=== PATIENT | female | born 1975 | race Two or more races ===

== ENCOUNTER 2021-07-03 11:54 | Inpatient (IN) ==
[2021-07-03] MEDS ORDERED: KETOROLAC TROMETHAMINE 15 MG/ML VIAL IV ONE ×2 (14:47→21:44)
[2021-07-03] MEDS ORDERED: SODIUM CHLORIDE 0.9% 1000ML 2,000 ML IV ONE (14:47)
--- NOTE | 2021-07-03 14:52 | Emergency Department Note ---
Impression & Plan Sepsis, TOA (tubo-ovarian abscess), Positive test ED Provider Note NAME: ILENE RODRIGUEZ AGE: 46 SEX: F : 1975 ARRIVES VIA: Walk-In INFORMANT: Patient ED PROVIDER(S): Shant Dillon DO CHIEF COMPLAINT: abdominal pain HPI: Patient is a 46-year-old female who presents ER for right lower quadrant abdominal pain which started 10 days ago. Pain has been present for the past 10 days and is worse with twisting, turning, and bending. It is dull and achy. She denies any nausea or vomiting. No dysuria, urgency, or frequency. Last menstrual period was over a year ago. Denies any vaginal bleeding or vaginal discharge. Fever started this past Friday. No other exacerbating or remitting factors. ROS: See above HPI for pertinent positives & negatives. A total of 10 systems reviewed and were otherwise negative. PAST MEDICAL HISTORY:See Below PAST SURGICAL HISTORY:See Below FAMILY HISTORY:See Below SOCIAL HISTORY:See Below HOME MEDICATIONS:See Below ALLERGIES:See Below VITALS:See Below PHYSICAL EXAMINATION: GENERAL: Sitting up in bed, alert, well appearing, well nourished, no distress, non-toxic EYE EXAM: normal conjunctiva. OROPHARYNX: no exudate, no erythema, lips, buccal mucosa, and tongue normal and mucous membranes are moist NECK: supple, no nuchal rigidity, no adenopathy, non-tender LUNGS: Clear to auscultation. Normal chest wall mechanics HEART: no murmurs, S1 normal and S2 normal ABDOMEN: abdomen soft, tender palpation right lower quadrant, normo-active bowel sounds, no masses, no rebound or guarding. UPPER EXTREMITIES: upper extremities are grossly normal. LOWER EXTREMITIES: No pitting edema. NEURO EXAM: Normal sensorium, cranial nerves II-XII grossly intact, normal speech, no gross weakness of arms, no gross weakness of legs. MEDICAL DECISION MAKING: Patient is a 46-year-old female who presents ER for abdominal pain which has been present for the past 10 days. IV was established blood work was obtained. She is found to be febrile and tachycardic. Labs show leukocytosis of 14.8 thousand. No significant anemia. BMP with mild hyponatremia. LFTs bilirubin and troponin was negative. Lipase was unremarkable. hCG was positive which is extremely abnormal as this patient has not had a menstrual period in over a year. UA does show nitrates leuks whites as well as bacteria and greater than [address] abdomen pelvis shows a likely tubo-ovarian abscess. Patient was updated bedside. Patient was given IV antibiotics. Patient was discussed with dottie from DATA PROCESSING CONSULTANT who evaluated the patient and recommended admission. Patient was given IV fluids Toradol Rocephin and doxycycline while in the ER uncertain of the true cause of the positive beta hCG with this related to her versus possible cancerous mass versus false positive. Triage Nursing notes reviewed. Limited review of prior medical records performed Vital Signs: reviewed and remarkable for HTN and febrile Differential diagnosis: Differential diagnoses includes but is not limited to gastritis, peptic ulcer disease, GERD, gallbladder disease, pancreatitis, small bowel obstruction, acute coronary syndrome, pericarditis, ischemic bowel, irritable bowel disease, irritable bowel syndrome, appendicitis, diverticulitis, malignancy, hernia, urinary tract infection, torsion, /ectopic (if female), perforation, trauma, infectious. ER treatment provided: See below Diagnostics interpreted by me: ECG: none Cardiac Monitoring: An order was placed for continuous cardiac monitoring. The monitor shows a rate of 80 with sinus rhythm. Laboratory studies: As stated above and show below. Imaging studies: See below Consultation(s): Discussed with Dr. Hartley who will evaluate the patient at bedside and will admit the patient Procedures: none Critical Care: None Past Med/Surg History Social History Smoking Status: Never smoker Feels Safe at Home: Yes Allergies Allergies Allergy/AdvReac Type Severity Reaction Status Date / Time No Known Allergies Allergy Unverified 07/03/21 15:30 Home Meds Home Medications Medication Instructions Recorded Confirmed omeprazole 20 mg capsule,delayed 20 mg PO DAILY 07/03/21 07/03/21 release Results & Data (ED) Vital Signs Vital Signs - 24 hr 07/03/21 12:09 07/03/21 15:17 07/03/21 15:45 Temperature 38.3 C H 38.5 C H 38.5 C H Temperature Source Oral Oral Oral Pulse Rate 94 H 93 H Pulse Rate [Radial] 93 H 86 Pulse Rhythm Regular Regular Pulse Rhythm [Radial] Regular Regular Pulse Strength Normal Pulse Strength [Radial] Normal Normal Respiratory Rate 20 16 17 Respiratory Effort / Characteristics Non-Labored Spontaneous Non-Labored Non-Labored Respiratory Depth Normal Normal Normal Respiratory Pattern Regular Regular Regular Blood Pressure 141/89 H Blood Pressure [Right Arm] 147/82 H Blood Pressure Mean 106 Blood Pressure Mean [Right Arm] 103 Blood Pressure Position [Right Arm] Pulse Oximetry 96 99 97 Oxygen Delivery Method Room Air Room Air Room Air Sepsis Recent Fever Within 48 Hours No Sepsis New/Unexplained Change in Mental Status N/A Sepsis Action Taken by Nursing No Action Required 07/03/21 16:26 07/03/21 17:10 Temperature 37.8 C H 37.2 C Temperature Source Oral Oral Pulse Rate Pulse Rate [Radial] 80 82 Pulse Rhythm Pulse Rhythm [Radial] Regular Pulse Strength Pulse Strength [Radial] Normal Respiratory Rate 16 16 Respiratory Effort / Characteristics Non-Labored Respiratory Depth Normal Normal Respiratory Pattern Regular Blood Pressure Blood Pressure [Right Arm] 160/83 H 162/93 H Blood Pressure Mean Blood Pressure Mean [Right Arm] 108 116 Blood Pressure Position [Right Arm] Lying Pulse Oximetry 98 99 Oxygen Delivery Method Room Air Room Air Sepsis Recent Fever Within 48 Hours Sepsis New/Unexplained Change in Mental Status Sepsis Action Taken by Nursing Laboratory Data Result diagrams: 07/03/21 Unknown 07/03/21 Unknown Lab Results 07/03/21 07/03/21 07/03/21 Range/Units 15:04 Unknown Unknown WBC (4.8-10.8) K/uL RBC (4.2-5.4) M/uL Hgb (12.0-16.0) g/dL POC Hgb 15.0 (12.0-16.0) g/dl Hct (37-47) % POC Hct 44 (37-47) % MCV (80-100) fL MCH (25-34) pg MCHC (32-36) g/dL RDW Std Deviation (36.4-46.3) fL RDW Coeff of Baljeet (11.5-14.5) % Plt Count (130-400) K/uL MPV (7.4-10.4) fL Immature Gran % (Auto) % Neut % (Auto) % Lymph % (Auto) % [place] % (Auto) % Eos % (Auto) % Baso % (Auto) % Neut # (Auto) (1.4-6.5) K/uL Lymph # (Auto) (1.2-3.4) K/uL [place] # (Auto) (0.11-0.59) K/uL Eos # (Auto) (0-0.5) K/uL Baso # (Auto) (0-0.2) K/uL Immature Gran # (Auto) (0.00-0.02) K/uL Polychromasia POC Sodium 137 (135-144) mmol/L Sodium 134 L (136-145) mmol/L POC Potassium 3.7 (3.3-5.0) mmol/L Potassium 3.6 (3.5-5.1) mmol/L POC Chloride 98 L (101-112) mmol/L Chloride 101 (98-107) mmol/L Carbon Dioxide 28 (21-32) mmol/L POC Total CO2 28 (24-31) mmol/L Anion Gap 5.0 (3-11) POC Anion Gap 16.0 (16-25) mmol/L POC BUN 12 (7-18) mg/dl BUN 11 (7-18) mg/dl Creatinine 0.95 (0.6-1.2) mg/dl POC Creatinine 0.8 (0.6-1.3) mg/dl Est Cr Clr Drug Dosing 72.7 ml/min Est GFR ( Amer) 83.8 ml/min Est GFR (Non-Af Amer) 72.3 ml/min BUN/Creatinine Ratio 11.1 (10-20) Glucose 97 (70-99) mg/dl POC Glucose (other) 108 H (70-99) mg/dl Calcium 9.2 (8.5-10.1) mg/dl POC Ioniz Calcium Anuel 1.17 (1.12-1.32) mmol/l Total Bilirubin 0.5 (0.2-1) mg/dl AST 15 (15-37) U/L ALT 23 (12-78) U/L Alkaline Phosphatase 105 (45-117) U/L Troponin I < 0.015 (0-0.045) ng/ml Total Protein 8.8 H (6.4-8.2) gm/dl Albumin 3.4 (3.4-5.0) gm/dl Globulin 5.4 H (2.5-4.0) gm/dl Albumin/Globulin Ratio 0.6 L (0.9-2) Lipase 126 (73-393) U/L HCG, Qual Positive (Negative) Urine Color Urine Appearance (Clear) Urine pH (4.5-7.5) Ur Specific [place] (1.000-1.030) Urine Protein (Negative) Urine Glucose (UA) (Negative) Urine Ketones (Negative) Urine Blood (Negative) Urine Nitrite (Negative) Urine Bilirubin (Negative) Urine Urobilinogen (Negative) Ur Leukocyte Esterase (Negative) Urine WBC (Auto) (0-5) /hpf Urine RBC (Auto) (0-4) /hpf U Hyaline Cast (Auto) (0-5) /lpf U Epithel Cells (Auto) (0-5) /lpf Urine Bacteria (Auto) (Negative) Granular Casts (0) /lpf 07/03/21 07/03/21 Range/Units Unknown Unknown WBC 14.84 H (4.8-10.8) K/uL RBC 4.43 (4.2-5.4) M/uL Hgb 14.3 (12.0-16.0) g/dL POC Hgb (12.0-16.0) g/dl Hct 42.9 (37-47) % POC Hct (37-47) % MCV 96.8 (80-100) fL MCH 32.3 (25-34) pg MCHC 33.3 (32-36) g/dL RDW Std Deviation 48.7 H (36.4-46.3) fL RDW Coeff of Baljeet 13.7 (11.5-14.5) % Plt Count 357 (130-400) K/uL MPV 10.2 (7.4-10.4) fL Immature Gran % (Auto) 0.7 % Neut % (Auto) 84.1 % Lymph % (Auto) 8.1 % [place] % (Auto) 6.9 % Eos % (Auto) 0.1 % Baso % (Auto) 0.1 % Neut # (Auto) 12.49 H (1.4-6.5) K/uL Lymph # (Auto) 1.20 (1.2-3.4) K/uL [place] # (Auto) 1.03 H (0.11-0.59) K/uL Eos # (Auto) 0.01 (0-0.5) K/uL Baso # (Auto) 0.01 (0-0.2) K/uL Immature Gran # (Auto) 0.10 H (0.00-0.02) K/uL Polychromasia 1+ POC Sodium (135-144) mmol/L Sodium (136-145) mmol/L POC Potassium (3.3-5.0) mmol/L Potassium (3.5-5.1) mmol/L POC Chloride (101-112) mmol/L Chloride (98-107) mmol/L Carbon Dioxide (21-32) mmol/L POC Total CO2 (24-31) mmol/L Anion Gap (3-11) POC Anion Gap (16-25) mmol/L POC BUN (7-18) mg/dl BUN (7-18) mg/dl Creatinine (0.6-1.2) mg/dl POC Creatinine (0.6-1.3) mg/dl Est Cr Clr Drug Dosing ml/min Est GFR ( Amer) ml/min Est GFR (Non-Af Amer) ml/min BUN/Creatinine Ratio (10-20) Glucose (70-99) mg/dl POC Glucose (other) (70-99) mg/dl Calcium (8.5-10.1) mg/dl POC Ioniz Calcium Anuel (1.12-1.32) mmol/l Total Bilirubin (0.2-1) mg/dl AST (15-37) U/L ALT (12-78) U/L Alkaline Phosphatase (45-117) U/L Troponin I (0-0.045) ng/ml Total Protein (6.4-8.2) gm/dl Albumin (3.4-5.0) gm/dl Globulin (2.5-4.0) gm/dl Albumin/Globulin Ratio (0.9-2) Lipase (73-393) U/L HCG, Qual (Negative) Urine Color Dark Yellow Urine Appearance Cloudy A (Clear) Urine pH 5.5 (4.5-7.5) Ur Specific [place] 1.031 H (1.000-1.030) Urine Protein 3+ H (Negative) Urine Glucose (UA) Negative (Negative) Urine Ketones Trace H (Negative) Urine Blood 1+ H (Negative) Urine Nitrite Positive A (Negative) Urine Bilirubin 1+ H (Negative) Urine Urobilinogen Negative (Negative) Ur Leukocyte Esterase Trace H (Negative) Urine WBC (Auto) 10-30 H (0-5) /hpf Urine RBC (Auto) 0-4 (0-4) /hpf U Hyaline Cast (Auto) 10-30 H (0-5) /lpf U Epithel Cells (Auto) >30 H (0-5) /lpf Urine Bacteria (Auto) 4+ H (Negative) Granular Casts 1-5 H (0) /lpf Administered Medications Doxycycline Hyclate 100 mg/ (Dextrose) 110 mls @ 50 mls/hr IV NOW STA Stop: 07/03/21 18:43 Last Admin: 07/03/21 17:52 Dose: 50 mls/hr Documented by: [id number] Discontinued Medications Sodium Chloride (Nss 1000ml) 2,000 mls @ 999 mls/hr IV .Q2H1M ONE Stop: 07/03/21 16:38 Last Admin: 07/03/21 16:28 Dose: 999 mls/hr Documented by: [id number] Infusion: 07/03/21 16:28 Dose: 999 mls/hr Documented by: [id number] Admin: 07/03/21 15:06 Dose: 999 mls/hr Documented by: [id number] Sodium Chloride (Nss 1000ml) 2,000 mls @ 999 mls/hr IV .Q2H1M ONE Stop: 07/03/21 16:47 Last Admin: 07/03/21 17:16 Dose: 999 mls/hr Documented by: [id number] Ceftriaxone Sodium (Rocephin) 1,000 mg in 50 mls @ 100 mls/hr IV NOW STA Stop: 07/03/21 17:01 Last Infusion: 07/03/21 17:53 Dose: 0 mls/hr Documented by: [id number] Admin: 07/03/21 17:07 Dose: 100 mls/hr Documented by: [id number] Ioversol (Optiray 320 100ml) 94 ml IV ONCE ONE Stop: 07/03/21 15:22 Last Admin: 07/03/21 15:21 Dose: 94 ml Documented by: [id number] Ketorolac Tromethamine (Ketorolac Tromethamine 15 Mg/Ml Vial) 15 mg IV NOW ONE Stop: 07/03/21 14:48 Last Admin: 07/03/21 15:11 Dose: 15 mg Documented by: [id number] Imaging Data Radiologist's Impression: Abdomen/Pelvis CT 07/03/21 14:38 CT abd pelvis IV con only CLINICAL HISTORY: fever abd pain COMPARISON STUDY: None. TECHNIQUE: A dose lowering technique was utilized adhering to the principles of ALARA. CT DOSE: 584.97 mGycm FINDINGS: Lower chest: Limited evaluation of lung bases shows no evidence of acute abnormalities.. Liver: The contrast-enhanced liver is normal in size, contour, and attenuation. There is no intrahepatic biliary ductal dilatation. The hepatic veins and portal veins are patent. Focal calcification is seen within right lobe of the liver. Gallbladder: Unremarkable. Spleen: Normal in size and attenuation. Pancreas: Unremarkable. Adrenal glands: Unremarkable. Kidneys: There is symmetric renal cortical enhancement. The kidneys are normal in size without hydronephrosis. Pelvic viscera: Urinary bladder is partially decompressed which limits evaluation. Uterine cavity is mildly enlarged. Tubular hypoattenuating lesions with mucosal thickening, septation, enhancement and surrounding edema is seen. Small amount of free fluid is seen within cul-de-sac. Bowel: Bowel loops are nondilated. Appendix is not well seen. Loops of large bowel are fluid-filled which could be seen in diarrheal state. Mild diverticulosis of sigmoid colon is seen which is associated with mild surround ing fat stranding which might represent developing diverticulitis or reactive changes due to adjacent inflammatory pelvic process. Peritoneum: There is no intraperitoneal free air or abdominal ascites. Vasculature: The abdominal aorta is normal in course and caliber. Adenopathy: None. Skeletal structures: Minimal degenerative changes of the spine. IMPRESSION: 1. Tubular hypoattenuating lesions with septation, mucosal enhancement and thickening as well as surrounding edema could represent pyosalpinx/tubo-ovarian abscess. Further DATA PROCESSING CONSULTANT evaluation and possible pelvic ultrasound might be considered . 2. Diverticulosis of sigmoid colon colon is seen with mild surrounding fat stranding which might represent reactive changes due to close proximity a dose of pelvic inflammatory process versus developing diverticulitis which is less likely. 3. The rest of findings as above. ACT 112: Negative or not required by law. The above report was generated using voice recognition software. It may contain grammatical, syntax or spelling errors. Electronically signed by: Neela Barrera DO 07/03/2021 4:07 PM Discharge Plan Visit Data Chief Complaint: Abdominal Pain Stated Complaint: ABDOMINAL PAIN ED Provider: Shant Dillon Discharge Problem: Sepsis, TOA (tubo-ovarian abscess), Positive test Forms Stand Alone Forms: [facility] Prescriptions Prescriptions: No Action omeprazole 20 mg capsule,delayed release(DR/EC) 20 mg PO DAILY RF: 0 Referrals Referrals: Vicky Hernandez [Nurse Heel Lining Paster] - Discharge Problem: Sepsis Qualifiers: Sepsis type: sepsis due to unspecified organism Sepsis acute organ dysfunction status: unspecified Qualified Code(s): A41.9 - Sepsis, unspecified organism
[2021-07-03] MEDS: SODIUM CHLORIDE 0.9% 1000ML 2,000 ML IV ONE ×2 (15:06→16:28)
[2021-07-03 15:17] LABS: iSTAT Creatinine 0.8 mg/dl (0.6-1.3); iSTAT Ionized Calcium 1.17 mmol/l (1.12-1.32); iSTAT Potassium 3.7 mmol/L (3.3-5.0)
[2021-07-03 15:17] LABS: Appearance Urine Cloudy (Clear); Bacteria Urine Automated 4+ (Negative); Blood Urine 1+ (Negative); Color Urine Dark Yellow; Epithelial Cell Urine Auto >30 /lpf (0-5); Glucose Urine UA Negative (Negative); Ketones Urine Trace (Negative); Leukocyte Esterase Urine Trace (Negative); Nitrite Urine Positive (Negative); Protein Urine 3+ (Negative); RBC Urine Automated 0-4 /hpf (0-4); Specific Gravity Urine 1.031 (1.000-1.030); Urobilinogen Urine Negative (Negative); pH Urine 5.5 (4.5-7.5)
[2021-07-03] MEDS ORDERED: OPTIRAY 320 100ml IV ONE (15:21)
[2021-07-03 15:22] LABS: Bilirubin Urine 1+ (Negative)
[2021-07-03 15:33] LABS: Alanine Aminotransferase 23 U/L (12-78); Albumin Level 3.4 gm/dl (3.4-5.0); Aspartate Aminotransferase 15 U/L (15-37); BUN Creatinine Ratio 11.1 (10-20); Blood Urea Nitrogen 11 mg/dl (7-18); Calcium 9.2 mg/dl (8.5-10.1); Carbon Dioxide 28 mmol/L (21-32); Chloride 101 mmol/L (98-107); Creatinine Clr Calc Pharmacy 72.7 ml/min; Est GFR (African American) 83.8 ml/min; Est GFR (Non-African American) 72.3 ml/min; Glucose 97 mg/dl (70-99); Lipase 126 U/L (73-393); Potassium 3.6 mmol/L (3.5-5.1); Sodium 134 mmol/L (136-145)
[2021-07-03 15:34] LABS: Basophils # (auto) 0.01 K/uL (0-0.2); Basophils % (auto) 0.1 %; Eosinophils # (auto) 0.01 K/uL (0-0.5); Eosinophils % (auto) 0.1 %; Hematocrit (blood only) 42.9 % (37-47); Hemoglobin 14.3 g/dL (12.0-16.0); Immature Granulocytes % (auto) 0.7 %; Lymphocytes % (auto) 8.1 %; Mean Corpuscular Hemoglobin 32.3 pg (25-34); Mean Corpuscular Hgb Conc 33.3 g/dL (32-36); Mean Corpuscular Volume 96.8 fL (80-100); Mean Platelet Volume 10.2 fL (7.4-10.4); Monocytes # (auto) 1.03 K/uL (0.11-0.59); Monocytes % (auto) 6.9 %; Neutrophils # (auto) 12.49 K/uL (1.4-6.5); Neutrophils % (auto) 84.1 %; Platelet Count 357 K/uL (130-400); Polychromasia 1+; RDW Coefficient of Variation 13.7 % (11.5-14.5); RDW Standard Deviation 48.7 fL (36.4-46.3); Red Blood Count 4.43 M/uL (4.2-5.4); White Blood Count 14.84 K/uL (4.8-10.8)
[2021-07-03 15:38] LABS: Albumin Globulin Ratio 0.6 (0.9-2); Alkaline Phosphatase 105 U/L (45-117); Bilirubin,Total 0.5 mg/dl (0.2-1); Globulin 5.4 gm/dl (2.5-4.0); Total Protein 8.8 gm/dl (6.4-8.2); Troponin I < 0.015 ng/ml (0-0.045)
[2021-07-03 16:03] LABS: Pregnancy Test, Serum Positive (Negative)
--- NOTE | 2021-07-03 16:08 | CT Scan Report ---
CT abd pelvis IV con only CLINICAL HISTORY: fever abd pain COMPARISON STUDY: None. TECHNIQUE: A dose lowering technique was utilized adhering to the principles of ALARA. CT DOSE: 584.97 mGycm FINDINGS: Lower chest: Limited evaluation of lung bases shows no evidence of acute abnormalities.. Liver: The contrast-enhanced liver is normal in size, contour, and attenuation. There is no intrahepa tic biliary ductal dilatation. The hepatic veins and portal veins are patent. Focal calcification is seen within right lobe of the liver. Gallbladder: Unremarkable. Spleen: Normal in size and attenuation. Pancreas: Unremarkable. Adrenal glands: Unremarkable. Kidneys: There is symmetric renal cortical enhancement. The kidneys are normal in size without hydron ephrosis. Pelvic viscera: Urinary bladder is partially decompressed which limits evaluation. Uterine cavity is mildly enlarged. Tubular hypoattenuating lesions with mucosal thickening, septation, enhancement and surrounding edema is seen. Small amount of free fluid is seen within cul-de-sac. Bowel: Bowel loops are nondilated. Appendix is not well seen. Loops of large bowel are fluid-filled w hich could be seen in diarrheal state. Mild diverticulosis of sigmoid colon is seen which is associat ed with mild surrounding fat stranding which might represent developing diverticulitis or reactive ch anges due to adjacent inflammatory pelvic process. Peritoneum: There is no intraperitoneal free air or abdominal ascites. Vasculature: The abdominal aorta is normal in course and caliber. Adenopathy: None. Skeletal structures: Minimal degenerative changes of the spine. IMPRESSION: 1. Tubular hypoattenuating lesions with septation, mucosal enhancement and thickening as well as sera rounding edema could represent pyosalpinx/tubo-ovarian abscess. Further POLYMER TESTER evaluation and possible p elvic ultrasound might be considered . 2. Diverticulosis of sigmoid colon colon is seen with mild surrounding fat stranding which might rep resent reactive changes due to close proximity a dose of pelvic inflammatory process versus developin g diverticulitis which is less likely. 3. The rest of findings as above. ACT 112: Negative or not required by law. The above report was generated using voice recognition software. It may contain grammatical, syntax o r spelling errors. Electronically signed by: Neela Barrera DO 07/03/2021 4:07 PM
[2021-07-03] MEDS ORDERED: DOXYCYCLINE HYCLATE 100 MG in DEXTROSE 5% 100 ML IV STA (16:32)
[2021-07-03] MEDS ORDERED: cefTRIAXone SODIUM 1,000 MG/50 ML BAG IV STA (16:32)
[2021-07-03] MEDS ORDERED: ALUMINUM/MAGNESIUM/SIMETH (MAALOX MAX) 30 ML UDC PO PRN (18:00)
[2021-07-03] MEDS ORDERED: ZOLPIDEM TARTRATE 5 MG TAB PO PRN (18:00)
[2021-07-03] MEDS ORDERED: MAGNESIUM HYDROXIDE SUSP 30 ML UDC PO PRN (18:00)
--- NOTE | 2021-07-03 19:50 | Ultrasound Report ---
PELVIC ULTRASOUND CLINICAL HISTORY: suspected TOA with +ve test COMPARISON STUDY: CT of the abdomen and pelvis performed earlier today. TECHNIQUE: Transabdominal and transvaginal sonography of the pelvis was performed. FINDINGS: Uterus measures 9.7 x 4.3 x 5.2 cm. Endometrium measures 4 mm in thickness. No intrauterine gestational sac is identified. There is a small amount of fluid within the pelvis. Left ovary is son ographically normal on transabdominal exam, measuring 2.3 x 1.7 x 2.5 cm. The right ovary is partiall y obscured, measuring approximately 2.9 x 2.1 x 2.3 cm. Color flow is identified within each ovary. N ote is made of a complex superior right adnexal fluid collection, adjacent to the ovary and superior aspect of the uterus. This extends to the midline. This corresponds to the fluid collection shown on CT performed earlier today. Measurements are difficult to obtain by sonography however this measures approximately 6 x 4 cm. This contains hypoechoic material. IMPRESSION: 1. Complex multiloculated collection within the superior right adnexa, adjacent to the right ovary an d superior aspect of the uterus extending to the midline. This corresponds to the collection shown on CT. Measurements difficult to obtain by sonography however the largest component measures approximat tomás 6 x 4 cm. This is suggestive of a tubo-ovarian abscess. 2. No intrauterine gestational sac identified. This could be correlated with beta hCG levels. 3. Small amount of fluid within the pelvis. ACT 112: Negative or not required by law. Electronically signed by: Dayron Garcia M.D. 07/03/2021 7:48 PM
[2021-07-03] MEDS ORDERED: Nursing to Pharmacy Communication SCH (21:15)
[2021-07-03] MEDS ORDERED: oxyCODONE/ACETAMINOPHEN 5mg/325mg TAB PO PRN (21:41)
[2021-07-03] MEDS: LACTATED RINGER'S 1,000 ML IV SCH (21:46)
[2021-07-03] MEDS ORDERED: KETOROLAC TROMETHAMINE 15 MG/ML VIAL ONE (22:09)
[2021-07-03] MEDS: cefOXitin 2,000 MG/60 ML BAG IV SCH (22:15)
--- NOTE | 2021-07-04 01:01 | History and Physical Report ---
HISTORY OF PRESENT ILLNESS: The patient is a 46-year-old who presented to the Emergency Room with co mplaints of right abdominal pain x10 days. CT scan done showed possible tubo-ovarian abscess. The p marilu reports the pain has been dull and achy over the last 10 days and was getting worse. She denie s any shortness of breath, chills, fever, nausea or vomiting. The pain however, was worse with twist ing, turning or bending. PAST MEDICAL HISTORY: No diabetes, hypertension or asthma. PAST SURGICAL HISTORY: The patient had tubal ligation for over 10 years. Last menses was over a yea r ago. FAMILY HISTORY: Noncontributory. SOCIAL HISTORY: The patient denies tobacco, drug or alcohol use. PHYSICAL EXAMINATION: GENERAL: Well-developed, well-nourished white female in moderate discomfort, but in no acute distres s. VITAL SIGNS: Blood pressure 156/75, pulse of 94, respirations 18, temperature 97.9. HEART: S1 and S2, regular rhythm and rate. LUNGS: Clear to auscultation bilaterally. ABDOMEN: Slightly tender, nondistended, no guarding, no rebound. EXTREMITIES: No cyanosis, clubbing or edema. ASSESSMENT: Right abdominal and pelvic pain x10 days. CT scan suspicious for tubo-ovarian abscess. Of interest is a positive test that was done via urine. The patient has fever in the ER, temperature 37.9. The patient has been given Rocephin and doxycycline in the ER. PLAN: Admit. Start IV antibiotics and treat the patient for tubo-ovarian abscess. Quantitative hCG is ordered with ultrasound. Blood cultures ordered as well. Pelvic sonogram is ordered as well. DIAGNOSIS: For now is, tubo-ovarian abscess, possible ectopic . Job ID: [id number]
[2021-07-04] MEDS: ACETAMINOPHEN 325 MG TAB PO PRN ×4 (03:25→23:25)
[2021-07-04] MEDS: cefOXitin 2,000 MG/60 ML BAG IV SCH ×4 (03:25→21:27)
[2021-07-04] MEDS: LACTATED RINGER'S 1,000 ML IV SCH ×2 (05:19→16:27)
[2021-07-04 06:25] LABS: Basophils # (auto) 0.01 K/uL (0-0.2); Basophils % (auto) 0.1 %; Eosinophils # (auto) 0.06 K/uL (0-0.5); Eosinophils % (auto) 0.5 %; Hemoglobin 11.3 g/dL (12.0-16.0); Immature Granulocytes # (auto) 0.04 K/uL (0.00-0.02); Immature Granulocytes % (auto) 0.3 %; Lymphocytes # (auto) 1.24 K/uL (1.2-3.4); Lymphocytes % (auto) 9.7 %; Mean Corpuscular Hemoglobin 31.7 pg (25-34); Mean Corpuscular Hgb Conc 32.3 g/dL (32-36); Mean Platelet Volume 9.7 fL (7.4-10.4); Monocytes % (auto) 10.2 %; Neutrophils # (auto) 10.12 K/uL (1.4-6.5); Neutrophils % (auto) 79.2 %; Platelet Count 267 K/uL (130-400); RDW Coefficient of Variation 13.5 % (11.5-14.5); RDW Standard Deviation 48.6 fL (36.4-46.3); Red Blood Count 3.57 M/uL (4.2-5.4); White Blood Count 12.77 K/uL (4.8-10.8)
[2021-07-04 06:57] LABS: Albumin Globulin Ratio 0.6 (0.9-2); Albumin Level 2.2 gm/dl (3.4-5.0); BUN Creatinine Ratio 10.5 (10-20); Bilirubin,Total 0.4 mg/dl (0.2-1); Calcium 8.1 mg/dl (8.5-10.1); Creatinine Clr Calc Pharmacy 92.1 ml/min; Est GFR (African American) 111.6 ml/min; Est GFR (Non-African American) 96.3 ml/min; Globulin 3.7 gm/dl (2.5-4.0); Potassium 3.4 mmol/L (3.5-5.1); Total Protein 5.9 gm/dl (6.4-8.2)
[2021-07-04] MEDS ORDERED: LABETALOL HCL IV 5 MG/ML 20ML IV PRN (08:15)
[2021-07-04] MEDS ORDERED: POTASSIUM CHLORIDE CRTAB 20 MEQ TABCR PO ONE (08:17)
--- NOTE | 2021-07-04 08:40 | Hospitalist Consultation ---
Date of Consultation July 04, 2021 Assessment & Plan (1) TOA (tubo-ovarian abscess): - CT of the abdomen completed showed a possible tubo-ovarian abscess - hCG is positive - on pelvic ultrasound there is no intrauterine gestational sac, it does show a complex multiloculated collection within the superior right adnexa, with the largest component measuring 6 x 4 cm, suggestive of tubo-ovarian abscess. - CT is also showing possible early stage diverticulitis versus inflammation from surrounding area--however she does not endorse abdominal pain other than around the RLQ, bowels are moving, loose, no melana - Urinarlysis is positive, and cultures thus far are growing gram negative ba cilli. Denies urinary symptoms. - Blood cultures pending - Continue IV cefoxitin, adjust based off of cultures from urine, blood in response (2) Positive test: - concern for ectopic ? Hcg level is 4. - Pt reports having tubal ligation ~20 years ago, her youngest son is about to turn 22 years old. (3) Hypertension: - BP elevated at its highest, 173/86, reduced to 150s/85 currently - Start nifedipine 30 mg QAM and monitor, give first dose now - able to adjust medication as she is not truly - Hydralazine PO prn for htn (4) Hypomagnesemia: Checking mag, 1.6, replace with 1 g IV - likely to improve BP as well (5) Hypokalemia: - K 3.4, will replace and follow daily BMP for electrolytes (6) Asymptomatic bacteriuria: - Follow urine culture, no urinary symptoms, continue IV abx as above DVT PPx: - simone, scds CODE: Full code Dispo: From home, likely to remain in the hospital x 1-2 days Thank you for involving us in the care of Mrs. Meeks. Please do not hesitate to call with questions or concerns. At this time medicine service will follow along. Supervising Physician Co-Signing Physician Notes Patient is a 46-year-old female with history of GERD and in no other significant past medical history was consulted for hypertension management. Patient is c urrently admitted with right lower quadrant abdominal pain since 10 days duration associated with fever, poor appetite and was diagnosed to have possible tubo-ovarian abscess. Blood pressure was elevated in the 160s while hospitalized but patient denies any headache, dizziness, change in vision, chest pain, dyspnea. Patient had no known history of hypertension and currently not on any antihypertensives at home. On exam patient is moderately built and nourished, no apparent distress, normocephalic atraumatic, normal breath sounds, clear to auscultation, S1-S2, no murmur, no pedal edema, abdomen soft, right lower quadrant tenderness, no guarding or rigidity, normal bowel sounds, alert, awake, oriented, grossly nonfocal deficits. Tubo-ovarian abscess management as per primary team. Hypertension--started on nifedipine. Will adjust medications as needed. Agree with replacing magnesium for hypoglycemia. Suspected urinary tract infection. Urine culture pending. Continue antibiotics as above and adjust as needed. Also noted findings suggestive of suspected early diverticulitis on CT. Consider repeat CT in 1 to 2 weeks if no resolution of symptoms with IV antibiotics. I personally reviewed the record. Patient is interviewed and examined at bedside. Patient's care is coordinated with Pratibha Shipman PA-C. Please refer to the documentation above for details of patient's presentation and for discussion of other issues. History of Present Illness Reason for Consultation: Hypertension Requesting Physician: Dr. 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 She presented to the ER with complaints of lower right-sided abdominal pain x10 days. Reports having a fever for about 3 days with the highest being 100.9 when she came to the ER yesterday. She had a minimal appetite, and did not moving her bowels much in the past week. Today her bowels are moving and they are loose, no blood, no pain with moving them. She tolerated breakfast without difficulty. Patient also is urinating well, no burning, increased frequency, retention or hematuria. In the past, she has never been told about having high blood pressure, and has never been on medication for that. Her only medications include omeprazole and ibuprofen. CT of the abdomen completed showed a possible tubo-ovarian abscess. Her hCG is positive, however on pelvic ultrasound there is no intrauterine gestational sac, it does show a complex multiloculated collection within the superior right adnexa, with the largest component measuring 6 x 4 cm, suggestive of tubo- ovarian abscess. Urinarlysis is positive, and cultures thus far are growing gram negative bacilli. Blood cultures pending. 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 Beliefs That Will Affect Care: None Current Living Situation: Family Feels Safe at Home: Yes Safety Concerns: Feels Safe At This Time Assistive Devices: None Review of Systems Review of Systems: Constitutional: No fever, sweats or chills Eyes: No diplopia, no worsening or blurred vision ENT: normal hearing, no trouble swallowing Respiratory: No cough, sputum, dyspnea at rest or on exertion Cardiovascular: No chest pain, tightness or palpitations Abdomen: + low abdominal pain, no nausea, vomiting, diarrhea or constipation Musculoskeletal: No joint pain, calf pain, swelling Neurologic: No weakness, numbness/tingling, or balance problems Psychiatric: No anxiety or depression Skin: No rash or itch Physical Exam Physical Exam: General: awake, alert, no apparent distress Head: Normocephalic, atraumatic ENT: PERRL, EOMI, no pharyngeal exudate, mucous membranes moist Chest: Clear to auscultation, on room air, no adventitious breath sounds Cardiac: Regular rate and rhythm, no murmur, no JVD, normal peripheral pulses, good capillary refill Abdominal: NABS x 4 quadrants, soft, nondistended, + tender to palpation in suprapubic region and RLQ, otherwise nontender, no tympany, no rebound or guarding Extremities: Normal inspection, no peripheral edema or erythema, calfs nontender to palpation Psych: Normal mood and affect Neuro: AAO x 3, strength intact bilaterally and rated 5/5, no motor deficits, speech is clear, no peripheral sensory deficits Results & Data Results & Data ([facility]) Vital Signs (Past 12 Hours) Vital Signs Temp Pulse Pulse Pulse Resp BP BP 07/04/21 08:00 37.2 C 79 18 151/85 H 07/04/21 03:25 37.0 C 93 H 18 150/81 H 07/03/21 23:30 37.3 C 92 H 18 157/78 H 07/03/21 21:30 37.9 C H 94 H 18 156/75 H 173/86 H 07/03/21 21:29 18 07/03/21 20:59 95 H 17 172/92 H Pulse Ox 07/04/21 08:00 99 07/04/21 03:25 96 07/03/21 23:30 98 07/03/21 21:30 98 07/03/21 21:29 07/03/21 20:59 97 Laboratory Results Short CBC 07/04/21 Range/Units 05:57 WBC 12.77 H (4.8-10.8) K/uL Hgb 11.3 L D (12.0-16.0) g/dL Hct 35.0 L (37-47) % Plt Count 267 (130-400) K/uL BMP 07/04/21 05:57 Sodium 141 D Potassium 3.4 L Chloride 108 H Carbon Dioxide 25 BUN 8 Creatinine 0.75 Glucose 98 Calcium 8.1 L Liver Function 07/04/21 Range/Units 05:57 Total Bilirubin 0.4 (0.2-1) mg/dl AST 10 L (15-37) U/L ALT 15 (12-78) U/L Alkaline Phosphatase 73 (45-117) U/L Albumin 2.2 L (3.4-5.0) gm/dl Diagnostic Findings CT ABD:Tubular hypoattenuating lesions with septation, mucosal enhancement and thickening as well as surrounding edema could represent pyosalpinx/tubo-ovarian abscess. Further [employer] OPERATOR evaluation and possible pelvic ultrasound might be considered . Diverticulosis of sigmoid colon colon is seen with mild surrounding fat stranding which might represent reactive changes due to close proximity a dose of pelvic inflammatory process versus developing diverticulitis which is less likely. The rest of findings as above.
[2021-07-04] MEDS ORDERED: NON-FORMULARY MEDICATION (Omeprazole 20 mg capsule,delayed release(DR/EC)) PO SCH (09:00)
[2021-07-04] MEDS: NIFEdipine EXTENDED REL 30 MG TABCR PO SCH (09:07)
[2021-07-04] MEDS ORDERED: hydrALAZINE 10 MG TAB PO PRN (09:21)
[2021-07-04] MEDS ORDERED: MAGNESIUM SULFATE / D5W 1 GM/100 ML BAG IV ONE (09:45)
[2021-07-04] MEDS: PANTOprazole 40 MG TAB PO SCH (09:51)
--- NOTE | 2021-07-04 10:26 | Obstetrical Progress Note ---
Date of Service July 04, 2021 Assessment & Plan Admission and Anticipated Discharge Date Admission Date: July 03, 2021 Subjective Patient is reevaluated. She feels much better, pain is down to 1 out of 10. She denies fever, chills, problems with urination nor with bowels. She has a good appetite and tolerating regular diet. Discussed about the findings and treatment plan. Her blood pressures have been elevated and I called medicine for consultation. They started Procardia XL and IV magnesium. Cultures are pending, white blood cell count came down. Vital Signs Temp Pulse Pulse Resp BP Pulse Ox 07/04/21 08:00 37.2 C 79 18 151/85 H 99 07/04/21 03:25 37.0 C 93 H 18 150/81 H 96 07/03/21 23:30 37.3 C 92 H 18 157/78 H 98 Vital Signs Temp Pulse Pulse Pulse Pulse Resp BP 07/04/21 08:00 37.2 C 79 18 07/04/21 03:25 37.0 C 93 H 18 07/03/21 23:30 37.3 C 92 H 18 07/03/21 21:30 37.9 C H 94 H 18 07/03/21 21:29 18 07/03/21 20:59 95 H 17 07/03/21 17:10 37.2 C 82 16 07/03/21 17:00 162/93 H 07/03/21 16:30 85 15 157/86 H 07/03/21 16:26 37.8 C H 80 16 07/03/21 16:00 80 15 160/83 H 07/03/21 15:48 85 15 147/82 H 07/03/21 15:45 38.5 C H 86 17 07/03/21 15:17 38.5 C H 93 H 93 H 16 07/03/21 12:09 38.3 C H 94 H 20 141/89 H BP BP Pulse Ox 07/04/21 08:00 151/85 H 99 07/04/21 03:25 150/81 H 96 07/03/21 23:30 157/78 H 98 07/03/21 21:30 156/75 H 173/86 H 98 07/03/21 21:29 07/03/21 20:59 172/92 H 97 07/03/21 17:10 162/93 H 99 07/03/21 17:00 07/03/21 16:30 98 07/03/21 16:26 160/83 H 98 07/03/21 16:00 98 07/03/21 15:48 98 07/03/21 15:45 147/82 H 97 07/03/21 15:17 99 07/03/21 12:09 96 Intake and Output 07/03/21 07/04/21 07/04/21 22:59 06:59 14:59 Intake Total 5585.3 / 6589.05 1003.75 / 6589.05 676.667 / 676.667 Output Total 452 / 452 Balance 5585.3 / 6137.05 551.75 / 6137.05 676.667 / 676.667 Intake: IV 5585.3 / 6589.05 1003.75 / 6589.05 676.667 / 676.667 Doxycycline Hyclate 100 mg In 110 / 110 Dextrose 5% 100 ml @ 50 mls/hr IV NOW STA Rx#:[id number] Lactated Ringer's 1,000 ml @ 943.75 / 943.75 616.667 / 616.667 125 mls/hr IV .Q8H BROOKE Rx#: [id number] Sodium Chloride 0.9% 1000ML 2, 5365.3 / 5365.3 000 ml @ 999 mls/hr IV .Q2H1M ONE Rx#:[id number] cefOXitin 2,000 mg In 60 ml @ 60 / 120 60 / 120 60 / 60 100 mls/hr IV Q6H BROOKE Rx#: [id number] cefTRIAXone SODIUM 1,000 mg In 50 / 50 50 ml @ 100 mls/hr IV NOW STA Rx#:[id number] Output: Urine 450 / 450 # Bowel Movements 2 / 2 Other: Weight 71.214 kg Weight Measurement Method Standing Scale Lab Results 07/03/21 07/03/21 07/03/21 Range/Units 15:04 18:30 18:30 WBC (4.8-10.8) K/uL RBC (4.2-5.4) M/uL Hgb (12.0-16.0) g/dL POC Hgb 15.0 (12.0-16.0) g/dl Hct (37-47) % POC Hct 44 (37-47) % MCV (80-100) fL MCH (25-34) pg MCHC (32-36) g/dL RDW Std Deviation (36.4-46.3) fL RDW Coeff of Baljeet (11.5-14.5) % Plt Count (130-400) K/uL MPV (7.4-10.4) fL Immature Gran % (Auto) % Neut % (Auto) % Lymph % (Auto) % Hays % (Auto) % Eos % (Auto) % Baso % (Auto) % Neut # (Auto) (1.4-6.5) K/uL Lymph # (Auto) (1.2-3.4) K/uL Hays # (Auto) (0.11-0.59) K/uL Eos # (Auto) (0-0.5) K/uL Baso # (Auto) (0-0.2) K/uL Immature Gran # (Auto) (0.00-0.02) K/uL Polychromasia POC Sodium 137 (135-144) mmol/L Sodium (136-145) mmol/L POC Potassium 3.7 (3.3-5.0) mmol/L Potassium (3.5-5.1) mmol/L POC Chloride 98 L (101-112) mmol/L Chloride (98-107) mmol/L Carbon Dioxide (21-32) mmol/L POC Total CO2 28 (24-31) mmol/L Anion Gap (3-11) POC Anion Gap 16.0 (16-25) mmol/L POC BUN 12 (7-18) mg/dl BUN (7-18) mg/dl Creatinine (0.6-1.2) mg/dl POC Creatinine 0.8 (0.6-1.3) mg/dl Est Cr Clr Drug Dosing ml/min Est GFR ( Amer) ml/min Est GFR (Non-Af Amer) ml/min BUN/Creatinine Ratio (10-20) Glucose (70-99) mg/dl POC Glucose (other) 108 H (70-99) mg/dl Calcium (8.5-10.1) mg/dl POC Ioniz Calcium Anuel 1.17 (1.12-1.32) mmol/l Magnesium (1.8-2.4) mg/dl Total Bilirubin (0.2-1) mg/dl AST (15-37) U/L ALT (12-78) U/L Alkaline Phosphatase (45-117) U/L Troponin I (0-0.045) ng/ml Total Protein (6.4-8.2) gm/dl Albumin (3.4-5.0) gm/dl Globulin (2.5-4.0) gm/dl Albumin/Globulin Ratio (0.9-2) Lipase (73-393) U/L HCG, Qual (Negative) HCG, Quant mIU/ml Urine Color Urine Appearance (Clear) Urine pH (4.5-7.5) Ur Specific Hyde (1.000-1.030) Urine Protein (Negative) Urine Glucose (UA) (Negative) Urine Ketones (Negative) Urine Blood (Negative) Urine Nitrite (Negative) Urine Bilirubin (Negative) Urine Urobilinogen (Negative) Ur Leukocyte Esterase (Negative) Urine WBC (Auto) (0-5) /hpf Urine RBC (Auto) (0-4) /hpf U Hyaline Cast (Auto) (0-5) /lpf U Epithel Cells (Auto) (0-5) /lpf Urine Bacteria (Auto) (Negative) Granular Casts (0) /lpf COVID-19 Eval Order Covid19 at [facility] SARS-CoV-2 (PCR) NEGATIVE (Negative) 07/03/21 07/03/21 07/03/21 Range/Units Unknown Unknown Unknown WBC 14.84 H (4.8-10.8) K/uL RBC 4.43 (4.2-5.4) M/uL Hgb 14.3 (12.0-16.0) g/dL POC Hgb (12.0-16.0) g/dl Hct 42.9 (37-47) % POC Hct (37-47) % MCV 96.8 (80-100) fL MCH 32.3 (25-34) pg MCHC 33.3 (32-36) g/dL RDW Std Deviation 48.7 H (36.4-46.3) fL RDW Coeff of Baljeet 13.7 (11.5-14.5) % Plt Count 357 (130-400) K/uL MPV 10.2 (7.4-10.4) fL Immature Gran % (Auto) 0.7 % Neut % (Auto) 84.1 % Lymph % (Auto) 8.1 % Hays % (Auto) 6.9 % Eos % (Auto) 0.1 % Baso % (Auto) 0.1 % Neut # (Auto) 12.49 H (1.4-6.5) K/uL Lymph # (Auto) 1.20 (1.2-3.4) K/uL Hays # (Auto) 1.03 H (0.11-0.59) K/uL Eos # (Auto) 0.01 (0-0.5) K/uL Baso # (Auto) 0.01 (0-0.2) K/uL Immature Gran # (Auto) 0.10 H (0.00-0.02) K/uL Polychromasia 1+ POC Sodium (135-144) mmol/L Sodium 134 L (136-145) mmol/L POC Potassium (3.3-5.0) mmol/L Potassium 3.6 (3.5-5.1) mmol/L POC Chloride (101-112) mmol/L Chloride 101 (98-107) mmol/L Carbon Dioxide 28 (21-32) mmol/L POC Total CO2 (24-31) mmol/L Anion Gap 5.0 (3-11) POC Anion Gap (16-25) mmol/L POC BUN (7-18) mg/dl BUN 11 (7-18) mg/dl Creatinine 0.95 (0.6-1.2) mg/dl POC Creatinine (0.6-1.3) mg/dl Est Cr Clr Drug Dosing 72.7 ml/min Est GFR ( Amer) 83.8 ml/min Est GFR (Non-Af Amer) 72.3 ml/min BUN/Creatinine Ratio 11.1 (10-20) Glucose 97 (70-99) mg/dl POC Glucose (other) (70-99) mg/dl Calcium 9.2 (8.5-10.1) mg/dl POC Ioniz Calcium Anuel (1.12-1.32) mmol/l Magnesium (1.8-2.4) mg/dl Total Bilirubin 0.5 (0.2-1) mg/dl AST 15 (15-37) U/L ALT 23 (12-78) U/L Alkaline Phosphatase 105 (45-117) U/L Troponin I < 0.015 (0-0.045) ng/ml Total Protein 8.8 H (6.4-8.2) gm/dl Albumin 3.4 (3.4-5.0) gm/dl Globulin 5.4 H (2.5-4.0) gm/dl Albumin/Globulin Ratio 0.6 L (0.9-2) Lipase 126 (73-393) U/L HCG, Qual Positive (Negative) HCG, Quant mIU/ml Urine Color Urine Appearance (Clear) Urine pH (4.5-7.5) Ur Specific Hyde (1.000-1.030) Urine Protein (Negative) Urine Glucose (UA) (Negative) Urine Ketones (Negative) Urine Blood (Negative) Urine Nitrite (Negative) Urine Bilirubin (Negative) Urine Urobilinogen (Negative) Ur Leukocyte Esterase (Negative) Urine WBC (Auto) (0-5) /hpf Urine RBC (Auto) (0-4) /hpf U Hyaline Cast (Auto) (0-5) /lpf U Epithel Cells (Auto) (0-5) /lpf Urine Bacteria (Auto) (Negative) Granular Casts (0) /lpf COVID-19 Eval Order SARS-CoV-2 (PCR) (Negative) 07/03/21 07/03/21 07/04/21 Range/Units Unknown Unknown 05:57 WBC 12.77 H (4.8-10.8) K/uL RBC 3.57 L (4.2-5.4) M/uL Hgb 11.3 L D (12.0-16.0) g/dL POC Hgb (12.0-16.0) g/dl Hct 35.0 L (37-47) % POC Hct (37-47) % MCV 98.0 (80-100) fL MCH 31.7 (25-34) pg MCHC 32.3 (32-36) g/dL RDW Std Deviation 48.6 H (36.4-46.3) fL RDW Coeff of Baljeet 13.5 (11.5-14.5) % Plt Count 267 (130-400) K/uL MPV 9.7 (7.4-10.4) fL Immature Gran % (Auto) 0.3 % Neut % (Auto) 79.2 % Lymph % (Auto) 9.7 % Hays % (Auto) 10.2 % Eos % (Auto) 0.5 % Baso % (Auto) 0.1 % Neut # (Auto) 10.12 H (1.4-6.5) K/uL Lymph # (Auto) 1.24 (1.2-3.4) K/uL Hays # (Auto) 1.30 H (0.11-0.59) K/uL Eos # (Auto) 0.06 (0-0.5) K/uL Baso # (Auto) 0.01 (0-0.2) K/uL Immature Gran # (Auto) 0.04 H (0.00-0.02) K/uL Polychromasia POC Sodium (135-144) mmol/L Sodium (136-145) mmol/L POC Potassium (3.3-5.0) mmol/L Potassium (3.5-5.1) mmol/L POC Chloride (101-112) mmol/L Chloride (98-107) mmol/L Carbon Dioxide (21-32) mmol/L POC Total CO2 (24-31) mmol/L Anion Gap (3-11) POC Anion Gap (16-25) mmol/L POC BUN (7-18) mg/dl BUN (7-18) mg/dl Creatinine (0.6-1.2) mg/dl POC Creatinine (0.6-1.3) mg/dl Est Cr Clr Drug Dosing ml/min Est GFR ( Amer) ml/min Est GFR (Non-Af Amer) ml/min BUN/Creatinine Ratio (10-20) Glucose (70-99) mg/dl POC Glucose (other) (70-99) mg/dl Calcium (8.5-10.1) mg/dl POC Ioniz Calcium Anuel (1.12-1.32) mmol/l Magnesium (1.8-2.4) mg/dl Total Bilirubin (0.2-1) mg/dl AST (15-37) U/L ALT (12-78) U/L Alkaline Phosphatase (45-117) U/L Troponin I (0-0.045) ng/ml Total Protein (6.4-8.2) gm/dl Albumin (3.4-5.0) gm/dl Globulin (2.5-4.0) gm/dl Albumin/Globulin Ratio (0.9-2) Lipase (73-393) U/L HCG, Qual (Negative) HCG, Quant 4 mIU/ml Urine Color Dark Yellow Urine Appearance Cloudy A (Clear) Urine pH 5.5 (4.5-7.5) Ur Specific Hyde 1.031 H (1.000-1.030) Urine Protein 3+ H (Negative) Urine Glucose (UA) Negative (Negative) Urine Ketones Trace H (Negative) Urine Blood 1+ H (Negative) Urine Nitrite Positive A (Negative) Urine Bilirubin 1+ H (Negative) Urine Urobilinogen Negative (Negative) Ur Leukocyte Esterase Trace H (Negative) Urine WBC (Auto) 10-30 H (0-5) /hpf Urine RBC (Auto) 0-4 (0-4) /hpf U Hyaline Cast (Auto) 10-30 H (0-5) /lpf U Epithel Cells (Auto) >30 H (0-5) /lpf Urine Bacteria (Auto) 4+ H (Negative) Granular Casts 1-5 H (0) /lpf COVID-19 Eval Order SARS-CoV-2 (PCR) (Negative) 07/04/21 07/04/21 Range/Units 05:57 05:57 WBC (4.8-10.8) K/uL RBC (4.2-5.4) M/uL Hgb (12.0-16.0) g/dL POC Hgb (12.0-16.0) g/dl Hct (37-47) % POC Hct (37-47) % MCV (80-100) fL MCH (25-34) pg MCHC (32-36) g/dL RDW Std Deviation (36.4-46.3) fL RDW Coeff of Baljeet (11.5-14.5) % Plt Count (130-400) K/uL MPV (7.4-10.4) fL Immature Gran % (Auto) % Neut % (Auto) % Lymph % (Auto) % Hays % (Auto) % Eos % (Auto) % Baso % (Auto) % Neut # (Auto) (1.4-6.5) K/uL Lymph # (Auto) (1.2-3.4) K/uL Hays # (Auto) (0.11-0.59) K/uL Eos # (Auto) (0-0.5) K/uL Baso # (Auto) (0-0.2) K/uL Immature Gran # (Auto) (0.00-0.02) K/uL Polychromasia POC Sodium (135-144) mmol/L Sodium 141 D (136-145) mmol/L POC Potassium (3.3-5.0) mmol/L Potassium 3.4 L (3.5-5.1) mmol/L POC Chloride (101-112) mmol/L Chloride 108 H (98-107) mmol/L Carbon Dioxide 25 (21-32) mmol/L POC Total CO2 (24-31) mmol/L Anion Gap 7.0 (3-11) POC Anion Gap (16-25) mmol/L POC BUN (7-18) mg/dl BUN 8 (7-18) mg/dl Creatinine 0.75 (0.6-1.2) mg/dl POC Creatinine (0.6-1.3) mg/dl Est Cr Clr Drug Dosing 92.1 ml/min Est GFR ( Amer) 111.6 ml/min Est GFR (Non-Af Amer) 96.3 ml/min BUN/Creatinine Ratio 10.5 (10-20) Glucose 98 (70-99) mg/dl POC Glucose (other) (70-99) mg/dl Calcium 8.1 L (8.5-10.1) mg/dl POC Ioniz Calcium Anuel (1.12-1.32) mmol/l Magnesium 1.6 L (1.8-2.4) mg/dl Total Bilirubin 0.4 (0.2-1) mg/dl AST 10 L (15-37) U/L ALT 15 (12-78) U/L Alkaline Phosphatase 73 (45-117) U/L Troponin I (0-0.045) ng/ml Total Protein 5.9 L D (6.4-8.2) gm/dl Albumin 2.2 L (3.4-5.0) gm/dl Globulin 3.7 (2.5-4.0) gm/dl Albumin/Globulin Ratio 0.6 L (0.9-2) Lipase (73-393) U/L HCG, Qual (Negative) HCG, Quant mIU/ml Urine Color Urine Appearance (Clear) Urine pH (4.5-7.5) Ur Specific Hyde (1.000-1.030) Urine Protein (Negative) Urine Glucose (UA) (Negative) Urine Ketones (Negative) Urine Blood (Negative) Urine Nitrite (Negative) Urine Bilirubin (Negative) Urine Urobilinogen (Negative) Ur Leukocyte Esterase (Negative) Urine WBC (Auto) (0-5) /hpf Urine RBC (Auto) (0-4) /hpf U Hyaline Cast (Auto) (0-5) /lpf U Epithel Cells (Auto) (0-5) /lpf Urine Bacteria (Auto) (Negative) Granular Casts (0) /lpf COVID-19 Eval Order SARS-CoV-2 (PCR) (Negative) Plan for IV antibiotics for 48 hours and DC home with oral antibiotics and follow-up ultrasound in the office. All Questions were answered Results & Data ([facility]) Vital Signs (Past 12 Hours) Vital Signs Temp Pulse Pulse Resp BP Pulse Ox 07/04/21 08:00 37.2 C 79 18 151/85 H 99 07/04/21 03:25 37.0 C 93 H 18 150/81 H 96 07/03/21 23:30 37.3 C 92 H 18 157/78 H 98
[2021-07-04] MEDS: CLINDAMYCIN 900 MG in DEXTROSE 5% 50 ML IV SCH ×2 (13:05→20:14)
[2021-07-04] MEDS ORDERED: GENTAMICIN CONSULT ACTIVE PRN (13:07)
[2021-07-04] MEDS ORDERED: GENTAMICIN SULFATE 500 MG in DEXTROSE 5% 100 ML IV SCH (14:00)
[2021-07-04] MEDS ORDERED: GENTAMICIN SULFATE 120 MG in DEXTROSE 5% 100 ML IV SCH (14:00)
--- NOTE | 2021-07-04 14:15 | Pharmacy Report ---
Pharmacy Abx Dose Short Note - Date of Service July 04, 2021 - Assessment & Plan Assessment 46 year old F receiving empiric cefoxitin, clindamycin, and gentamicin for tuboovarian abscess, UTI and possible diverticulitis * preliminary urine culture growing gram negative bacilli - will re-evaluate antibiotic regimen once pathogen has been ID'ed Plan Gentamicin * Patient meets criteria for the Ozzie extended interval dosing nomogram * Start gentamicin 500 mg (7 mg/kg) IV every 24 hours * Random level ordered for 07/04 @ 2100 Clindamycin 900 mg IV q8h- not pharm consult Cefoxitin 2000 mg IV q6h - not pharm consult Pharmacy will continue to follow and will adjust dose/frequency as necessary. Thank you.
[2021-07-04] MEDS: IBUPROFEN 600 MG TAB PO PRN (20:13)
[2021-07-05] MEDS: cefOXitin 2,000 MG/60 ML BAG IV SCH ×2 (03:05→08:42)
[2021-07-05] MEDS: IBUPROFEN 600 MG TAB PO PRN ×2 (05:10→11:23)
[2021-07-05] MEDS: CLINDAMYCIN 900 MG in DEXTROSE 5% 50 ML IV SCH (05:11)
[2021-07-05 06:19] LABS: Basophils # (auto) 0.02 K/uL (0-0.2); Basophils % (auto) 0.2 %; Eosinophils # (auto) 0.11 K/uL (0-0.5); Eosinophils % (auto) 0.9 %; Hematocrit (blood only) 36.4 % (37-47); Hemoglobin 11.8 g/dL (12.0-16.0); Immature Granulocytes # (auto) 0.12 K/uL (0.00-0.02); Immature Granulocytes % (auto) 0.9 %; Lymphocytes # (auto) 1.41 K/uL (1.2-3.4); Lymphocytes % (auto) 11.1 %; Mean Corpuscular Hgb Conc 32.4 g/dL (32-36); Mean Corpuscular Volume 95.5 fL (80-100); Mean Platelet Volume 9.8 fL (7.4-10.4); Monocytes # (auto) 1.37 K/uL (0.11-0.59); Monocytes % (auto) 10.7 %; Neutrophils # (auto) 9.73 K/uL (1.4-6.5); Neutrophils % (auto) 76.2 %; Platelet Count 310 K/uL (130-400); RDW Coefficient of Variation 13.8 % (11.5-14.5); RDW Standard Deviation 48.6 fL (36.4-46.3); Red Blood Count 3.81 M/uL (4.2-5.4); White Blood Count 12.76 K/uL (4.8-10.8)
[2021-07-05 07:01] LABS: BUN Creatinine Ratio 9.3 (10-20); Calcium 8.4 mg/dl (8.5-10.1); Est GFR (African American) 117.2 ml/min; Est GFR (Non-African American) 101.1 ml/min; Magnesium 2.1 mg/dl (1.8-2.4)
--- NOTE | 2021-07-05 07:27 | Pharmacy Report ---
Pharmacy Abx Dose Short Note - Date of Service July 05, 2021 - Assessment & Plan Assessment 46 year old F receiving Gentamicin for treatment of Tubo-ovarian abscess, UTI, and possible diverticulitis Day # 2 of antimicrobial therapy. Urine culture grew pansensitive e. coli. Plan Gentamicin * Random level drawn 7 hrs after infusion at 2100 07/04/21 was 2.8. Per Deputy Nomogram, this indicates 24 hr dosing is appropriate * Continue dose of 500 mg IV every 24 hours * Repeat level will be obtained with extended duration of treatment or change in clinical status Clindamycin 900mg IV q8h - not a pharmacy consult Cefoxitin 2g IV q6h - not a pharmacy consult Pharmacy will continue to follow and will adjust dose/frequency as necessary. Thank you.
[2021-07-05] MEDS: ACETAMINOPHEN 325 MG TAB PO PRN ×2 (07:48→15:04)
[2021-07-05] MEDS: LACTATED RINGER'S 1,000 ML IV SCH (07:49)
[2021-07-05] MEDS: NIFEdipine EXTENDED REL 30 MG TABCR PO SCH (08:57)
[2021-07-05] MEDS: PANTOprazole 40 MG TAB PO SCH (08:57)
--- NOTE | 2021-07-05 09:32 | Hospitalist Progress Note ---
Date of Service July 05, 2021 Assessment & Plan (1) TOA (tubo-ovarian abscess): Plan: CT of the abdomen completed showed a possible tubo-ovarian abscess Pelvic ultrasound without intrauterine gestational sac. It does show a complex multiloculated collection within the superior right adnexa, with the largest component measuring 6 x 4 cm, suggestive of tubo-ovarian abscess CT abd also with diverticulosis of sigmoid colon colon is seen with mild surrounding fat stranding which might represent reactive changes due to close proximity a dose of pelvic inflammatory process versus developing diverticulitis which is less likely Afebrile, WBC steady at 12.7, preliminary blood cultures without growth Currently on IV clindamycin and gentamicin, working with pharmacy to transition to PO regimen - planning for Levaquin and Flagyl upon discharge OB follow up for TOA, instructed to follow up with PCP for diverticulosis for repeat CT scan if symptoms persists (2) Positive test: Plan: Initial hcg is positive, hcg quant of 3 Pelvic ultrasound without intrauterine gestational sac. It does show a complex multiloculated collection within the superior right adnexa, with the largest c omponent measuring 6 x 4 cm, suggestive of tubo-ovarian abscess Per primary service (3) Hypertension: Plan: BP initially elevated yesterday, now normotensive Nifedipine 30 mg QAM was started yesterday, plan to continue (4) Hypomagnesemia: Plan: Initial mag, 1.6, replaced and now within normal range at 2.1 (5) Hypokalemia: Plan: K 3.4 replaced, now within normal range at 4.1 Follow daily BMP for electrolytes (6) UTI (urinary tract infection): Plan: Growing smith sensitive E coli on urine culture, asymptomatic Currently on IV cefoxitin, will transition to PO abx upon discharge DVT PPx: teds, scds Dispo: Per primary service Patient seen in collaboration with Dr. Bonilla. Please see addendum. Thank you for this consultation. We will follow the patient with you during their hospital stay. You can reach a [facility]05 via pager @ [place] Text role. Admission and Anticipated Discharge Date Admission Date: July 03, 2021 Supervising Physician Co-Signing Physician Notes Patient is seen and examined at bedside. States feeling much better today. Abdominal pain much improved. Denies nausea, vomiting, chest pain, dyspnea. Loose bowel movement today. Tolerating diet. On exam patient is moderately built and nourished, no apparent distress, normocephalic atraumatic, normal breath sounds, clear to auscultation, S1-S2, no murmur, no pedal edema, abdomen soft, non tender, no guarding or rigidity, normal bowel sounds, alert, awake, oriented, grossly nonfocal deficits. Tubo-ovarian abscess management as per primary team. UTI: Urine culture growing pansensitive E. coli. IV cefoxitin transition to Levaquin. Hypokalemia, hypomagnesemia--resolved. Replace electrolytes as needed. Hypertension--continue nifedipine. BP better today. Suspected diverticulitis on CT: Continue Levaquin, Flagyl. Advised to get a repeat CT abdomen in 1 to 2 weeks if no resolution of symptoms. Patient's care is coordinated with Sherri Torres PA-C. Please refer to the documentation above for details of patient's presentation and for discussion of other issues. Subjective Patient seen and examined in 479-2. Feeling well today. Lower abdominal pain/suprapubic tenderness has decreased but is still there at a 2/10. No fever chills, lightheadedness, headache, CP, SOB, nausea, vomiting, dysuria or constipation. Stool is looser than normal but no blood. Tolerating diet without issue. Review of Systems Review of Systems: At least ten systems reviewed and negative except as noted in the HPI. Physical Exam Physical Exam: General Appearance: WD/WN, vitals as above, NAD, sitting up in bed, pleasant, conversing easily Head: normocephalic, atraumatic Eyes: normal inspection, PERRL, conjunctivae normal, anicteric sclerae ENT: external ear and nose normal, oropharynx normal Neck: normal visual inspection, trachea midline, no thyromegaly Respiratory: normal respiratory effort, lungs clear to auscultation, no wheeze, rales, rhonchi. No accessory muscle use Cardiovascular: regular rate, rhythm, no murmur, normal peripheral pulses, no BLE edema. Vessels: no JVD Chest: normal inspection of chest Abdomen/GI: normal bowel sounds, soft, mild bilateral suprapubic TTP, no hepatosplenomegaly Extremities/Musculoskeletal: no cyanosis or clubbing, extremities motor strength 5/5 Neurologic: PERRL, CN's II-XI intact bilaterally and moves all extremities Psychiatric: A+Ox3, euthymic affect Skin: no rashes, normal color, warm/dry Results & Data Results & Data ([facility]) Vital Signs (Past 12 Hours) Vital Signs Temp Pulse Resp BP Pulse Ox 07/05/21 07:50 37 C 83 18 131/76 96 07/04/21 23:30 36.8 C 76 16 119/72 95 Laboratory Results Short CBC 07/05/21 Range/Units 05:37 WBC 12.76 H (4.8-10.8) K/uL Hgb 11.8 L (12.0-16.0) g/dL Hct 36.4 L (37-47) % Plt Count 310 (130-400) K/uL BMP 07/05/21 05:37 Sodium 137 Potassium 4.0 D Chloride 107 Carbon Dioxide 25 BUN 7 Creatinine 0.72 Glucose 122 H Calcium 8.4 L Diagnostic Findings Abdomen/Pelvis CT 07/03/21 14:38 CT abd pelvis IV con only CLINICAL HISTORY: fever abd pain COMPARISON STUDY: None. TECHNIQUE: A dose lowering technique was utilized adhering to the principles of ALARA. CT DOSE: 584.97 mGycm FINDINGS: Lower chest: Limited evaluation of lung bases shows no evidence of acute abnormalities.. Liver: The contrast-enhanced liver is normal in size, contour, and attenuation. There is no intrahepatic biliary ductal dilatation. The hepatic veins and portal veins are patent. Focal calcification is seen within right lobe of the liver. Gallbladder: Unremarkable. Spleen: Normal in size and attenuation. Pancreas: Unremarkable. Adrenal glands: Unremarkable. Kidneys: There is symmetric renal cortical enhancement. The kidneys are normal in size without hydronephrosis. Pelvic viscera: Urinary bladder is partially decompressed which limits evaluation. Uterine cavity is mildly enlarged. Tubular hypoattenuating lesions with mucosal thickening, septation, enhancement and surrounding edema is seen. Small amount of free fluid is seen within cul-de-sac. Bowel: Bowel loops are nondilated. Appendix is not well seen. Loops of large bowel are fluid-filled which could be seen in diarrheal state. Mild dive rticulosis of sigmoid colon is seen which is associated with mild surrounding fat stranding which might represent developing diverticulitis or reactive changes due to adjacent inflammatory pelvic process. Peritoneum: There is no intraperitoneal free air or abdominal ascites. Vasculature: The abdominal aorta is normal in course and caliber. Adenopathy: None. Skeletal structures: Minimal degenerative changes of the spine. IMPRESSION: 1. Tubular hypoattenuating lesions with septation, mucosal enhancement and thickening as well as surrounding edema could represent pyosalpinx/tubo-ovarian abscess. Further [employer] evaluation and possible pelvic ultrasound might be considered . 2. Diverticulosis of sigmoid colon colon is seen with mild surrounding fat stranding which might represent reactive changes due to close proximity a dose of pelvic inflammatory process versus developing diverticulitis which is less likely. 3. The rest of findings as above. ACT 112: Negative or not required by law. The above report was generated using voice recognition software. It may contain grammatical, syntax or spelling errors. Electronically signed by: Neela Barrera DO 07/03/2021 4:07 PM Transvaginal US 07/03/21 18:15 PELVIC ULTRASOUND CLINICAL HISTORY: suspected TOA with +ve test COMPARISON STUDY: CT of the abdomen and pelvis performed earlier today. TECHNIQUE: Transabdominal and transvaginal sonography of the pelvis was performed. FINDINGS: Uterus measures 9.7 x 4.3 x 5.2 cm. Endometrium measures 4 mm in thickness. No intrauterine gestational sac is identified. There is a small amount of fluid within the pelvis. Left ovary is sonographically normal on transabdominal exam, measuring 2.3 x 1.7 x 2.5 cm. The right ovary is partially obscured, measuring approximately 2.9 x 2.1 x 2.3 cm. Color flow is identified within each ovary. Note is made of a complex superior right adnexal fluid collection, adjacent to the ovary and superior aspect of the uterus. This extends to the midline. This corresponds to the fluid collection shown on CT performed earlier today. Measurements are difficult to obtain by sonography perrin isabell this measures approximately 6 x 4 cm. This contains hypoechoic material. IMPRESSION: 1. Complex multiloculated collection within the superior right adnexa, adjacent to the right ovary and superior aspect of the uterus extending to the midline. This corresponds to the collection shown on CT. Measurements difficult to obtain by sonography however the largest component measures approximately 6 x 4 cm. This is suggestive of a tubo-ovarian abscess. 2. No intrauterine gestational sac identified. This could be correlated with beta hCG levels. 3. Small amount of fluid within the pelvis. ACT 112: Negative or not required by law. Electronically signed by: Dayron Garcia M.D. 07/03/2021 7:48 PM Pelvis Ultrasound 07/03/21 18:16 PELVIC ULTRASOUND CLINICAL HISTORY: suspected TOA with +ve test COMPARISON STUDY: CT of the abdomen and pelvis performed earlier today. TECHNIQUE: Transabdominal and transvaginal sonography of the pelvis was performed. FINDINGS: Uterus measures 9.7 x 4.3 x 5.2 cm. Endometrium measures 4 mm in thickness. No intrauterine gestational sac is identified. There is a small amount of fluid within the pelvis. Left ovary is sonographically normal on transabdominal exam, measuring 2.3 x 1.7 x 2.5 cm. The right ovary is partially obscured, measuring approximately 2.9 x 2.1 x 2.3 cm. Color flow is identified within each ovary. Note is made of a complex superior right adnexal fluid collection, adjacent to the ovary and superior aspect of the uterus. This extends to the midline. This corresponds to the fluid collection shown on CT performed earlier today. Measurements are difficult to obtain by sonography however this measures approximately 6 x 4 cm. This contains hypoechoic material.
--- NOTE | 2021-07-05 11:13 | Gynecologic Progress Note ---
Date of Service July 05, 2021 Assessment & Plan (1) TOA (tubo-ovarian abscess): Plan: antibiotics switched to Levaquin and Flagyl for better coverage will check CBC in AM and tent d/c in AM if remains afebrile Admission and Anticipated Discharge Date Admission Date: July 03, 2021 Subjective Hospital Day number 2 doing well pain decreased this AM tolerating diet out of bed passing gas Physical Exam Constitutional: WD/WN, vitals as above comfortable Gastrointestinal (Abdomen): normal bowel sounds, soft, nontender, no hepatosplenomegaly Musculoskeletal: Extremities: extremities normal to inspection no edema neg Mega's Skin: no rashes, warm and dry Neurologic: patellar DTR's 2+ bilat, sensation intact Results & Data ([facility]) Vital Signs (Past 12 Hours) Vital Signs Temp Pulse Resp BP Pulse Ox 07/05/21 07:50 37 C 83 18 131/76 96 07/04/21 23:30 36.8 C 76 16 119/72 95 Laboratory Results 07/03/21 07/03/21 07/03/21 15:04 18:30 18:30 WBC RBC Hgb POC Hgb 15.0 Hct POC Hct 44 MCV MCH MCHC RDW Std Deviation RDW Coeff of Baljeet Plt Count MPV Immature Gran % (Auto) Neut % (Auto) Lymph % (Auto) [place] % (Auto) Eos % (Auto) Baso % (Auto) Neut # (Auto) Lymph # (Auto) [place] # (Auto) Eos # (Auto) Baso # (Auto) Immature Gran # (Auto) Polychromasia POC Sodium 137 Sodium POC Potassium 3.7 Potassium POC Chloride 98 L Chloride Carbon Dioxide POC Total CO2 28 Anion Gap POC Anion Gap 16.0 POC BUN 12 BUN Creatinine POC Creatinine 0.8 Est Cr Clr Drug Dosing Est GFR ( Amer) Est GFR (Non-Af Amer) BUN/Creatinine Ratio Glucose POC Glucose (other) 108 H Calcium POC Ioniz Calcium Anuel 1.17 Magnesium Total Bilirubin AST ALT Alkaline Phosphatase Troponin I Total Protein Albumin Globulin Albumin/Globulin Ratio Lipase HCG, Qual HCG, Quant Specimen Hemolysis Urine Color Urine Appearance Urine pH Ur Specific [place] Urine Protein Urine Glucose (UA) Urine Ketones Urine Blood Urine Nitrite Urine Bilirubin Urine Urobilinogen Ur Leukocyte Esterase Urine WBC (Auto) Urine RBC (Auto) U Hyaline Cast (Auto) U Epithel Cells (Auto) Urine Bacteria (Auto) Granular Casts Random Gentamicin COVID-19 Eval Order Covid19 at [facility] SARS-CoV-2 (PCR) NEGATIVE 07/03/21 07/03/21 07/03/21 Unknown Unknown Unknown WBC 14.84 H RBC 4.43 Hgb 14.3 POC Hgb Hct 42.9 POC Hct MCV 96.8 MCH 32.3 MCHC 33.3 RDW Std Deviation 48.7 H RDW Coeff of Baljeet 13.7 Plt Count 357 MPV 10.2 Immature Gran % (Auto) 0.7 Neut % (Auto) 84.1 Lymph % (Auto) 8.1 [place] % (Auto) 6.9 Eos % (Auto) 0.1 Baso % (Auto) 0.1 Neut # (Auto) 12.49 H Lymph # (Auto) 1.20 [place] # (Auto) 1.03 H Eos # (Auto) 0.01 Baso # (Auto) 0.01 Immature Gran # (Auto) 0.10 H Polychromasia 1+ POC Sodium Sodium 134 L POC Potassium Potassium 3.6 POC Chloride Chloride 101 Carbon Dioxide 28 POC Total CO2 Anion Gap 5.0 POC Anion Gap POC BUN BUN 11 Creatinine 0.95 POC Creatinine Est Cr Clr Drug Dosing 72.7 Est GFR ( Amer) 83.8 Est GFR (Non-Af Amer) 72.3 BUN/Creatinine Ratio 11.1 Glucose 97 POC Glucose (other) Calcium 9.2 POC Ioniz Calcium Anuel Magnesium Total Bilirubin 0.5 AST 15 ALT 23 Alkaline Phosphatase 105 Troponin I < 0.015 Total Protein 8.8 H Albumin 3.4 Globulin 5.4 H Albumin/Globulin Ratio 0.6 L Lipase 126 HCG, Qual Positive HCG, Quant Specimen Hemolysis Urine Color Urine Appearance Urine pH Ur Specific [place] Urine Protein Urine Glucose (UA) Urine Ketones Urine Blood Urine Nitrite Urine Bilirubin Urine Urobilinogen Ur Leukocyte Esterase Urine WBC (Auto) Urine RBC (Auto) U Hyaline Cast (Auto) U Epithel Cells (Auto) Urine Bacteria (Auto) Granular Casts Random Gentamicin COVID-19 Eval Order SARS-CoV-2 (PCR) 07/03/21 07/03/21 07/04/21 Unknown Unknown 05:57 WBC 12.77 H RBC 3.57 L Hgb 11.3 L D POC Hgb Hct 35.0 L POC Hct MCV 98.0 MCH 31.7 MCHC 32.3 RDW Std Deviation 48.6 H RDW Coeff of Baljeet 13.5 Plt Count 267 MPV 9.7 Immature Gran % (Auto) 0.3 Neut % (Auto) 79.2 Lymph % (Auto) 9.7 [place] % (Auto) 10.2 Eos % (Auto) 0.5 Baso % (Auto) 0.1 Neut # (Auto) 10.12 H Lymph # (Auto) 1.24 [place] # (Auto) 1.30 H Eos # (Auto) 0.06 Baso # (Auto) 0.01 Immature Gran # (Auto) 0.04 H Polychromasia POC Sodium Sodium POC Potassium Potassium POC Chloride Chloride Carbon Dioxide POC Total CO2 Anion Gap POC Anion Gap POC BUN BUN Creatinine POC Creatinine Est Cr Clr Drug Dosing Est GFR ( Amer) Est GFR (Non-Af Amer) BUN/Creatinine Ratio Glucose POC Glucose (other) Calcium POC Ioniz Calcium Anuel Magnesium Total Bilirubin AST ALT Alkaline Phosphatase Troponin I Total Protein Albumin Globulin Albumin/Globulin Ratio Lipase HCG, Qual HCG, Quant 4 Specimen Hemolysis Urine Color Dark Yellow Urine Appearance Cloudy A Urine pH 5.5 Ur Specific [place] 1.031 H Urine Protein 3+ H Urine Glucose (UA) Negative Urine Ketones Trace H Urine Blood 1+ H Urine Nitrite Positive A Urine Bilirubin 1+ H Urine Urobilinogen Negative Ur Leukocyte Esterase Trace H Urine WBC (Auto) 10-30 H Urine RBC (Auto) 0-4 U Hyaline Cast (Auto) 10-30 H U Epithel Cells (Auto) >30 H Urine Bacteria (Auto) 4+ H Granular Casts 1-5 H Random Gentamicin COVID-19 Eval Order SARS-CoV-2 (PCR) 07/04/21 07/04/21 07/04/21 05:57 05:57 13:10 WBC RBC Hgb POC Hgb Hct POC Hct MCV MCH MCHC RDW Std Deviation RDW Coeff of Baljeet Plt Count MPV Immature Gran % (Auto) Neut % (Auto) Lymph % (Auto) [place] % (Auto) Eos % (Auto) Baso % (Auto) Neut # (Auto) Lymph # (Auto) [place] # (Auto) Eos # (Auto) Baso # (Auto) Immature Gran # (Auto) Polychromasia POC Sodium Sodium 141 D POC Potassium Potassium 3.4 L POC Chloride Chloride 108 H Carbon Dioxide 25 POC Total CO2 Anion Gap 7.0 POC Anion Gap POC BUN BUN 8 Creatinine 0.75 POC Creatinine Est Cr Clr Drug Dosing 92.1 Est GFR ( Amer) 111.6 Est GFR (Non-Af Amer) 96.3 BUN/Creatinine Ratio 10.5 Glucose 98 POC Glucose (other) Calcium 8.1 L POC Ioniz Calcium Anuel Magnesium 1.6 L Total Bilirubin 0.4 AST 10 L ALT 15 Alkaline Phosphatase 73 Troponin I Total Protein 5.9 L D Albumin 2.2 L Globulin 3.7 Albumin/Globulin Ratio 0.6 L Lipase HCG, Qual HCG, Quant 3 Specimen Hemolysis Urine Color Urine Appearance Urine pH Ur Specific [place] Urine Protein Urine Glucose (UA) Urine Ketones Urine Blood Urine Nitrite Urine Bilirubin Urine Urobilinogen Ur Leukocyte Esterase Urine WBC (Auto) Urine RBC (Auto) U Hyaline Cast (Auto) U Epithel Cells (Auto) Urine Bacteria (Auto) Granular Casts Random Gentamicin COVID-19 Eval Order SARS-CoV-2 (PCR) 07/04/21 07/05/21 07/05/21 20:46 05:37 05:37 WBC 12.76 H RBC 3.81 L Hgb 11.8 L POC Hgb Hct 36.4 L POC Hct MCV 95.5 MCH 31.0 MCHC 32.4 RDW Std Deviation 48.6 H RDW Coeff of Baljeet 13.8 Plt Count 310 MPV 9.8 Immature Gran % (Auto) 0.9 Neut % (Auto) 76.2 Lymph % (Auto) 11.1 [place] % (Auto) 10.7 Eos % (Auto) 0.9 Baso % (Auto) 0.2 Neut # (Auto) 9.73 H Lymph # (Auto) 1.41 [place] # (Auto) 1.37 H Eos # (Auto) 0.11 Baso # (Auto) 0.02 Immature Gran # (Auto) 0.12 H Polychromasia POC Sodium Sodium 137 POC Potassium Potassium 4.0 D POC Chloride Chloride 107 Carbon Dioxide 25 POC Total CO2 Anion Gap 5.0 POC Anion Gap POC BUN BUN 7 Creatinine 0.72 POC Creatinine Est Cr Clr Drug Dosing 96.0 Est GFR ( Amer) 117.2 Est GFR (Non-Af Amer) 101.1 BUN/Creatinine Ratio 9.3 L Glucose 122 H POC Glucose (other) Calcium 8.4 L POC Ioniz Calcium Anuel Magnesium 2.1 Total Bilirubin AST ALT Alkaline Phosphatase Troponin I Total Protein Albumin Globulin Albumin/Globulin Ratio Lipase HCG, Qual HCG, Quant Specimen Hemolysis Urine Color Urine Appearance Urine pH Ur Specific [place] Urine Protein Urine Glucose (UA) Urine Ketones Urine Blood Urine Nitrite Urine Bilirubin Urine Urobilinogen Ur Leukocyte Esterase Urine WBC (Auto) Urine RBC (Auto) U Hyaline Cast (Auto) U Epithel Cells (Auto) Urine Bacteria (Auto) Granular Casts Random Gentamicin 2.80 COVID-19 Eval Order SARS-CoV-2 (PCR) Diagnostic Findings blood cultures negative at 24 hours
[2021-07-05] MEDS: metroNIDAZOLE 500 MG/100 ML BAG IV SCH ×2 (11:17→19:36)
[2021-07-05] MEDS: levoFLOXacin/D5W 500 MG/100 ML BAG IV SCH (13:10)
[2021-07-05 16:21] LABS: Chlamydia Trach RNA NOT DETECTED (NOT DETECTED); GC (Neis gonorrhoeae) RNA NOT DETECTED (NOT DETECTED)
[2021-07-05] MEDS: ONDANSETRON INJ 2 MG/ML 2 ML VIAL IV PRN (18:06)
[2021-07-06] MEDS: LACTATED RINGER'S 1,000 ML IV SCH ×2 (00:50→16:50)
[2021-07-06] MEDS: IBUPROFEN 600 MG TAB PO PRN ×2 (01:32→12:07)
[2021-07-06] MEDS: metroNIDAZOLE 500 MG/100 ML BAG IV SCH ×3 (03:33→19:40)
[2021-07-06 06:24] LABS: Basophils # (auto) 0.01 K/uL (0-0.2); Basophils % (auto) 0.1 %; Eosinophils % (auto) 0.8 %; Hematocrit (blood only) 36.9 % (37-47); Hemoglobin 11.8 g/dL (12.0-16.0); Immature Granulocytes # (auto) 0.22 K/uL (0.00-0.02); Immature Granulocytes % (auto) 1.7 %; Lymphocytes % (auto) 10.7 %; Mean Corpuscular Hemoglobin 31.1 pg (25-34); Mean Corpuscular Volume 97.1 fL (80-100); Mean Platelet Volume 9.8 fL (7.4-10.4); Monocytes # (auto) 1.22 K/uL (0.11-0.59); Monocytes % (auto) 9.3 %; Neutrophils # (auto) 10.12 K/uL (1.4-6.5); Neutrophils % (auto) 77.4 %; Platelet Count 408 K/uL (130-400); RDW Coefficient of Variation 13.9 % (11.5-14.5); RDW Standard Deviation 48.8 fL (36.4-46.3); White Blood Count 13.07 K/uL (4.8-10.8)
[2021-07-06 06:51] LABS: Creatinine Clr Calc Pharmacy 101.6 ml/min; Est GFR (African American) 122.4 ml/min; Est GFR (Non-African American) 105.6 ml/min; Magnesium 1.8 mg/dl (1.8-2.4); Potassium 3.8 mmol/L (3.5-5.1)
[2021-07-06] MEDS: PANTOprazole 40 MG TAB PO SCH (09:00)
[2021-07-06] MEDS: NIFEdipine EXTENDED REL 30 MG TABCR PO SCH (09:00)
--- NOTE | 2021-07-06 11:55 | Gynecologic Progress Note ---
Date of Service July 06, 2021 Assessment & Plan Admission and Anticipated Discharge Date Admission Date: July 03, 2021 Subjective Late entry from 9:30 AM, Patient is seen and examined, Patient feels well, gets pain on the right lower quadrant off and on and takes Motrin and Tylenol for it. She started to have nausea, abdominal distention and diarrhea yesterday. She was constipated about 10 days when she presented to ER on July 03. Diarrhea has been new. She was switched to clear diet yesterday and antibiotics were changed to Levaquin and Flagyl by medicine. She denies vomiting and has been tolerating clear diet. She denies fever, chills, problem with urination. I contacted medical team and they are doing stool culture for C. difficile. Vital Signs Temp Pulse Resp BP Pulse Ox 07/06/21 07:50 36.8 C 71 18 127/83 99 07/06/21 03:40 36.8 C 76 18 118/72 98 07/05/21 23:45 37.6 C H 96 H 20 122/76 97 07/05/21 20:30 37.3 C 85 20 130/85 97 Intake and Output 07/05/21 07/06/21 07/06/21 22:59 06:59 14:59 Intake Total 100 / 1900.00 1150.00 / 1900.00 Balance 100 / 1175.00 1150.00 / 1175.00 Intake: IV 100 / 1900.00 1150.00 / 1900.00 Lactated Ringer's 1,000 ml @ 75 1150.00 / 1540.00 mls/hr IV .[id number] [facility] Rx#: [id number] metroNIDAZOLE 500 mg In 100 ml 100 / 200 @ 100 mls/hr IV Q8H [facility] Rx#: [id number] Lab Results 07/03/21 07/03/21 07/03/21 Range/Units 15:04 18:30 18:30 WBC (4.8-10.8) K/uL RBC (4.2-5.4) M/uL Hgb (12.0-16.0) g/dL POC Hgb 15.0 (12.0-16.0) g/dl Hct (37-47) % POC Hct 44 (37-47) % MCV (80-100) fL MCH (25-34) pg MCHC (32-36) g/dL RDW Std Deviation (36.4-46.3) fL RDW Coeff of Baljeet (11.5-14.5) % Plt Count (130-400) K/uL MPV (7.4-10.4) fL Immature Gran % (Auto) % Neut % (Auto) % Lymph % (Auto) % [place] % (Auto) % Eos % (Auto) % Baso % (Auto) % Neut # (Auto) (1.4-6.5) K/uL Lymph # (Auto) (1.2-3.4) K/uL [place] # (Auto) (0.11-0.59) K/uL Eos # (Auto) (0-0.5) K/uL Baso # (Auto) (0-0.2) K/uL Immature Gran # (Auto) (0.00-0.02) K/uL Polychromasia POC Sodium 137 (135-144) mmol/L Sodium (136-145) mmol/L POC Potassium 3.7 (3.3-5.0) mmol/L Potassium (3.5-5.1) mmol/L POC Chloride 98 L (101-112) mmol/L Chloride (98-107) mmol/L Carbon Dioxide (21-32) mmol/L POC Total CO2 28 (24-31) mmol/L Anion Gap (3-11) POC Anion Gap 16.0 (16-25) mmol/L POC BUN 12 (7-18) mg/dl BUN (7-18) mg/dl Creatinine (0.6-1.2) mg/dl POC Creatinine 0.8 (0.6-1.3) mg/dl Est Cr Clr Drug Dosing ml/min Est GFR ( Amer) ml/min Est GFR (Non-Af Amer) ml/min BUN/Creatinine Ratio (10-20) Glucose (70-99) mg/dl POC Glucose (other) 108 H (70-99) mg/dl Calcium (8.5-10.1) mg/dl POC Ioniz Calcium Anuel 1.17 (1.12-1.32) mmol/l Magnesium (1.8-2.4) mg/dl Total Bilirubin (0.2-1) mg/dl AST (15-37) U/L ALT (12-78) U/L Alkaline Phosphatase (45-117) U/L Troponin I (0-0.045) ng/ml Total Protein (6.4-8.2) gm/dl Albumin (3.4-5.0) gm/dl Globulin (2.5-4.0) gm/dl Albumin/Globulin Ratio (0.9-2) Lipase (73-393) U/L HCG, Qual (Negative) HCG, Quant mIU/ml Specimen Hemolysis Urine Color Urine Appearance (Clear) Urine pH (4.5-7.5) Ur Specific Nelson (1.000-1.030) Urine Protein (Negative) Urine Glucose (UA) (Negative) Urine Ketones (Negative) Urine Blood (Negative) Urine Nitrite (Negative) Urine Bilirubin (Negative) Urine Urobilinogen (Negative) Ur Leukocyte Esterase (Negative) Urine WBC (Auto) (0-5) /hpf Urine RBC (Auto) (0-4) /hpf U Hyaline Cast (Auto) (0-5) /lpf U Epithel Cells (Auto) (0-5) /lpf Urine Bacteria (Auto) (Negative) Granular Casts (0) /lpf Random Gentamicin mcg/ml C.trachomatis RNA (NOT DETECTED) COVID-19 Eval Order Covid19 at [facility] SARS-CoV-2 (PCR) NEGATIVE (Negative) N.gonorrhoeae RNA (NOT DETECTED) Reference Lab Comment 07/03/21 07/03/21 07/03/21 Range/Units Unknown Unknown Unknown WBC 14.84 H (4.8-10.8) K/uL RBC 4.43 (4.2-5.4) M/uL Hgb 14.3 (12.0-16.0) g/dL POC Hgb (12.0-16.0) g/dl Hct 42.9 (37-47) % POC Hct (37-47) % MCV 96.8 (80-100) fL MCH 32.3 (25-34) pg MCHC 33.3 (32-36) g/dL RDW Std Deviation 48.7 H (36.4-46.3) fL RDW Coeff of Baljeet 13.7 (11.5-14.5) % Plt Count 357 (130-400) K/uL MPV 10.2 (7.4-10.4) fL Immature Gran % (Auto) 0.7 % Neut % (Auto) 84.1 % Lymph % (Auto) 8.1 % [place] % (Auto) 6.9 % Eos % (Auto) 0.1 % Baso % (Auto) 0.1 % Neut # (Auto) 12.49 H (1.4-6.5) K/uL Lymph # (Auto) 1.20 (1.2-3.4) K/uL [place] # (Auto) 1.03 H (0.11-0.59) K/uL Eos # (Auto) 0.01 (0-0.5) K/uL Baso # (Auto) 0.01 (0-0.2) K/uL Immature Gran # (Auto) 0.10 H (0.00-0.02) K/uL Polychromasia 1+ POC Sodium (135-144) mmol/L Sodium 134 L (136-145) mmol/L POC Potassium (3.3-5.0) mmol/L Potassium 3.6 (3.5-5.1) mmol/L POC Chloride (101-112) mmol/L Chloride 101 (98-107) mmol/L Carbon Dioxide 28 (21-32) mmol/L POC Total CO2 (24-31) mmol/L Anion Gap 5.0 (3-11) POC Anion Gap (16-25) mmol/L POC BUN (7-18) mg/dl BUN 11 (7-18) mg/dl Creatinine 0.95 (0.6-1.2) mg/dl POC Creatinine (0.6-1.3) mg/dl Est Cr Clr Drug Dosing 72.7 ml/min Est GFR ( Amer) 83.8 ml/min Est GFR (Non-Af Amer) 72.3 ml/min BUN/Creatinine Ratio 11.1 (10-20) Glucose 97 (70-99) mg/dl POC Glucose (other) (70-99) mg/dl Calcium 9.2 (8.5-10.1) mg/dl POC Ioniz Calcium Anuel (1.12-1.32) mmol/l Magnesium (1.8-2.4) mg/dl Total Bilirubin 0.5 (0.2-1) mg/dl AST 15 (15-37) U/L ALT 23 (12-78) U/L Alkaline Phosphatase 105 (45-117) U/L Troponin I < 0.015 (0-0.045) ng/ml Total Protein 8.8 H (6.4-8.2) gm/dl Albumin 3.4 (3.4-5.0) gm/dl Globulin 5.4 H (2.5-4.0) gm/dl Albumin/Globulin Ratio 0.6 L (0.9-2) Lipase 126 (73-393) U/L HCG, Qual Positive (Negative) HCG, Quant mIU/ml Specimen Hemolysis Urine Color Urine Appearance (Clear) Urine pH (4.5-7.5) Ur Specific Nelson (1.000-1.030) Urine Protein (Negative) Urine Glucose (UA) (Negative) Urine Ketones (Negative) Urine Blood (Negative) Urine Nitrite (Negative) Urine Bilirubin (Negative) Urine Urobilinogen (Negative) Ur Leukocyte Esterase (Negative) Urine WBC (Auto) (0-5) /hpf Urine RBC (Auto) (0-4) /hpf U Hyaline Cast (Auto) (0-5) /lpf U Epithel Cells (Auto) (0-5) /lpf Urine Bacteria (Auto) (Negative) Granular Casts (0) /lpf Random Gentamicin mcg/ml C.trachomatis RNA (NOT DETECTED) COVID-19 Eval Order SARS-CoV-2 (PCR) (Negative) N.gonorrhoeae RNA (NOT DETECTED) Reference Lab Comment 07/03/21 07/03/21 07/03/21 Range/Units Unknown Unknown Unknown WBC (4.8-10.8) K/uL RBC (4.2-5.4) M/uL Hgb (12.0-16.0) g/dL POC Hgb (12.0-16.0) g/dl Hct (37-47) % POC Hct (37-47) % MCV (80-100) fL MCH (25-34) pg MCHC (32-36) g/dL RDW Std Deviation (36.4-46.3) fL RDW Coeff of Baljeet (11.5-14.5) % Plt Count (130-400) K/uL MPV (7.4-10.4) fL Immature Gran % (Auto) % Neut % (Auto) % Lymph % (Auto) % [place] % (Auto) % Eos % (Auto) % Baso % (Auto) % Neut # (Auto) (1.4-6.5) K/uL Lymph # (Auto) (1.2-3.4) K/uL [place] # (Auto) (0.11-0.59) K/uL Eos # (Auto) (0-0.5) K/uL Baso # (Auto) (0-0.2) K/uL Immature Gran # (Auto) (0.00-0.02) K/uL Polychromasia POC Sodium (135-144) mmol/L Sodium (136-145) mmol/L POC Potassium (3.3-5.0) mmol/L Potassium (3.5-5.1) mmol/L POC Chloride (101-112) mmol/L Chloride (98-107) mmol/L Carbon Dioxide (21-32) mmol/L POC Total CO2 (24-31) mmol/L Anion Gap (3-11) POC Anion Gap (16-25) mmol/L POC BUN (7-18) mg/dl BUN (7-18) mg/dl Creatinine (0.6-1.2) mg/dl POC Creatinine (0.6-1.3) mg/dl Est Cr Clr Drug Dosing ml/min Est GFR ( Amer) ml/min Est GFR (Non-Af Amer) ml/min BUN/Creatinine Ratio (10-20) Glucose (70-99) mg/dl POC Glucose (other) (70-99) mg/dl Calcium (8.5-10.1) mg/dl POC Ioniz Calcium [place]uel (1.12-1.32) mmol/l Magnesium (1.8-2.4) mg/dl Total Bilirubin (0.2-1) mg/dl AST (15-37) U/L ALT (12-78) U/L Alkaline Phosphatase (45-117) U/L Troponin I (0-0.045) ng/ml Total Protein (6.4-8.2) gm/dl Albumin (3.4-5.0) gm/dl Globulin (2.5-4.0) gm/dl Albumin/Globulin Ratio (0.9-2) Lipase (73-393) U/L HCG, Qual (Negative) HCG, Quant 4 mIU/ml Specimen Hemolysis Urine Color Dark Yellow Urine Appearance Cloudy A (Clear) Urine pH 5.5 (4.5-7.5) Ur Specific Nelson 1.031 H (1.000-1.030) Urine Protein 3+ H (Negative) Urine Glucose (UA) Negative (Negative) Urine Ketones Trace H (Negative) Urine Blood 1+ H (Negative) Urine Nitrite Positive A (Negative) Urine Bilirubin 1+ H (Negative) Urine Urobilinogen Negative (Negative) Ur Leukocyte Esterase Trace H (Negative) Urine WBC (Auto) 10-30 H (0-5) /hpf Urine RBC (Auto) 0-4 (0-4) /hpf U Hyaline Cast (Auto) 10-30 H (0-5) /lpf U Epithel Cells (Auto) >30 H (0-5) /lpf Urine Bacteria (Auto) 4+ H (Negative) Granular Casts 1-5 H (0) /lpf Random Gentamicin mcg/ml C.trachomatis RNA NOT DETECTED (NOT DETECTED) COVID-19 Eval Order SARS-CoV-2 (PCR) (Negative) N.gonorrhoeae RNA NOT DETECTED (NOT DETECTED) Reference Lab Comment SEE NOTE 07/04/21 07/04/21 07/04/21 Range/Units 05:57 05:57 05:57 WBC 12.77 H (4.8-10.8) K/uL RBC 3.57 L (4.2-5.4) M/uL Hgb 11.3 L D (12.0-16.0) g/dL POC Hgb (12.0-16.0) g/dl Hct 35.0 L (37-47) % POC Hct (37-47) % MCV 98.0 (80-100) fL MCH 31.7 (25-34) pg MCHC 32.3 (32-36) g/dL RDW Std Deviation 48.6 H (36.4-46.3) fL RDW Coeff of Baljeet 13.5 (11.5-14.5) % Plt Count 267 (130-400) K/uL MPV 9.7 (7.4-10.4) fL Immature Gran % (Auto) 0.3 % Neut % (Auto) 79.2 % Lymph % (Auto) 9.7 % [place] % (Auto) 10.2 % Eos % (Auto) 0.5 % Baso % (Auto) 0.1 % Neut # (Auto) 10.12 H (1.4-6.5) K/uL Lymph # (Auto) 1.24 (1.2-3.4) K/uL [place] # (Auto) 1.30 H (0.11-0.59) K/uL Eos # (Auto) 0.06 (0-0.5) K/uL Baso # (Auto) 0.01 (0-0.2) K/uL Immature Gran # (Auto) 0.04 H (0.00-0.02) K/uL Polychromasia POC Sodium (135-144) mmol/L Sodium 141 D (136-145) mmol/L POC Potassium (3.3-5.0) mmol/L Potassium 3.4 L (3.5-5.1) mmol/L POC Chloride (101-112) mmol/L Chloride 108 H (98-107) mmol/L Carbon Dioxide 25 (21-32) mmol/L POC Total CO2 (24-31) mmol/L Anion Gap 7.0 (3-11) POC Anion Gap (16-25) mmol/L POC BUN (7-18) mg/dl BUN 8 (7-18) mg/dl Creatinine 0.75 (0.6-1.2) mg/dl POC Creatinine (0.6-1.3) mg/dl Est Cr Clr Drug Dosing 92.1 ml/min Est GFR ( Amer) 111.6 ml/min Est GFR (Non-Af Amer) 96.3 ml/min BUN/Creatinine Ratio 10.5 (10-20) Glucose 98 (70-99) mg/dl POC Glucose (other) (70-99) mg/dl Calcium 8.1 L (8.5-10.1) mg/dl POC Ioniz Calcium Anuel (1.12-1.32) mmol/l Magnesium 1.6 L (1.8-2.4) mg/dl Total Bilirubin 0.4 (0.2-1) mg/dl AST 10 L (15-37) U/L ALT 15 (12-78) U/L Alkaline Phosphatase 73 (45-117) U/L Troponin I (0-0.045) ng/ml Total Protein 5.9 L D (6.4-8.2) gm/dl Albumin 2.2 L (3.4-5.0) gm/dl Globulin 3.7 (2.5-4.0) gm/dl Albumin/Globulin Ratio 0.6 L (0.9-2) Lipase (73-393) U/L HCG, Qual (Negative) HCG, Quant mIU/ml Specimen Hemolysis Urine Color Urine Appearance (Clear) Urine pH (4.5-7.5) Ur Specific Nelson (1.000-1.030) Urine Protein (Negative) Urine Glucose (UA) (Negative) Urine Ketones (Negative) Urine Blood (Negative) Urine Nitrite (Negative) Urine Bilirubin (Negative) Urine Urobilinogen (Negative) Ur Leukocyte Esterase (Negative) Urine WBC (Auto) (0-5) /hpf Urine RBC (Auto) (0-4) /hpf U Hyaline Cast (Auto) (0-5) /lpf U Epithel Cells (Auto) (0-5) /lpf Urine Bacteria (Auto) (Negative) Granular Casts (0) /lpf Random Gentamicin mcg/ml C.trachomatis RNA (NOT DETECTED) COVID-19 Eval Order SARS-CoV-2 (PCR) (Negative) N.gonorrhoeae RNA (NOT DETECTED) Reference Lab Comment 07/04/21 07/04/21 07/05/21 Range/Units 13:10 20:46 05:37 WBC (4.8-10.8) K/uL RBC (4.2-5.4) M/uL Hgb (12.0-16.0) g/dL POC Hgb (12.0-16.0) g/dl Hct (37-47) % POC Hct (37-47) % MCV (80-100) fL MCH (25-34) pg MCHC (32-36) g/dL RDW Std Deviation (36.4-46.3) fL RDW Coeff of Baljeet (11.5-14.5) % Plt Count (130-400) K/uL MPV (7.4-10.4) fL Immature Gran % (Auto) % Neut % (Auto) % Lymph % (Auto) % [place] % (Auto) % Eos % (Auto) % Baso % (Auto) % Neut # (Auto) (1.4-6.5) K/uL Lymph # (Auto) (1.2-3.4) K/uL [place] # (Auto) (0.11-0.59) K/uL Eos # (Auto) (0-0.5) K/uL Baso # (Auto) (0-0.2) K/uL Immature Gran # (Auto) (0.00-0.02) K/uL Polychromasia POC Sodium (135-144) mmol/L Sodium 137 (136-145) mmol/L POC Potassium (3.3-5.0) mmol/L Potassium 4.0 D (3.5-5.1) mmol/L POC Chloride (101-112) mmol/L Chloride 107 (98-107) mmol/L Carbon Dioxide 25 (21-32) mmol/L POC Total CO2 (24-31) mmol/L Anion Gap 5.0 (3-11) POC Anion Gap (16-25) mmol/L POC BUN (7-18) mg/dl BUN 7 (7-18) mg/dl Creatinine 0.72 (0.6-1.2) mg/dl POC Creatinine (0.6-1.3) mg/dl Est Cr Clr Drug Dosing 96.0 ml/min Est GFR ( Amer) 117.2 ml/min Est GFR (Non-Af Amer) 101.1 ml/min BUN/Creatinine Ratio 9.3 L (10-20) Glucose 122 H (70-99) mg/dl POC Glucose (other) (70-99) mg/dl Calcium 8.4 L (8.5-10.1) mg/dl POC Ioniz Calcium Anuel (1.12-1.32) mmol/l Magnesium 2.1 (1.8-2.4) mg/dl Total Bilirubin (0.2-1) mg/dl AST (15-37) U/L ALT (12-78) U/L Alkaline Phosphatase (45-117) U/L Troponin I (0-0.045) ng/ml Total Protein (6.4-8.2) gm/dl Albumin (3.4-5.0) gm/dl Globulin (2.5-4.0) gm/dl Albumin/Globulin Ratio (0.9-2) Lipase (73-393) U/L HCG, Qual (Negative) HCG, Quant 3 mIU/ml Specimen Hemolysis Urine Color Urine Appearance (Clear) Urine pH (4.5-7.5) Ur Specific Nelson (1.000-1.030) Urine Protein (Negative) Urine Glucose (UA) (Negative) Urine Ketones (Negative) Urine Blood (Negative) Urine Nitrite (Negative) Urine Bilirubin (Negative) Urine Urobilinogen (Negative) Ur Leukocyte Esterase (Negative) Urine WBC (Auto) (0-5) /hpf Urine RBC (Auto) (0-4) /hpf U Hyaline Cast (Auto) (0-5) /lpf U Epithel Cells (Auto) (0-5) /lpf Urine Bacteria (Auto) (Negative) Granular Casts (0) /lpf Random Gentamicin 2.80 mcg/ml C.trachomatis RNA (NOT DETECTED) COVID-19 Eval Order SARS-CoV-2 (PCR) (Negative) N.gonorrhoeae RNA (NOT DETECTED) Reference Lab Comment 07/05/21 07/06/21 07/06/21 Range/Units 05:37 05:28 05:28 WBC 12.76 H 13.07 H (4.8-10.8) K/uL RBC 3.81 L 3.80 L (4.2-5.4) M/uL Hgb 11.8 L 11.8 L (12.0-16.0) g/dL POC Hgb (12.0-16.0) g/dl Hct 36.4 L 36.9 L (37-47) % POC Hct (37-47) % MCV 95.5 97.1 (80-100) fL MCH 31.0 31.1 (25-34) pg MCHC 32.4 32.0 (32-36) g/dL RDW Std Deviation 48.6 H 48.8 H (36.4-46.3) fL RDW Coeff of Baljeet 13.8 13.9 (11.5-14.5) % Plt Count 310 408 H (130-400) K/uL MPV 9.8 9.8 (7.4-10.4) fL Immature Gran % (Auto) 0.9 1.7 % Neut % (Auto) 76.2 77.4 % Lymph % (Auto) 11.1 10.7 % [place] % (Auto) 10.7 9.3 % Eos % (Auto) 0.9 0.8 % Baso % (Auto) 0.2 0.1 % Neut # (Auto) 9.73 H 10.12 H (1.4-6.5) K/uL Lymph # (Auto) 1.41 1.40 (1.2-3.4) K/uL [place] # (Auto) 1.37 H 1.22 H (0.11-0.59) K/uL Eos # (Auto) 0.11 0.10 (0-0.5) K/uL Baso # (Auto) 0.02 0.01 (0-0.2) K/uL Immature Gran # (Auto) 0.12 H 0.22 H (0.00-0.02) K/uL Polychromasia POC Sodium (135-144) mmol/L Sodium 139 (136-145) mmol/L POC Potassium (3.3-5.0) mmol/L Potassium 3.8 (3.5-5.1) mmol/L POC Chloride (101-112) mmol/L Chloride 106 (98-107) mmol/L Carbon Dioxide 27 (21-32) mmol/L POC Total CO2 (24-31) mmol/L Anion Gap 6.0 (3-11) POC Anion Gap (16-25) mmol/L POC BUN (7-18) mg/dl BUN 6 L (7-18) mg/dl Creatinine 0.68 (0.6-1.2) mg/dl POC Creatinine (0.6-1.3) mg/dl Est Cr Clr Drug Dosing 101.6 ml/min Est GFR ( Amer) 122.4 ml/min Est GFR (Non-Af Amer) 105.6 ml/min BUN/Creatinine Ratio 9.0 L (10-20) Glucose 117 H (70-99) mg/dl POC Glucose (other) (70-99) mg/dl Calcium 9.0 (8.5-10.1) mg/dl POC Ioniz Calcium Anuel (1.12-1.32) mmol/l Magnesium 1.8 (1.8-2.4) mg/dl Total Bilirubin (0.2-1) mg/dl AST (15-37) U/L ALT (12-78) U/L Alkaline Phosphatase (45-117) U/L Troponin I (0-0.045) ng/ml Total Protein (6.4-8.2) gm/dl Albumin (3.4-5.0) gm/dl Globulin (2.5-4.0) gm/dl Albumin/Globulin Ratio (0.9-2) Lipase (73-393) U/L HCG, Qual (Negative) HCG, Quant mIU/ml Specimen Hemolysis Urine Color Urine Appearance (Clear) Urine pH (4.5-7.5) Ur Specific Nelson (1.000-1.030) Urine Protein (Negative) Urine Glucose (UA) (Negative) Urine Ketones (Negative) Urine Blood (Negative) Urine Nitrite (Negative) Urine Bilirubin (Negative) Urine Urobilinogen (Negative) Ur Leukocyte Esterase (Negative) Urine WBC (Auto) (0-5) /hpf Urine RBC (Auto) (0-4) /hpf U Hyaline Cast (Auto) (0-5) /lpf U Epithel Cells (Auto) (0-5) /lpf Urine Bacteria (Auto) (Negative) Granular Casts (0) /lpf Random Gentamicin mcg/ml C.trachomatis RNA (NOT DETECTED) COVID-19 Eval Order SARS-CoV-2 (PCR) (Negative) N.gonorrhoeae RNA (NOT DETECTED) Reference Lab Comment Assessment and plan: 46-year-old female was admitted for tubo-ovarian abscess,? diverticulitis and UTI with urine culture, positive for E. coli. Vital signs stable afebrile, Nausea, diarrhea started yesterday Now on Levaquin and Flagyl, White count is elevated, Plan to continue to monitor continue with current antibiotic regimen, stool culture for C. difficile and consult ID if no improvement, Plan is confirmed with medical team. Results & Data ([facility]) Vital Signs (Past 12 Hours) Vital Signs Temp Pulse Resp BP Pulse Ox 07/06/21 07:50 36.8 C 71 18 127/83 99 07/06/21 03:40 36.8 C 76 18 118/72 98
[2021-07-06] MEDS: LACTOBACILLUS ACIDOPHILUS 1 GM PACK PO SCH ×2 (12:02→16:54)
[2021-07-06] MEDS: levoFLOXacin/D5W 500 MG/100 ML BAG IV SCH (13:43)
--- NOTE | 2021-07-06 15:36 | Hospitalist Progress Note ---
Date of Service July 06, 2021 Assessment & Plan (1) TOA (tubo-ovarian abscess): Plan: Sepsis-POA Tubo-ovarian abscess -CT ABD:Tubular hypoattenuating lesions with septation, mucosal enhancement and thickening as well as surrounding edema could represent pyosalpinx/tubo-ovarian abscess. Further BEHAVIORAL HEALTH AIDE evaluation and possible pelvic ultrasound might be considered. Diverticulosis of sigmoid colon colon is seen with mild surrounding fat stranding which might represent reactive changes due to close proximity a dose of pelvic inflammatory process versus developing diverticulitis which is less likely. -Transvaginal USD:Complex multiloculated collection within the superior right adnexa, adjacent to the right ovary and superior aspect of the uterus extending to the midline. This corresponds to the collection shown on CT. Measurements difficult to obtain by sonography however the largest component measures approximately 6 x 4 cm. This is suggestive of a tubo-ovarian abscess. -Blood Cx: Negative to date -Serology for chlamydia, Neisseria negative -Received IV fluids -IV clindamycin and gentamicin, transition to Levaquin, Flagyl Appreciate VITICULTURE TEACHER input Consider repeat CT scan if symptoms worsen Afebrile today Persistent leukocytosis (2) Positive test: Plan: Initial hcg is positive, hcg quant of 3 Pelvic ultrasound without intrauterine gestational sac. (3) Hypertension: Plan: BP initially elevated Bp stable now Continue Nifedipine 30 mg daily (4) Hypomagnesemia: Plan: Replace as needed (5) Hypokalemia: Plan: Replace electrolytes as needed (6) UTI (urinary tract infection): Plan: Urine Cx growing smith sensitive E coli IV cefoxitin transitioned to Levaquin Diarrhea Check stool for c diff DVT Px: Teds, scds Disposition: Per primary service Thank you for this consultation. We will follow the patient with you during their hospital stay. You can reach a [facility]/05 via pager @ [place] Text role. Admission and Anticipated Discharge Date Admission Date: July 03, 2021 Subjective Patient is seen and examined at bedside Tolerates clear liquid diet States having diarrhea but no blood in stool Reports having minimal abdominal discomfort but no significant pain Denies chest pain, dyspnea, dizziness, nausea, vomiting Discussed with VITICULTURE TEACHER today Review of Systems Review of Systems: All systems reviewed & are unremarkable except as noted in Subjective Physical Exam Physical Exam: Physical Exam: Vitals signs as noted above General Appearance:Moderately built and nourished, no apparent distress Head: normocephalic, Atraumatic Eyes: normal inspection, EOMI Neck: supple, Trachea midline Respiratory/Chest: Normal breath sounds, CTA, No accessory muscle use Cardiovascular: S1, S2, No murmur Abdomen/GI:Soft, Non tender, Bowel sounds present Extremities/Musculoskeletal:normal inspection, no edema Neurologic/Psych:AAOX3, grossly no focal neurological deficits Skin: normal color, warm Results & Data Results & Data ([facility]) Vital Signs (Past 12 Hours) Vital Signs Temp Pulse Resp BP Pulse Ox 07/06/21 12:00 37 C 82 18 137/83 98 07/06/21 07:50 36.8 C 71 18 127/83 99 07/06/21 03:40 36.8 C 76 18 118/72 98 Laboratory Results Short CBC 07/06/21 Range/Units 05:28 WBC 13.07 H (4.8-10.8) K/uL Hgb 11.8 L (12.0-16.0) g/dL Hct 36.9 L (37-47) % Plt Count 408 H (130-400) K/uL BMP 07/06/21 05:28 Sodium 139 Potassium 3.8 Chloride 106 Carbon Dioxide 27 BUN 6 L Creatinine 0.68 Glucose 117 H Calcium 9.0
[2021-07-06] MEDS: ACETAMINOPHEN 325 MG TAB PO PRN ×2 (15:50→23:49)
[2021-07-06] MEDS: ONDANSETRON INJ 2 MG/ML 2 ML VIAL IV PRN (23:50)
[2021-07-07] MEDS: metroNIDAZOLE 500 MG/100 ML BAG IV SCH ×3 (03:47→19:46)
[2021-07-07] MEDS: ACETAMINOPHEN 325 MG TAB PO PRN ×2 (06:10→19:49)
[2021-07-07] MEDS: LACTATED RINGER'S 1,000 ML IV SCH ×2 (06:13→19:46)
[2021-07-07 06:35] LABS: Hematocrit (blood only) 38.4 % (37-47); Hemoglobin 12.4 g/dL (12.0-16.0); Mean Corpuscular Hgb Conc 32.3 g/dL (32-36); Mean Platelet Volume 9.2 fL (7.4-10.4); Platelet Count 465 K/uL (130-400); RDW Standard Deviation 49.6 fL (36.4-46.3); White Blood Count 15.27 K/uL (4.8-10.8)
[2021-07-07 07:01] LABS: BUN Creatinine Ratio 6.8 (10-20); Calcium 9.1 mg/dl (8.5-10.1); Creatinine Clr Calc Pharmacy 93.4 ml/min; Est GFR (African American) 113.4 ml/min; Est GFR (Non-African American) 97.8 ml/min; Magnesium 2.1 mg/dl (1.8-2.4); Potassium 4.2 mmol/L (3.5-5.1)
[2021-07-07] MEDS: IBUPROFEN 600 MG TAB PO PRN ×2 (08:14→21:12)
[2021-07-07] MEDS: LACTOBACILLUS ACIDOPHILUS 1 GM PACK PO SCH ×2 (08:15→12:35)
[2021-07-07] MEDS: NIFEdipine EXTENDED REL 30 MG TABCR PO SCH (08:57)
[2021-07-07] MEDS: PANTOprazole 40 MG TAB PO SCH (08:57)
[2021-07-07] MEDS ORDERED: LOPERAMIDE HCL 2 MG CAP PO PRN (09:31)
[2021-07-07] MEDS ORDERED: OPTIRAY 320 100ml IV ONE (09:42)
[2021-07-07 10:22] LABS: Albumin Level 2.5 gm/dl (3.4-5.0); BUN Creatinine Ratio 7.5 (10-20); Calcium 9.3 mg/dl (8.5-10.1); Creatinine Clr Calc Pharmacy 83.2 ml/min; Est GFR (African American) 98.7 ml/min; Est GFR (Non-African American) 85.2 ml/min; Potassium 3.8 mmol/L (3.5-5.1)
[2021-07-07 10:24] LABS: Albumin Globulin Ratio 0.6 (0.9-2); Bilirubin,Total 0.3 mg/dl (0.2-1); Globulin 4.3 gm/dl (2.5-4.0); Total Protein 6.8 gm/dl (6.4-8.2)
--- NOTE | 2021-07-07 10:44 | CT Scan Report ---
ABDOMEN AND PELVIS CT WITH IV CONTRAST CT DOSE: 372.56 mGy.cm HISTORY: Follow up study in a patient with pulmonary abscess tuboovarian abscess, elevated WBC TECHNIQUE: Multiaxial CT images of the abdomen and pelvis were performed following the IV administrat ion of 93 cc of Optiray, A dose lowering technique was utilized adhering to the principles of ALARA. COMPARISON STUDY: Pelvic ultrasound and CT abdomen and pelvis studies 07/03/2021 FINDINGS: Imaged inferior cardiac chambers are unremarkable. Trace left and small right pleural effus ions, new from comparison. Minimal subsegmental bibasilar atelectasis. Unremarkable spleen, pancreas, adrenal glands, contracted gallbladder and liver. Patency of the hepatic and portal veins. Indetermi tom ill-defined 9 mm hypodense focus of the posterior right hepatic lobe. Subcentimeter calcificatio n of the right hepatic lobe. Unremarkable kidneys. No hydronephrosis. Dilation of the right ureter is likely reactive secondary to the inflammatory changes within the pelvis as below. Unremarkable urinary bladder, uterus and left a dnexum. Multiloculated air and fluid-filled collection within the right hemipelvis measuring 9.6 x 7. 9 cm on image 69 series 3 previously measured approximately 8.0 x 7.3 cm when measured in a similar f ashion on comparison study. The amount of air within this collection has increased from comparison. M oderate surrounding inflammatory stranding. Interval development of numerous air and fluid-filled dilated loops of small bowel within the abdomen and pelvis with decompressed terminal ileum. Transition point is noted within the abdominal right lo wer quadrant adjacent to the adnexal fluid collection. Decompressed ileum with mild colonic diverticu losis. Interloop edema with trace abdominal pelvic ascites. Mild wall thickening of the distal stomac h may be secondary to partial distention. A pill fragment is also present within the distal stomach. No acute fracture. IMPRESSION: 1. Mildly increased size of the multiloculated air and fluid-filled peripherally enhancing collection of the right hemipelvis suggestive of a tubo-ovarian abscess measuring up to approximately 9.6 x 7.9 cm. 2. Interval development of a small bowel obstruction with transition point within the abdominal right lower quadrant adjacent to the abscess. 3. Trace abdominal pelvic ascites with small right and trace left pleural effusions. ACT 112: Negative or not required by law. The above report was generated using voice recognition software. It may contain grammatical, syntax o r spelling errors. Electronically signed by: Fausto Morrison M.D. 07/07/2021 10:43 AM
--- NOTE | 2021-07-07 11:55 | Obstetrical Progress Note ---
Date of Service July 07, 2021 Assessment & Plan Admission and Anticipated Discharge Date Admission Date: July 03, 2021 Subjective Patient is seen and examined. She feels distended in her abdomen and unable to pass gas. She had small diarrhea episodes x2 yesterday and 1 this morning. But she is not passing gas in between. She was nauseous one time but has not vomited she feels queasy and does not feel hungry to eat. She denies fever, chills, chest pain, shortness of breath, vaginal bleeding or discharge. Vital signs stable and stable, afebrile, Her abdomen is distended, nontender, normal bowel sounds. Her white count is elevated today at 15.2 I spoke with hospitalist and recommended repeat CT scan. I spoke with infectious disease in [facility], he agreed with antibiotic regimen and recommended to continue as p.o. when she was discharged. CT scan showed small bowel obstruction which is a new finding and slightly larger abscess in the right adnexa. General surgery was consulted for above findings. Continue to monitor, IV antibiotics, IV fluids and n.p.o. Patient understands all and we will await for general surgery evaluation. All questions were answered. Results & Data ([facility]) Vital Signs (Past 12 Hours) Vital Signs Temp Pulse Resp BP Pulse Ox 07/07/21 08:15 36.7 C 83 18 134/84 96 07/07/21 04:00 37.1 C 94 H 20 129/77 95 07/06/21 23:55 37 C 80 20 129/78 97
[2021-07-07] MEDS: levoFLOXacin/D5W 500 MG/100 ML BAG IV SCH (14:02)
--- NOTE | 2021-07-07 16:41 | Hospitalist Progress Note ---
Date of Service July 07, 2021 Assessment & Plan (1) TOA (tubo-ovarian abscess): Plan: Sepsis-POA Tubo-ovarian abscess -CT ABD:Tubular hypoattenuating lesions with septation, mucosal enhancement and thickening as well as surrounding edema could represent pyosalpinx/tubo-ovarian abscess. Further JOURNEYMAN MEAT CUTTER evaluation and possible pelvic ultrasound might be considered. Diverticulosis of sigmoid colon colon is seen with mild surrounding fat stranding which might represent reactive changes due to close proximity a dose of pelvic inflammatory process versus developing diverticulitis which is less likely. -Transvaginal USD:Complex multiloculated collection within the superior right adnexa, adjacent to the right ovary and superior aspect of the uterus extending to the midline. This corresponds to the collection shown on CT. Measurements difficult to obtain by sonography however the largest component measures approximately 6 x 4 cm. This is suggestive of a tubo-ovarian abscess. -Blood Cx: Negative to date -Serology for chlamydia, Neisseria negative -Received IV fluids -IV clindamycin and gentamicin, transition to Levaquin, Flagyl Appreciate BOX CUTTER input John ALFARO recommended to continue current regimen of antibiotics Small bowel obstruction CT ABD:Interval development of a small bowel obstruction with transition point within the abdominal right lower quadrant adjacent to the abscess. Patient n.p.o. Continue gentle IV fluids Consider NG tube if needed Consults with surgery (2) Positive test: Plan: Initial hcg is positive, hcg quant of 3 Pelvic ultrasound without intrauterine gestational sac. (3) Hypertension: Plan: BP initially elevated Bp stable now Continue Nifedipine 30 mg daily (4) Hypomagnesemia: Plan: Replace as needed (5) Hypokalemia: Plan: Replace electrolytes as needed (6) UTI (urinary tract infection): Plan: Urine Cx growing smith sensitive E coli IV cefoxitin transitioned to Levaquin Diarrhea stool for c diff Negative DVT Px: Teds, scds Disposition: Per primary service Thank you for this consultation. We will follow the patient with you during their hospital stay. You [facility] via pager @ [place] Text role. Admission and Anticipated Discharge Date Admission Date: July 03, 2021 Subjective Patient is seen and examined at bedside States having abdominal distention associated with some nausea Had small bowel movement early this morning Discussed with BOX CUTTER today Denies any significant abdominal pain Also denies chest pain, shortness of breath, dizziness Repeat CT suggestive of SBO Review of Systems Review of Systems: All systems reviewed & are unremarkable except as noted in Subjective Physical Exam Physical Exam: Physical Exam: Vitals signs as noted above General Appearance:Moderately built and nourished, no apparent distress Head: normocephalic, Atraumatic Eyes: normal inspection, EOMI Neck: supple, Trachea midline Respiratory/Chest: Normal breath sounds, CTA, No accessory muscle use Cardiovascular: S1, S2, No murmur Abdomen/GI:Soft, Non tender, distended, Decreased Bowel sounds Extremities/Musculoskeletal:normal inspection, no edema Neurologic/Psych:AAOX3, grossly no focal neurological deficits Skin: normal color, warm Results & Data Results & Data ([facility]) Vital Signs (Past 12 Hours) Vital Signs Temp Pulse Resp BP Pulse Ox 07/07/21 16:00 36.9 C 83 18 132/78 98 07/07/21 12:15 36.9 C 73 18 135/87 97 07/07/21 08:15 36.7 C 83 18 134/84 96 Laboratory Results Short CBC 07/07/21 Range/Units 06:13 WBC 15.27 H (4.8-10.8) K/uL Hgb 12.4 (12.0-16.0) g/dL Hct 38.4 (37-47) % Plt Count 465 H (130-400) K/uL BMP 07/07/21 07/07/21 06:13 09:51 Sodium 138 136 Potassium 4.2 3.8 Chloride 103 103 Carbon Dioxide 29 27 BUN 5 L 6 L Creatinine 0.74 0.83 Glucose 119 H 166 H Calcium 9.1 9.3 Liver Function 07/07/21 Range/Units 09:51 Total Bilirubin 0.3 (0.2-1) mg/dl AST 40 H (15-37) U/L ALT 65 (12-78) U/L Alkaline Phosphatase 81 (45-117) U/L Albumin 2.5 L (3.4-5.0) gm/dl
--- NOTE | 2021-07-07 20:48 | Surgery Consultation ---
Date of Consultation July 07, 2021 Assessment & Plan (1) Small bowel obstruction: Patient has been admitted by the NEW CAR GET READY MECHANIC service with the following treatment: She is receiving antibiotics in the form of Levaquin and Flagyl to treat her tubo-ovarian abscess The [employer] CAR GET READY MECHANIC service has discussed with infectious disease. -Small bowel obstruction noted on CT scan may not necessarily be a small bowel obstruction but may be a mechanical problem related to her tubo-ovarian abscess or an ileus. Treatment of her underlying tubo-ovarian abscess may be beneficial in correcting the small bowel obstruction/ileus As patient has been in the hospital for 5 days antibiotics alone may not be enough to resolve this problem and drainage of her tubo-ovarian abscess may need to be considered. Whether this is done via interventional radiology, laparoscopically, or via open surgery will be deferred to the NEW CAR GET READY MECHANIC service At the present time the patient's not experiencing any vomiting and her abdomen is only mildly distended and not firm. Therefore I do not feel an NG tube is required. If patient's clinical course worsens she may require an NG tube for gastric decompression. Supervising Physician Co-Signing Physician Notes I personally saw and evaluated the patient with Damien Head PA-C and agree with the assessment and plan 46 yo female with Right Tubo-ovarian abscess with reactive ileus versus SBO -CT images and results reviewed, worsening abscess compared with 07/03 -I think her small bowel distension is reactive to her abscess -Once her abscess is drained, her ileus will slowly resolve -Discussed with STONE SETTER attending that abscess should be drained via IR or possible operative drainage -Will follow History of Present Illness Reason for Consultation: Small bowel obstruction Attending Physician: Randall Hartley MD History of Present Illness This is a 46-year-old female who is admitted to [facility] on 07/04/2021. Prior to admission the patient was complaining of right abdominal pain for approximately [address] scan done the day of admission showed the patient had a possible tubo-ovarian abscess. Question patient had her pain and she said that she has had dull achy pain for approximately 10 days as noted above. She did not note any palliative or provocative factors. She did not have any fevers, shakes, chills. She has not had any vomiting but does note that she feels nauseated at times. Patient reports she is not passing much flatus and she did have a very small bowel movement earlier today. Of note the patient reports that the only abdominal surgery she has had was a laparoscopic tubal ligation. Since admission the patient has had blood cultures drawn which are negative to date. She has had a urine culture from 07/03/2021 that showed E. coli which is pansensitive. She has been treated with antibiotics in the form of Flagyl and Levaquin. As the patient was not exhibiting significant clinical improvement a repeat CT scan was performed today which I independently reviewed. This scan showed the patient had an increase in size of her tubo-ovarian abscess which now measures approximately 9.6 x 7.9 cm. The scan also showed interval development of a possible small bowel obstruction with a transition point in the right lower quadrant adjacent to the tubo-ovarian abscess. Patient's labs were reviewed and today her white blood cell count is 15.2 which is the highest level has been since admission. Her hemoglobin and hematocrit are within normal range and her platelet count is 4 and 65,000. Chemistry profile revealed sodium and potassium were normal. Her creatinine was also within the normal range. Patient has had a Covid test this admission which is noted to be negative. A stool has been sent for C. difficile yesterday which was noted to be negative. At the time of my interview the patient was resting in bed. She did note some generalized abdominal pain again with some nausea and no vomiting. She was in no distress at the time of my interview. Allergies Allergy/AdvReac Type Severity Reaction Status Date / Time No Known Allergies Allergy Unverified 07/03/21 15:30 Home Medications Medication Instructions Recorded Confirmed Type omeprazole 20 mg capsule,delayed 20 mg PO DAILY 07/03/21 07/04/21 History release ibuprofen 600 mg tablet 600 mg PO TID 07/04/21 07/04/21 History Patient History Medical History TOA (tubo-ovarian abscess) Social History Smoking Status: Never smoker Second Hand Exposure: No; Hx Alcohol Use: No Hx Substance Use: No Preferred Language: Amharic Communication Ability: Effective Cant Hooker Required: No Beliefs That Will Affect Care: None Current Living Situation: Family Feels Safe at Home: Yes Safety Concerns: Feels Safe At This Time Assistive Devices: None Review of Systems Constitutional: no fever and no chills Eyes: no diplopia Ear, Nose, Mouth, Throat: no ear pain and no sore throat Respiratory: no cough and no dyspnea Cardiovascular: no chest pain Gastrointestinal: + abdominal pain and + nausea; no vomiting Genitourinary: no dysuria Musculoskeletal: no back pain Integumentary: no rash Neurologic: no localized weakness Physical Exam Constitutional: well developed and well nourished; no acute distress Eyes: no conjunctival abnormality ENMT: Ears: no hearing impairment Mouth: no oral mucosal abnormality Neck: trachea midline Respiratory: normal respiratory effort; no respiratory distress and no labored breathing Cardiovascular: Rate/Rhythm: regular rate and regular rhythm Gastrointestinal (Abdomen): Patient's abdomen is mildly distended. Her abdomen is generally soft and not firm. There is some tympany with percussion. Patient really did not exhibit any pain with palpation however she did exhibit rebound tenderness. Musculoskeletal: No gross orthopedic abnormalities. No calf tenderness Skin: no rashes Neurologic: moves all extremities Psychiatric: Orientation: alert and oriented x 3 Results & Data ([facility]) Vital Signs (Past 12 Hours) Vital Signs Temp Pulse Resp BP Pulse Ox 07/07/21 16:00 36.9 C 83 18 132/78 98 07/07/21 12:15 36.9 C 73 18 135/87 97 PG Care Time/CCT Total # of Minutes Spent Total Time Spent with Patient: Total time spent is greater than 50% in coordination of care (as documented) at patient's floor/unit and/or counseling patient: Coding Level of Care Code 65050 Inpt Consult Level 5 Diagnoses Small bowel obstruction K56.609
[2021-07-07] MEDS ORDERED: diphenhydrAMINE Capsule 25 MG CAP PO ONE (22:40)
[2021-07-07] MEDS ORDERED: MoRPHine SULFATE 4 MG/ML 1 ML CARP\\VIAL IV PRN (22:40)
[2021-07-07] MEDS ORDERED: MELATONIN 3 MG TAB PO PRN (22:40)
[2021-07-07] MEDS ORDERED: KETOROLAC TROMETHAMINE 15 MG/ML VIAL IV PRN (22:40)
[2021-07-07] MEDS ORDERED: ACETAMINOPHEN 1,000 MG/100 ML VIAL IV PRN (22:40)
--- NOTE | 2021-07-07 22:40 | Gynecologic Progress Note ---
Date of Service July 07, 2021 Assessment & Plan Admission and Anticipated Discharge Date Admission Date: July 03, 2021 Subjective Patient is related. She states her abdomen is getting worse, getting more distended more pain. She has been taking p.o. Tylenol Motrin and they have not been helping. She has some nausea but no vomiting. She cannot pass gas despite she has been walking around the hallway today. She had very small loose bowel movements x2. She denies fever chills, chest pain shortness of breath, dizziness. I spoke with general surgeon, Dr. Batista who recommended abscess drained by interventional radiology or surgically to relieve bowel obstruction. I spoke with IR team in [facility] in [place] and send them the pictures of CT scan from today. They reviewed the pictures and they recommended against drainage by IR due to close proximity to the veins and bowel loops. I spoke with our laparoscopic plastic and reconstructive surgeon who recommended referral to tertiary care center. I spoke with [facility] they did not recommend anything other than opening her and draining the abscess with as an general surgeon. I spoke with general surgeon here and we planned to take her to the OR for laparotomy, incision/drainage/removal of right tubo-ovarian abscess, possible right salpingo-oophorectomy, possible JULIUS, BSO in the morning. I explained to the patient and her to FaceTime call. They agree with recommendations and she signed an informed consent. She will have another consent signed by her and general surgeon in the morning. I notified coordinator of hospital she reserved spot in the morning for us. Plan n.p.o. after midnight, IV pain medications, IV antibiotics and continues to monitor. All questions were answered. Results & Data ([facility]) Vital Signs (Past 12 Hours) Vital Signs Temp Pulse Resp BP Pulse Ox 07/07/21 19:45 36.9 C 88 18 127/88 97 07/07/21 16:00 36.9 C 83 18 132/78 98 07/07/21 12:15 36.9 C 73 18 135/87 97
[2021-07-08] MEDS: metroNIDAZOLE 500 MG/100 ML BAG IV SCH (03:49)
--- NOTE | 2021-07-08 05:38 | Surgery Progress Note ---
Date of Service July 08, 2021 Assessment & Plan (1) Small bowel obstruction: Plan: Patient has been admitted by the LITHOGRAPHIC PLATE MAKER service with the following treatment: She is receiving antibiotics in the form of Levaquin and Flagyl to treat her tubo-ovarian abscess which should continue The LITHOGRAPHIC PLATE MAKER service has discussed with infectious disease. -As noted the small bowel obstruction on CT scan may be a reactive problem related to her tubo-ovarian abscess Due to the patient's clinical status the LITHOGRAPHIC PLATE MAKER service is planning on taking patient to the operating room today for further intervention At the present time the patient does not experience any nausea vomiting so not feel an NG tube needs to be placed at this time Further recommendations made based on operative findings and patient's postoperative recovery Admission and Anticipated Discharge Date Admission Date: July 03, 2021 Supervising Physician Co-Signing Physician Notes I personally saw and evaluated the patient with Damien Head PA-C and agree with the assessment and plan 46 yo female with Right Tubo-ovarian abscess with reactive ileus versus SBO -MUSEUM DIRECTOR is planning operative drainage today -Will be available to assist as needed -Further recs pending post-operative course Subjective Patient is resting comfortably in bed. She continues to complain of abdominal pain similar to what was noted at the time of my interview last evening. She denies any nausea or vomiting. No fevers, shakes, chills. She denies passing any flatus or having any bowel movements. Physical Exam Gastrointestinal (Abdomen): Patient's abdomen is mildly distended but not firm. Bowel sounds are hypoactive to absent. There is pain with palpation in a generalized fashion but appears greatest on the right side of her abdomen with associated rebound tenderness. Results & Data ([facility]) Vital Signs (Past 12 Hours) Vital Signs Temp Pulse Resp BP Pulse Ox 07/08/21 03:45 36.9 C 85 20 122/82 95 07/07/21 23:30 37 C 82 18 134/83 97 07/07/21 19:45 36.9 C 88 18 127/88 97 PG Care Time/CCT Total # of Minutes Spent Total Time Spent with Patient: Total time spent is greater than 50% in coordination of care (as documented) at patient's floor/unit and/or counseling patient: Coding Level of Care Code 14916 Subseq Hosp Care Lvl 1 Diagnoses Small bowel obstruction K56.609
[2021-07-08 06:40] LABS: Hematocrit (blood only) 37.6 % (37-47); Hemoglobin 12.4 g/dL (12.0-16.0); Mean Corpuscular Hemoglobin 31.6 pg (25-34); Mean Corpuscular Volume 95.7 fL (80-100); Mean Platelet Volume 9.1 fL (7.4-10.4); Platelet Count 509 K/uL (130-400); RDW Coefficient of Variation 13.9 % (11.5-14.5); RDW Standard Deviation 48.9 fL (36.4-46.3); Red Blood Count 3.93 M/uL (4.2-5.4); White Blood Count 16.96 K/uL (4.8-10.8)
[2021-07-08] MEDS: LACTATED RINGER'S 1,000 ML IV SCH ×3 (06:50→13:47)
[2021-07-08] MEDS ORDERED: fentaNYL citrate 100 MCG/2 ML VIAL ONE ×2 (07:05→10:22)
[2021-07-08] MEDS ORDERED: MIDAZOLAM HCL 1 MG/ML 2ML VIAL ONE (07:05)
[2021-07-08 07:28] LABS: Calcium 9.2 mg/dl (8.5-10.1); Creatinine Clr Calc Pharmacy 107.9 ml/min; Est GFR (African American) 124.9 ml/min; Est GFR (Non-African American) 107.8 ml/min; Magnesium 2.1 mg/dl (1.8-2.4)
[2021-07-08] MEDS ORDERED: BUPIVACAINE 0.5 % 5 MG/1 ML MPF 30ML VIAL ONE (08:02)
[2021-07-08] MEDS ORDERED: EPINEPHrine INJ 1 MG/ML AMP ONE (08:02)
[2021-07-08] MEDS ORDERED: KETAMINE 50 MG/5 ML SYRINGE ONE (08:22)
[2021-07-08] MEDS ORDERED: ATROPINE SULFATE 0.1 MG/ML 10ML SYR IV PRN (08:42)
[2021-07-08] MEDS ORDERED: ePHEDrine sulfate 50 MG/ML AMP IV PRN (08:42)
[2021-07-08] MEDS ORDERED: HYDROmorphone INJ 2 MG/ML SYR/VIAL IV PRN (08:42)
[2021-07-08] MEDS ORDERED: ONDANSETRON INJ 2 MG/ML 2 ML VIAL IV PRN (08:42)
[2021-07-08] MEDS ORDERED: fentaNYL citrate 100 MCG/2 ML VIAL IV PRN (08:42)
--- NOTE | 2021-07-08 08:42 | Anesthesiology Consultation ---
Date of Service July 08, 2021 Assessment & Plan ASA ASA2 Proposed Anesthesia Anesthesia Type: General Risk / Benefits Reviewed With: PT / POA / Parent / Guardian, Accepts Plan and Informed Consent Obtained History Surgery Operation Date: 07/08/21 08:30 Proposed Procedures p Laparoscopic Assisted Vaginal Hysterecto - Emmy Lomas MD Height/Weight Height: 5 ft 7 in Weight: 71.214 kg Allergies Allergy/AdvReac Type Severity Reaction Status Date / Time No Known Allergies Allergy Unverified 07/03/21 15:30 Medications Home Medications Medication Instructions Recorded Confirmed Last Taken omeprazole 20 mg capsule,delayed 20 mg PO DAILY 07/03/21 07/04/21 Unknown release ibuprofen 600 mg tablet 600 mg PO TID 07/04/21 07/04/21 Unknown Active Medications Generic Name Dose Route Start Last Admin Trade Name Freq PRN Reason Stop Dose Admin Acetaminophen 650 mg 07/03/21 18:00 07/07/21 19:49 Acetaminophen 325 Mg Tab PO 08/02/21 17:59 650 mg Q4H PRN Administration Pain or Fever Lactated Ringer's 1,000 mls @ 100 mls/hr 07/03/21 18:00 07/08/21 06:50 Lr IV 08/02/21 17:59 100 mls/hr .Q10H BROOKE Administration Metronidazole 500 mg in 100 mls @ 100 mls/hr 07/05/21 12:00 07/08/21 03:49 Flagyl IV 07/14/21 11:59 100 mls/hr Q8H BROOKE Administration Protocol Levofloxacin/Dextrose 500 mg in 100 mls @ 100 mls/hr 07/05/21 14:00 07/07/21 14:02 Levaquin/D5w IV 07/14/21 13:59 100 mls/hr Q24H BOROKE Administration Protocol Ibuprofen 600 mg 07/04/21 16:02 07/07/21 21:12 Ibuprofen 600 Mg Tab PO 08/03/21 16:14 600 mg Q6H PRN Administration Pain Ketorolac Tromethamine 15 mg 07/07/21 22:40 07/08/21 03:46 Ketorolac Tromethamine 15 Mg/Ml Vial IV 07/12/21 22:39 15 mg Q6H PRN Administration Pain Lactobacillus Acidophilus 1 gm 07/06/21 12:00 07/07/21 12:35 Lactobacillus Acidophilus 1 Gm Pack PO 08/05/21 11:59 Not Given TIDM BROOKE Nifedipine 30 mg 07/04/21 09:00 07/07/21 08:57 Nifedipine Extended Rel 30 Mg Tabcr PO 08/03/21 08:59 30 mg QAM BROOKE Administration Ondansetron HCl 4 mg 07/03/21 18:00 07/06/21 23:50 Ondansetron Inj 2 Mg/Ml 2 Ml Vial IV 08/02/21 17:59 4 mg Q6H PRN Administration Nausea And Vomiting Oxycodone/Acetaminophen 1 tab 07/03/21 21:41 07/04/21 15:28 Oxycodone/Acetaminophen 5mg/325mg Tab PO 07/17/21 21:40 1 tab Q4H PRN Administration Pain Pantoprazole Sodium 40 mg 07/04/21 09:00 07/07/21 08:57 Pantoprazole 40 Mg Tab PO 08/03/21 08:59 40 mg DAILY BROOKE Administration NPO Date Last Intake of Fluids: 07/07/21 Time Last Intake of Fluids: 23:30 Last Intake of Fluids Comment: sip of h20 with benadryl Date Last Intake of Solids: 07/05/21 Time Last Intake of Solids: 12:00 Past Medical History Medical History TOA (tubo-ovarian abscess) Exercise / Class Metabolic Activity II 4-5 Yardwork/Stairs/Walk up hill Past Anesthesia History No Hx of Anesthesia Complications and No Family Hx of Anesthesia Complications History of PONV No Hx of PONV and No Hx of Motion Sickness Social History Smoking Status: Never smoker Hx Alcohol Use: No Hx Substance Use: No Review of Systems denies fever/cough/ colds/ chest pain/ SOB/ MAYE denies MAYE Physical Exam Vital Signs Last Vital Signs Temp 36.8 C 07/08/21 07:30 Pulse 78 07/08/21 07:30 Resp 18 07/08/21 07:30 BP 155/82 H 07/08/21 07:30 Pulse Ox 96 07/08/21 07:30 ENMT Mouth: no TMJ abnormality and no dentition abnormality Thyromental Distance: > or= 3.5 Finger Breadths Mallampati Class: II Neck neck extension not limited Respiratory normal respiratory effort; no respiratory distress Auscultation: lungs clear to auscultation bilaterally Cardiovascular Rate/Rhythm: regular rate and regular rhythm Neurologic moves all extremities Psychiatric Orientation: alert and oriented x 3 Testing Laboratory Results 07/08/21 06:26 07/08/21 06:26 HCG, Quant 3 mIU/ml 07/04/21 13:10 Urine Color Dark Yellow 07/03/21 Unknown Urine Appearance Cloudy (Clear) A 07/03/21 Unknown Urine pH 5.5 (4.5-7.5) 07/03/21 Unknown Ur Specific [place] 1.031 (1.000-1.030) H 07/03/21 Unknown Urine Protein 3+ (Negative) H 07/03/21 Unknown Urine Glucose (UA) Negative (Negative) 07/03/21 Unknown Urine Ketones Trace (Negative) H 07/03/21 Unknown Urine Nitrite Positive (Negative) A 07/03/21 Unknown Ur Leukocyte Esterase Trace (Negative) H 07/03/21 Unknown Urine WBC (Auto) 10-30 /hpf (0-5) H 07/03/21 Unknown Urine RBC (Auto) 0-4 /hpf (0-4) 07/03/21 Unknown U Hyaline Cast (Auto) 10-30 /lpf (0-5) H 07/03/21 Unknown U Epithel Cells (Auto) >30 /lpf (0-5) H 07/03/21 Unknown Urine Bacteria (Auto) 4+ (Negative) H 07/03/21 Unknown 07/03/21 19:35 Aerobic Blood Culture - Preliminary Blood No growth in Aerobic bottle after 48 hours. Anaerobic Blood Culture - Preliminary No growth in Anaerobic bottle after 48 hours. 07/03/21 19:35 Aerobic Blood Culture - Preliminary Blood No growth in Aerobic bottle after 48 hours. Anaerobic Blood Culture - Preliminary No growth in Anaerobic bottle after 48 hours. 07/03/21 Unknown Urine Culture - Final Urine,Clean Catch Escherichia coli 07/04/21 07/03/21 13:10 Unknown HCG, Quant 3 4
[2021-07-08] MEDS ORDERED: HYDROmorphone INJ 2 MG/ML SYR/VIAL ONE (09:16)
[2021-07-08] MEDS ORDERED: metroNIDAZOLE 500 MG/100 ML BAG IV ONE (09:26)
[2021-07-08] MEDS: levoFLOXacin/D5W 500 MG/100 ML BAG IV ONE ×2 (09:26→13:46)
[2021-07-08] MEDS ORDERED: levoFLOXacin/D5W 500 MG/100 ML BAG IV ONE ×2 (09:30→09:31)
[2021-07-08] MEDS ORDERED: PROPOFOL IV EMULSION 10 MG/ML 20 ML VIAL IV ONE ×2 (09:43→12:50)
[2021-07-08] MEDS ORDERED: DEXAMETHASONE SOD INJ 4 MG/ML VIAL ONE (09:43)
[2021-07-08] MEDS ORDERED: GLYCOPYRROLATE 0.2 MG/ML VIAL ONE (09:43)
[2021-07-08] MEDS ORDERED: ONDANSETRON INJ 2 MG/ML 2 ML VIAL ONE (09:43)
[2021-07-08] MEDS ORDERED: ROCURONIUM BROMIDE 10 MG/ML 5 ML VIAL IV ONE (09:43)
[2021-07-08] MEDS ORDERED: SUCCINYLCHOLINE CHLORIDE 20 MG/ML 10 ML VIAL IV ONE (09:43)
[2021-07-08] MEDS ORDERED: LIDOCAINE 2% 2 ML VIAL/AMP(20MG/ML) INFIL ONE (09:43)
[2021-07-08] MEDS ORDERED: NEOSTIGMINE METHYLSULFATE 1 MG/ML 10ML VIAL ONE (09:43)
[2021-07-08] MEDS ORDERED: LABETALOL HCL IV 5 MG/ML 20ML IV ONE (10:41)
--- NOTE | 2021-07-08 12:03 | Post Operative Brief Note ---
Immediate Post Op Note v1 Date of Surgery July 08, 2021 Pre & Post Diagnosis Operation Date: 07/08/21 08:30 Pre-Op Diagnosis: Tubo-Ovarian Abscess, Small Bowel Obstruction Post-Op Diagnosis: Tubo-Ovarian Abscess, Small Bowel Obstruction I identified the patient and participated in the time-out.: Yes Procedure Operation Date: 07/08/21 08:30 Actual Procedures p Laparotomy, Drainage Right Tubo-Ovarian Abscess(Right) bilateral salpingo- oophorectomy Emmy Lomas MD s Right Hemicolectomy, Primary Repair Sigmoid Serosal Tear(Not Applicable) - Luke Batista DO Surgeon Emmy Lomas MD and Dr Head Inspector [employer] Wafer Dr Hartley and Dr Head Estimated Blood Loss 50 Findings Consistent with Post-Op Diagnosis Drains Coombs Catheter (16 kinyarwanda 10ml balloon inserted by Gloria Flores RN without difficulty; urine output monitored throughout entire case by anesthesia staff) Anesthesia Type General Complications none Disposition Accompanied Patient To Recovery: Yes
--- NOTE | 2021-07-08 12:29 | Post Operative Brief Note ---
PG Immediate Post Op with CF Date of Surgery July 08, 2021 Pre & Post Diagnosis Operation Date: 07/08/21 08:30 Pre-Op Diagnosis: Tubo-Ovarian Abscess, Small Bowel Obstruction Post-Op Diagnosis: Tubo-Ovarian Abscess, Small Bowel Obstruction I identified the patient and participated in the time-out.: No Procedure Operation Date: 07/08/21 08:30 Actual Procedures s Right Hemicolectomy, Partial omentectomy, Primary Repair Sigmoid Serosal Tear, Application of Abthera Wound Vac(Not Applicable) - Luke Batista DO Surgeon Luke Batista DO Tobacco Packer Dr Hartley and Dr. Mino Johns Estimated Blood Loss 50 Findings See Below Right tubo-ovarian abscess with extensive pelvic inflammatory phlegmon causing small bowel obstruction Specimens Specimen Description: Culture #1: Peritoneum Culture#2: Right Adnexal Fluid Permanent Specimen: A. Right Colon and Partial Omentum B.) Left Tube and Left Ovary C.) Right Adnexa Drains Coombs Catheter (16 icelandic 10ml balloon inserted by Gloria Flores RN without difficulty; urine output monitored throughout entire case by anesthesia staff) Anesthesia Type General Complications None Disposition Disposition: Recovery Room
[2021-07-08] MEDS ORDERED: MIDAZOLAM HCL 125MG/250ML D5W ONE (12:33)
--- NOTE | 2021-07-08 12:58 | Operative Report ---
PG Post Operative Report Pre & Post Diagnosis Operation Date: 07/08/21 08:30 Pre-Op Diagnosis: Tubo-Ovarian Abscess, Small Bowel Obstruction Post-Op Diagnosis: Tubo-Ovarian Abscess, Small Bowel Obstruction, Extensive pelvic inflammatory phlegmon I identified the patient and participated in the time-out.: No Procedure Operation Date: 07/08/21 08:30 Actual Procedures s Right Hemicolectomy, Partial omentectomy, Primary Repair Sigmoid Serosal Tear, Application of Abthera Wound Vac(Not Applicable) - Luke Batista DO Surgeon Luke Batista DO New Car Sales Manager Dr Hartley and Dr. Mino Johns Estimated Blood Loss 50 Findings See Below Right tubo-ovarian abscess with extensive pelvic inflammatory phlegmon causing small bowel obstruction Specimens Right colon and omentum to pathology Drains Abthera Wound Vac Anesthesia Type General Complications none Disposition Accompanied Patient To Recovery: Yes Disposition: Surgical ICU Indications 46 yo female with right tubo-ovarian abscess with phlegmon causing small bowel obstruction Description of Procedure I was called into the operating room for a consult by the gynecological surgeons due to extensive phlegmon and bowel adhesed to the right adnexa. There was already a standard lower midline incision. I opened this further cephalad and caudad using a 10 blade scalpel and electrocautery. Upon exploration of the pelvis there was extensive inflammatory phlegmonous change. There was a portion of the terminal ileum that was plastered down to the right adnexa and right pelvic sidewall. This needed to be freed up in order to adequately drain the tubo-ovarian abscess. This was done with a combination of blunt and sharp dissection. Kamran pus was encountered and sent for culture. The abscess was drained in its entirety. After investigating the portion of terminal ileum that was adhesed to the adnexa and pelvic sidewall it was determined the patient would need this area resected. The bowel here looked dusky with multiple serosal tears. Due to its very close proximity to the ileocecal valve, right hemicolectomy was deemed necessary. A healthy portion of terminal ileum was transected using a VIKAS 60 mm purple load stapler. At this time the right colon was mobilized along the white line of Toldt using blunt and sharp dissection. The hepatic flexure was also mobilized. I then transected the transverse colon just proximal to the left branch of the middle colic vessels using a VIKAS 60 mm purple load stapler. I then transected the mesentery using a LigaSure device. The specimen was passed off as right colon. At this time a [id number] ileocolonic anastomosis was fashioned. This was done using a VIKAS 60 mm purple load stapler to form the common channel. The resulting enterotomy was then closed using another fire of the VIKAS 60 mm purple load stapler. The staple line was then reinforced with Lembert sutures. The anastomosis was not under any tension and was widely patent. The mesenteric defect was then closed using a 3-0 Vicryl in a running fashion. At this point our attention was turned to inspecting the sigmoid colon which was also involved in the phlegmon in the pelvis. There was a serosal tear on the medial portion of the sigmoid colon. This was oversewn using 3-0 silk suture in a Lembert fashion. At this time the entire small bowel was run from the ligament of Treitz to our anastomosis and was found to be free of pathology other than having chronic dilation from her small bowel obstruction. At this time the abdomen was irrigated with warm saline until clear. Hemostasis was achieved using electrocautery. Hemostasis was complete. At this time an ABThera wound VAC was placed as a temporary abdominal closure device. I will plan to reexplore the patient in 2 days in order to inspect the sigmoid colon. The patient was left intubated at the end of the procedure and transported to the ICU. She remained hemodynamically stable throughout the entire procedure. Needle and sponge counts were correct x2. I attest to the content of the Intraoperative Record and any orders documented therein. Any exceptions are noted below.
[2021-07-08] MEDS ORDERED: PIPERACILL/TAZOBAC CONSULT ACTIVE PRN (13:09)
[2021-07-08] MEDS ORDERED: PIPERACILLIN/TAZOBACTAM 3.375 GM in DEXTROSE 5% 100 ML IV SCH (13:09)
[2021-07-08 13:14] LABS: Hematocrit (blood only) 38.3 % (37-47); Hemoglobin 12.6 g/dL (12.0-16.0); Mean Corpuscular Hemoglobin 31.4 pg (25-34); Mean Corpuscular Volume 95.5 fL (80-100); Mean Platelet Volume 9.2 fL (7.4-10.4); Platelet Count 467 K/uL (130-400); RDW Coefficient of Variation 13.9 % (11.5-14.5); RDW Standard Deviation 48.7 fL (36.4-46.3); Red Blood Count 4.01 M/uL (4.2-5.4); White Blood Count 22.53 K/uL (4.8-10.8)
[2021-07-08 13:16] LABS: Mean Corpuscular Hgb Conc 32.9 g/dL (32-36)
[2021-07-08 13:25] LABS: INR 1.3 (0.9-1.1); Prothrombin Time 13.3 Seconds (9.0-12.0)
--- NOTE | 2021-07-08 13:30 | XRay Report ---
XR chest 1V portable HISTORY: Endotracheal tube placement. COMPARISON: None. FINDINGS: No pneumothorax. No pleural effusions. The endotracheal tube terminates approximately 5 cm from the abbie. Nasogastric tube terminates in the proximal stomach. No focal lung consolidations to suggest pneumonia. No evidence for pulmonary edema. IMPRESSION: 1. The endotracheal tube terminates 5 cm from the abbie. This could be advanced by approximately 2 c m. 2. Nasogastric tube terminates in the proximal stomach. This could also be advanced by approximately 5 cm. ACT 112: Negative or not required by law. Electronically signed by: Sony Xavier M.D. 07/08/2021 1:29 PM
--- NOTE | 2021-07-08 13:32 | XRay Report ---
KUB HISTORY: OGT placement COMPARISON: Abdomen and pelvis CT 07/07/2021. FINDINGS: Nasogastric tube terminates in the proximal stomach. This should be advanced by approximate ly 5 to 10 cm. Dilated gas-filled loops of small bowel seen within the abdomen. This suggests a posto perative ileus. There are skin hernán within the lower abdomen. There are suture material within the right midabdomen. No renal calculi. No ureteral calculi. No pneumoperitoneum or pneumatosis. IMPRESSION: Nasogastric tube terminates in the proximal stomach. This should be advanced by approximately 5 to 10 cm. ACT 112: Negative or not required by law. Electronically signed by: Sony Xavier M.D. 07/08/2021 1:30 PM
[2021-07-08 13:33] LABS: Albumin Level 1.9 gm/dl (3.4-5.0); Calcium 7.8 mg/dl (8.5-10.1); Creatinine Clr Calc Pharmacy 97.3 ml/min; Est GFR (African American) 119.2 ml/min; Est GFR (Non-African American) 102.9 ml/min; Magnesium 1.5 mg/dl (1.8-2.4); Potassium 4.3 mmol/L (3.5-5.1)
[2021-07-08] MEDS ORDERED: STAT IV Infusion **Titration per Protocol STA (13:36)
[2021-07-08 13:40] LABS: Albumin Globulin Ratio 0.5 (0.9-2); Bilirubin,Total 0.4 mg/dl (0.2-1); Globulin 3.5 gm/dl (2.5-4.0); Total Protein 5.4 gm/dl (6.4-8.2)
[2021-07-08] MEDS: NIFEdipine EXTENDED REL 30 MG TABCR PO SCH (13:45)
[2021-07-08] MEDS: PANTOprazole 40 MG TAB PO SCH (13:46)
[2021-07-08] MEDS: LACTOBACILLUS ACIDOPHILUS 1 GM PACK PO SCH ×2 (13:49→13:50)
[2021-07-08] MEDS: fentaNYL DRIP 1,250 MCG/250 ML BAG IV SCH ×3 (13:53→22:34)
[2021-07-08] MEDS: MIDAZOLAM HCL 125 MG/250 ML BAG IV PRN (13:56)
[2021-07-08] MEDS ORDERED: PIPERACILLIN/TAZOBACTAM 3.375 GM in DEXTROSE 5% 100 ML IV ONE (14:00)
[2021-07-08] MEDS: SODIUM CHLORIDE 0.9% 1000ML 1,000 ML IV SCH (14:02)
[2021-07-08 14:05] LABS: Basophils # (auto) 0.03 K/uL (0-0.2); Basophils % (auto) 0.1 %; Eosinophils # (auto) 0.02 K/uL (0-0.5); Eosinophils % (auto) 0.1 %; Immature Granulocytes # (auto) 0.89 K/uL (0.00-0.02); Lymphocytes # (auto) 0.62 K/uL (1.2-3.4); Lymphocytes % (auto) 2.8 %; Monocytes # (auto) 0.64 K/uL (0.11-0.59); Monocytes % (auto) 2.8 %; Neutrophils # (auto) 20.33 K/uL (1.4-6.5); Neutrophils % (auto) 90.2 %; Toxic Vacuolation 1+
--- NOTE | 2021-07-08 14:15 | Critical Care Consultation ---
Date of Consultation July 08, 2021 Assessment & Plan (1) Small bowel obstruction: Reason Critically Ill: 46-year-old female with an open abdomen transferred to the ICU for postoperative management PLAN: Neuro: Sedation on the heavier side with liberal pain medication -Tolerating fentanyl infusion and Versed we will add propofol consider Dilaudid for additional breakthrough pain Resp: Postoperative respiratory insufficiency -Consideration given to extubation, attempting to achieve better pain control -Concerned over airway patency and adequate analgesia Fluids/Renal: Hypomagnesemia -Replace per electrolyte protocol Hypocalcemia -Replace per electrolyte protocol ID: Tubo-ovarian abscess -On Zosyn IV GI/Nutrition: Small bowel obstruction -Low intermittent suction of OG tube -Reinitiate PPI for probable greater than 24 hours mechanical ventilation Heme: Leukocytosis -Secondary to TOA DVT prophylaxis: SCDs Endocrine: ICU hyperglycemia protocol Vascular access: Peripheral IVs Code Status: Full code Disposition: ICU (2) TOA (tubo-ovarian abscess): Supervising Physician Co-Signing Physician Notes I have personally spent 45 minutes of critical care time in the direct management of this patient. This is a life/limb threatening event. This includes time spent evaluating patient, direct bedside care, chart review, placing orders, interpretation of diagnostic studies, discussion with consultants, patient, and/or family members regarding treatment decisions, as well as other required patient management activities. This time is exclusive of all separately billable procedures, and teaching time and separate from and in addition to any other critical care service time. History of Present Illness Reason for Consultation: Postoperative management Attending Physician: Randall Hartley MD History of Present Illness Patient is a 46-year-old female with progressive worsening of a right tubo- ovarian abscess who went to the operating room for exploratory laparotomy. Patient had progression of her disease process into a small bowel obstruction secondary to the space occupying lesion of the tubo-ovarian abscess. In the operating room she underwent a right hemicolectomy, partial omentectomy, primary repair of a sigmoid serosal tear. It was felt that given the amount of swelling primary closure would be ill advised and a wound VAC was placed and she was transferred for the ICU for continued medical management with plans to return in 24 to 48 hours for additional washout and possible closure at that time. Allergies Allergy/AdvReac Type Severity Reaction Status Date / Time No Known Allergies Allergy Unverified 07/03/21 15:30 Home Medications Medication Instructions Recorded Confirmed Type omeprazole 20 mg capsule,delayed 20 mg PO DAILY 07/03/21 07/04/21 History release ibuprofen 600 mg tablet 600 mg PO TID 07/04/21 07/04/21 History Patient History Medical History (Updated 07/14/21 @ 12:24 by Tressa Renner, DO) Anemia GERD (gastroesophageal reflux disease) TOA (tubo-ovarian abscess) Surgical History (Updated 07/14/21 @ 07:31 by Winston Stern MD, FACS) H/O exploratory laparotomy (07/10/21) Reexploration Abdominal Laparotomy, Abdominal Washout, Abdominal Wall Closure Dr. Batista 07/10/2021 H/O right hemicolectomy (07/08/21) grade 1 view with Mac 3 blade Right Hemicolectomy, Partial omentectomy, Primary Repair Sigmoid Serosal Tear, Application of Abthera Wound Vac Dr. Batista 07-08-2021 Social History Smoking Status: Never smoker Second Hand Exposure: No; Hx Alcohol Use: No Hx Substance Use: No Preferred Language: Nepali Communication Ability: Unable Inspector Toys Required: No Beliefs That Will Affect Care: None Current Living Situation: Family Feels Safe at Home: Yes Safety Concerns: Feels Safe At This Time Assistive Devices: None Physical Exam Physical Exam: General: Sedated but arouses with minimal tactile stimuli. nontoxic. Skin: Warm, dry, Head: Atraumatic Ears, nose, mouth and throat: airway obscured by endotracheal tube Cardiovascular: Normal peripheral perfusion Respiratory: no respiratory distress Gastrointestinal: Non distended, wound VAC in place functioning appropriately Musculoskeletal: No deformity, moves all 4 extremities Results & Data Results & Data ([facility]) Vital Signs (Past 12 Hours) Vital Signs Temp Pulse Pulse Pulse Resp BP BP 07/08/21 13:21 77 112/71 07/08/21 13:11 84 123/75 07/08/21 13:01 79 121/77 07/08/21 13:00 36.7 C 88 16 121/77 07/08/21 12:55 84 16 111/78 07/08/21 12:50 87 16 07/08/21 12:45 87 18 124/79 07/08/21 12:40 80 16 121/77 07/08/21 12:35 36.6 C 78 16 118/75 07/08/21 07:30 36.8 C 78 18 155/82 H 07/08/21 03:45 36.9 C 85 20 122/82 Pulse Ox 07/08/21 13:21 98 07/08/21 13:11 99 07/08/21 13:01 99 07/08/21 13:00 99 07/08/21 12:55 98 07/08/21 12:50 100 07/08/21 12:45 99 07/08/21 12:40 100 07/08/21 12:35 100 07/08/21 07:30 96 07/08/21 03:45 95 Laboratory Results 07/08/21 07/08/21 07/08/21 Range/Units 12:54 12:54 12:54 WBC (4.8-10.8) K/uL RBC (4.2-5.4) M/uL Hgb (12.0-16.0) g/dL Hct (37-47) % MCV (80-100) fL MCH (25-34) pg MCHC (32-36) g/dL RDW Std Deviation (36.4-46.3) fL RDW Coeff of Baljeet (11.5-14.5) % Plt Count (130-400) K/uL MPV (7.4-10.4) fL Immature Gran % (Auto) % Neut % (Auto) % Lymph % (Auto) % [place] % (Auto) % Eos % (Auto) % Baso % (Auto) % Neut # (Auto) (1.4-6.5) K/uL Lymph # (Auto) (1.2-3.4) K/uL [place] # (Auto) (0.11-0.59) K/uL Eos # (Auto) (0-0.5) K/uL Baso # (Auto) (0-0.2) K/uL Immature Gran # (Auto) (0.00-0.02) K/uL Toxic Vacuolation PT 13.3 H (9.0-12.0) Seconds INR 1.3 H (0.9-1.1) Sodium 140 (136-145) mmol/L Potassium 4.3 (3.5-5.1) mmol/L Chloride 104 (98-107) mmol/L Carbon Dioxide 27 (21-32) mmol/L Anion Gap 9.0 (3-11) BUN 10 (7-18) mg/dl Creatinine 0.71 (0.6-1.2) mg/dl Est Cr Clr Drug Dosing 97.3 ml/min Est GFR ( Amer) 119.2 ml/min Est GFR (Non-Af Amer) 102.9 ml/min BUN/Creatinine Ratio 14.0 (10-20) Glucose 186 H (70-99) mg/dl Calcium 7.8 L D (8.5-10.1) mg/dl Ionized Calcium 1.07 L (1.12-1.32) mmol/L Magnesium 1.5 L (1.8-2.4) mg/dl Total Bilirubin 0.4 (0.2-1) mg/dl AST 56 H (15-37) U/L ALT 60 (12-78) U/L Alkaline Phosphatase 64 (45-117) U/L Total Protein 5.4 L D (6.4-8.2) gm/dl Albumin 1.9 L (3.4-5.0) gm/dl Globulin 3.5 (2.5-4.0) gm/dl Albumin/Globulin Ratio 0.5 L (0.9-2) 07/08/21 07/08/21 07/08/21 Range/Units 12:54 06:26 06:26 WBC 22.53 H 16.96 H (4.8-10.8) K/uL RBC 4.01 L 3.93 L (4.2-5.4) M/uL Hgb 12.6 12.4 (12.0-16.0) g/dL Hct 38.3 37.6 (37-47) % MCV 95.5 95.7 (80-100) fL MCH 31.4 31.6 (25-34) pg MCHC 32.9 33.0 (32-36) g/dL RDW Std Deviation 48.7 H 48.9 H (36.4-46.3) fL RDW Coeff of Baljeet 13.9 13.9 (11.5-14.5) % Plt Count 467 H 509 H (130-400) K/uL MPV 9.2 9.1 (7.4-10.4) fL Immature Gran % (Auto) 4.0 % Neut % (Auto) 90.2 % Lymph % (Auto) 2.8 % [place] % (Auto) 2.8 % Eos % (Auto) 0.1 % Baso % (Auto) 0.1 % Neut # (Auto) 20.33 H (1.4-6.5) K/uL Lymph # (Auto) 0.62 L (1.2-3.4) K/uL [place] # (Auto) 0.64 H (0.11-0.59) K/uL Eos # (Auto) 0.02 (0-0.5) K/uL Baso # (Auto) 0.03 (0-0.2) K/uL Immature Gran # (Auto) 0.89 H (0.00-0.02) K/uL Toxic Vacuolation 1+ PT (9.0-12.0) Seconds INR (0.9-1.1) Sodium 136 (136-145) mmol/L Potassium 4.0 (3.5-5.1) mmol/L Chloride 104 (98-107) mmol/L Carbon Dioxide 26 (21-32) mmol/L Anion Gap 7.0 (3-11) BUN 6 L (7-18) mg/dl Creatinine 0.64 (0.6-1.2) mg/dl Est Cr Clr Drug Dosing 107.9 ml/min Est GFR ( Amer) 124.9 ml/min Est GFR (Non-Af Amer) 107.8 ml/min BUN/Creatinine Ratio 10.0 (10-20) Glucose 113 H (70-99) mg/dl Calcium 9.2 (8.5-10.1) mg/dl Ionized Calcium (1.12-1.32) mmol/L Magnesium 2.1 (1.8-2.4) mg/dl Total Bilirubin (0.2-1) mg/dl AST (15-37) U/L ALT (12-78) U/L Alkaline Phosphatase (45-117) U/L Total Protein (6.4-8.2) gm/dl Albumin (3.4-5.0) gm/dl Globulin (2.5-4.0) gm/dl Albumin/Globulin Ratio (0.9-2) Coding Level of Care Code Critical Care 1st 30-74 mins Diagnoses Small bowel obstruction K56.609 TOA (tubo-ovarian abscess) N70.93
--- NOTE | 2021-07-08 14:18 | Anesthesiology Progress Note ---
Date of Service July 08, 2021 Anesthesia Post Procedure Vital Signs Vital Signs: Temp Pulse Pulse Pulse Resp BP BP 07/08/21 13:21 77 112/71 07/08/21 13:11 84 123/75 07/08/21 13:01 79 121/77 07/08/21 13:00 36.7 C 88 16 121/77 07/08/21 12:55 84 16 111/78 07/08/21 12:50 87 16 07/08/21 12:45 87 18 124/79 07/08/21 12:40 80 16 121/77 07/08/21 12:35 36.6 C 78 16 118/75 07/08/21 07:30 36.8 C 78 18 155/82 H 07/08/21 03:45 36.9 C 85 20 122/82 07/07/21 23:30 37 C 82 18 134/83 07/07/21 19:45 36.9 C 88 18 127/88 07/07/21 16:00 36.9 C 83 18 132/78 Pulse Ox 07/08/21 13:21 98 07/08/21 13:11 99 07/08/21 13:01 99 07/08/21 13:00 99 07/08/21 12:55 98 07/08/21 12:50 100 07/08/21 12:45 99 07/08/21 12:40 100 07/08/21 12:35 100 07/08/21 07:30 96 07/08/21 03:45 95 07/07/21 23:30 97 07/07/21 19:45 97 07/07/21 16:00 98 Pain Intensity Lower Abdomen: Pain Intensity: 0 Transfer of Care Handoff Completed per policy Notes Mental Status: see notes below (intubated and sedated) Patient Amnestic to Procedure: Yes Nausea / Vomiting: adequately controlled Pain: adequately controlled Airway Patency, RR, SpO2: stable & adequate BP & HR: stable & adequate Hydration State: stable & adequate Anesthetic Complications: no major complications apparent and Pt Satisfied with anesthetic care Notes: pt kept intubated because of temporary abdominal closure
[2021-07-08] MEDS ORDERED: CALCIUM GLUCONATE 10% 1,000 MG in SODIUM CHLORIDE 0.9% 50 ML IV ONE (14:30)
--- NOTE | 2021-07-08 14:44 | Hospitalist Progress Note ---
Date of Service July 08, 2021 Assessment & Plan (1) TOA (tubo-ovarian abscess): Plan: Sepsis-POA Tubo-ovarian abscess -CT ABD:Tubular hypoattenuating lesions with septation, mucosal enhancement and thickening as well as surrounding edema could represent pyosalpinx/tubo-ovarian abscess. Further CHILD HEALTH ASSOCIATE evaluation and possible pelvic ultrasound might be considered. Diverticulosis of sigmoid colon colon is seen with mild surrounding fat stranding which might represent reactive changes due to close proximity a dose of pelvic inflammatory process versus developing diverticulitis which is less likely. -Transvaginal USD:Complex multiloculated collection within the superior right adnexa, adjacent to the right ovary and superior aspect of the uterus extending to the midline. This corresponds to the collection shown on CT. Measurements difficult to obtain by sonography however the largest component measures approximately 6 x 4 cm. This is suggestive of a tubo-ovarian abscess. -Blood Cx: Negative to date -Serology for chlamydia, Neisseria negative -S/P laparotomy, drainage of right tubo-ovarian abscess, bilateral salpingo- oophorectomy POD #0 -Received IV fluids -IV clindamycin and gentamicin, transition to Levaquin, Flagyl>>>Zosyn Appreciate FORESTRY TREE PRUNER input Follow-up peritoneal fluid cultures Small bowel obstruction Extensive pelvic inflammatory phlegmon CT ABD:Interval development of a small bowel obstruction with transition point within the abdominal right lower quadrant adjacent to the abscess. -S/P right hemicolectomy, omentectomy, sigmoid serosal tear repair POD #0 Appreciate surgery help Continue wound Vac Plan for staged procedure likely on Friday Continue IV fluids (2) Positive test: Plan: Initial hcg is positive, hcg quant of 3 Pelvic ultrasound without intrauterine gestational sac. (3) Hypertension: Plan: BP initially elevated Monitor (4) Hypomagnesemia: Plan: Replace as needed (5) Hypokalemia: Plan: Replace electrolytes as needed (6) UTI (urinary tract infection): Plan: Urine Cx growing smith sensitive E coli IV cefoxitin, Levaquin>> zosyn Diarrhea stool for c diff Negative DVT Px: Teds, scds Disposition: Per primary service Admission and Anticipated Discharge Date Admission Date: July 03, 2021 Subjective Patient is seen and examined at bedside Currently intubated and sedated Had right hemicolectomy, omentectomy, sigmoid serosal tear repair today Review of Systems Review of Systems: Unobtainable due to endotracheal tube Physical Exam Physical Exam: Physical Exam: Vitals signs as noted above General Appearance:Moderately built and nourished, no apparent distress, +Intubated Head: normocephalic, Atraumatic Eyes: normal inspection, EOMI Neck: supple, Trachea midline Respiratory/Chest: Normal breath sounds, CTA Cardiovascular: S1, S2, No murmur Abdomen/GI:Soft, + Surgical wound, Wound Vac Extremities/Musculoskeletal:normal inspection, no edema Neurologic/Psych:AAOX3, grossly no focal neurological deficits Skin: normal color, warm Results & Data Results & Data ([facility]) Vital Signs (Past 12 Hours) Vital Signs Temp Pulse Pulse Pulse Resp BP BP 07/08/21 13:21 77 112/71 07/08/21 13:11 84 123/75 07/08/21 13:01 79 121/77 07/08/21 13:00 36.7 C 88 16 121/77 07/08/21 12:55 84 16 111/78 07/08/21 12:50 87 16 07/08/21 12:45 87 18 124/79 07/08/21 12:40 80 16 121/77 07/08/21 12:35 36.6 C 78 16 118/75 07/08/21 07:30 36.8 C 78 18 155/82 H 07/08/21 03:45 36.9 C 85 20 122/82 Pulse Ox 07/08/21 13:21 98 07/08/21 13:11 99 07/08/21 13:01 99 07/08/21 13:00 99 07/08/21 12:55 98 07/08/21 12:50 100 07/08/21 12:45 99 07/08/21 12:40 100 07/08/21 12:35 100 07/08/21 07:30 96 07/08/21 03:45 95
[2021-07-08] MEDS: HYDROmorphone INJ 2 MG/ML SYR/VIAL IV PRN ×4 (14:54→23:40)
[2021-07-08] MEDS: MAGNESIUM SULFATE / D5W 1 GM/100 ML BAG IV SCH ×2 (15:06→16:50)
[2021-07-08] MEDS: LANSOPRAZOLE 30 MG SOLTAB PO SCH (16:14)
[2021-07-08] MEDS: ICU ELECTROLYTE REPLACEMENT PROTOCOL SCH (16:14)
[2021-07-08] MEDS: PIPERACILLIN/TAZOBACTAM 3.375 GM in DEXTROSE 5% 100 ML IV SCH (18:41)
[2021-07-08] MEDS: MIDAZOLAM BOLUS FROM BAG IV PRN ×2 (18:54→20:35)
--- NOTE | 2021-07-08 23:01 | Operative Report (OR) ---
DATE OF SURGERY: 07/08/2021. PREOPERATIVE DIAGNOSES: The patient is a 46-year-old G3, P3 female with large right tubo-ovarian abscess, not improving with IV antibiotics and small bowel obstruction. POSTOPERATIVE DIAGNOSES: The patient is a 46-year-old G3, P3 female with large right tubo-ovarian abscess, not improving with IV antibiotics and small bowel obstruction. Extensive adhesion, inflammation of ileum, transverse colon and sigmoid colon. PROCEDURE: Laparotomy, lysis of adhesions, drainage of right tubo-ovarian abscess, bilateral salpingo-oophorectomy by Sodium Chlorite Operator team and assistance for general surgeon, Dr. Batista for right hemicolectomy, primary repair of sigmoid serosal tear. See dictated his note for details. SURGEON: Emmy Lomas MD MEMBERSHIP MANAGER: Randall Hartley MD. and and Dr. Batista ESTIMATED BLOOD LOSS: 50 mL. DRAINS: Coombs catheter drained clear urine. ANESTHESIA: General, Dr Bhagat. COMPLICATIONS: None. DESCRIPTION OF FINDINGS: Uterus was in the midline. The fundus appeared to be normal and the posterior serosa of the uterus, cul-de-sac was densely adhered to the sigmoid colon. There were a lot of adhesions and inflammation on the right adnexa posterior to the uterus. The abscess was about 10 x 7 cm. Unable to visualize right ovary completely. Right fallopian tube wwas involved in abscess. Normal left fallopian tube and papillary lesions on left ovary. See dictated operative note from Dr. Batista about the ileum and colon. DESCRIPTION OF PROCEDURE: The patient was taken to the operating room where general anesthesia was given without difficulty. She was placed in dorsal supine position. Her vagina was prepped. Coombs was inserted. She was prepared and draped in the usual sterile fashion. A midline vertical incision was made between the umbilicus and the suprapubic area and then the fascia was incised in the midline. Incision was extended superiorly and inferiorly with the tip of Bovie. Rectus muscles were in the midline. Peritoneum was identified, grasped with 2 pickups, entered sharply with Metzenbaum scissors. We came across with abundant clear fluid from the abdominal cavity and those were suctioned. The incision was extended superiorly and inferiorly with good visualization of the bladder and then the dilated loops of small bowel came out. Those were pushed back with moist sponges. The uterus was identified in the pelvis, grasped with a tenaculum and brought up to the midline. Intestines were packed with moist sponges. The an O'Dennis-O'Celeste abdominal wall retractor was placed to retract the abdominal wall. The right adnexa was felt to be dilated and firm with the scarring and inflammation including the 10x8 cm abscess. The sigmoid colon was found to be attached to the area including some loops of ileum, and right ovary or tube were not definitely identifiable. Left tube was normal. Left ovary looked small. There were some papillary growth on the surface with unknown etiology Cultures were obtained from pelvic and around the abscess. To dissect and free bowels from adnexa, general surgeon, Dr Head was called into the operating room. While dissecting the bowel from the posterior uterus and cul-de-sac, the abscess was spontaneously punctured and the pus drainage was cultured and then it was suctioned and irrigated. The abscess wall was indurated, firm with extensive inflammation. For the rest of surgery, See dictated note from Dr. Batista who performed and right hemicolectomy and partial repeair of sigmoid serosal tear. We have assisted him for the rest of surgery. The abdomen and pelvis were irrigated copiously with warm normal saline and suctioned. He then closed the abdomen temporarily with sponges and covered with sterile dressings. During surgery the patient's vital signs were stable, afebrile. Urine output was adequate. She was taken to ICU in stable condition. I was, Dr. Batista and Dr. Hartley were present during whole procedure. Job ID: [id number] [facility]
[2021-07-09] MEDS: fentaNYL DRIP 1,250 MCG/250 ML BAG IV SCH ×5 (01:48→17:44)
[2021-07-09] MEDS: MIDAZOLAM HCL 125 MG/250 ML BAG IV PRN ×2 (01:48→16:52)
[2021-07-09] MEDS: PIPERACILLIN/TAZOBACTAM 3.375 GM in DEXTROSE 5% 100 ML IV SCH ×3 (02:30→17:23)
[2021-07-09] MEDS: HYDROmorphone INJ 2 MG/ML SYR/VIAL IV PRN ×5 (02:32→16:24)
[2021-07-09 04:54] LABS: Basophils # (auto) 0.02 K/uL (0-0.2); Basophils % (auto) 0.1 %; Eosinophils # (auto) 0.02 K/uL (0-0.5); Eosinophils % (auto) 0.1 %; Hematocrit (blood only) 33.4 % (37-47); Hemoglobin 11.2 g/dL (12.0-16.0); Immature Granulocytes % (auto) 3.7 %; Lymphocytes # (auto) 1.54 K/uL (1.2-3.4); Lymphocytes % (auto) 8.1 %; Mean Corpuscular Hemoglobin 31.7 pg (25-34); Mean Corpuscular Hgb Conc 33.5 g/dL (32-36); Mean Corpuscular Volume 94.6 fL (80-100); Mean Platelet Volume 9.2 fL (7.4-10.4); Monocytes # (auto) 1.13 K/uL (0.11-0.59); Neutrophils # (auto) 15.55 K/uL (1.4-6.5); Platelet Count 476 K/uL (130-400); RDW Coefficient of Variation 14.1 % (11.5-14.5); RDW Standard Deviation 48.6 fL (36.4-46.3); Red Blood Count 3.53 M/uL (4.2-5.4); White Blood Count 18.96 K/uL (4.8-10.8)
[2021-07-09 05:09] LABS: iSTAT Art Bld Gas pCO2 Correct 39 mmHg (35-46); iSTAT Art Bld Gas pH Corrected 7.458 (7.35-7.45); iSTAT Arterial Blood Gas HCO3 28 meg/L (19-24); iSTAT Arterial Blood Gas pCO2 39 mmHg (35-46); iSTAT Arterial Blood Gas pH 7.45 (7.35-7.45); iSTAT Arterial Blood Gas pO2 103 mmHg (80-95); iSTAT Arterial Blood Gas pO2 C 101; iSTAT Carbon Dioxide 29 mmol/L (24-31); iSTAT FiO2 30 %; iSTAT Hematocrit 30 % (37-47); iSTAT Hemoglobin 10.2 g/dl (12.0-16.0); iSTAT Potassium 4.3 mmol/L (3.3-5.0); iSTAT Site R Brachial; iSTAT Sodium 137 mmol/L (135-144)
[2021-07-09 05:09] LABS: BUN Creatinine Ratio 14.9 (10-20); Calcium 7.6 mg/dl (8.5-10.1); Est GFR (African American) 117.2 ml/min; Est GFR (Non-African American) 101.1 ml/min; Magnesium 2.5 mg/dl (1.8-2.4); Potassium 4.5 mmol/L (3.5-5.1)
[2021-07-09 05:10] LABS: Phosphorus 3.4 mg/dl (2.5-4.9)
[2021-07-09] MEDS: ICU ELECTROLYTE REPLACEMENT PROTOCOL SCH ×2 (05:23→08:57)
[2021-07-09] MEDS: SODIUM CHLORIDE 0.9% 1000ML 1,000 ML IV SCH ×3 (07:02→17:46)
--- NOTE | 2021-07-09 08:04 | Critical Care Progress Note ---
Date of Service July 09, 2021 Assessment & Plan (1) TOA (tubo-ovarian abscess): Plan: Assessment: 46yo female presented on 07/04 with a ten-day history of abdominal pain, found with TOA. Went to OR on 07/08 for ex lap, progressed to SBO, required right hemicolectomy, partial omentectomy, primary repair of sigmoidal serosal tear. Currently with open abdomen, wound vac placed. Currently admitted to the ICU for postoperative management. Critical care indication: need for mechanical ventilation, risk of life- threatening complications s/p abdominal surgery, current open abdomen 24-hour events: went to OR on 07/08 for ex lap, progressed to SBO, required right hemicolectomy, partial omentectomy, primary repair of sigmoidal serosal tear. Currently with open abdomen, wound vac placed and functioning appropriately. Plan: return to OR likely on 07/10 for reevaluation of surgical wound, reapproximation of abdominal wound Neurologic CAM ICU negative Sedation: fentanyl, midazolam Analgesia: dilauded Continue with sedation and analgesia as above, wean as tolerated Cardiac BP stable at this time, not requiring pressors Continue cardiac monitoring Respiratory No prior history of respiratory disease Intubated for postoperative respiratory insufficiency; consideration given to extubation, attempting to achieve better pain control; concerned over airway patency and adequate analgesia Continue mechanical ventilation for now Tidal volumes decreased to maintain a lung-protective ventilation strategy Gastrointestinal Diet: NPO Patient with SBO s/p ex lap with right hemicolectomy Low intermittent suction of OG tube PPI restarted given mechanical ventilation >24hr Renal/electrolytes Hypocalcemia: given 1g repletion yesterday, will give another 1g today Hypomagnesemia: repleted, now mildly hypermagnesemic to 2.5 No MONIKA at this time Continue NSS at 75mL/hr Trend daily BMP Genitourinary No concerns at this time Coombs catheter draining normal-appearing urine at this time Strict I/O's Endocrine BSG stable ICU hypoglycemia protocol Hematologic Patient with mild new anemia to 11.2 Follow daily CBC Blood type: Infectious disease TOA: continue zosyn Leukocytosis improved from 22.5 to 19.0 Nasal MRSA swab negative (07/08) Monitor fever curve Integumentary No concerns at this time Lines/access PIVs intact Prophylaxis DVT ppx: SCDs GI ppx: pantoprazole Thank you the opportunity to participate in this patient's care. Please refer to Dr. Cortez's documentation for further recommendations. Admission and Anticipated Discharge Date Admission Date: July 03, 2021 Supervising Physician Co-Signing Physician Notes Patient seen and examined with resident physician. I agree with his assessment and plan aside for any additions/exceptions noted: Status post surgery for tubo-ovarian abscess. Patient currently intubated and mechanically ventilated as per general surgery recommendations. Continue Versed and fentanyl to achieve analgesia given her open surgical abdomen. She is set to undergo repeat repeat surgical evaluation in the operating room tomorrow for exploratory laparotomy, possible bowel resection, possible ostomy placement and closure. Wound VAC is currently in place. No hemodynamic issues. I decreased her tidal volumes in an effort to maintain a lung protective ventilation strategy. Mild episodic hypoxemia today. Repeat chest x-ray with minimal atelectasis. If hypoxemia continues to worsen, will increase PEEP. Physical exam: Constitutional: Patient appears to be of their stated age. She is mechanically ventilated. Eyes: Pupils are equal round and reactive to light. Conjunctivae are normal. Anicteric sclera. Ears nose, mouth and throat: Intubated. Endotracheal tube in place. Neck: Trachea is midline. Visual inspection is normal. Respiratory: Clear to auscultation bilaterally. No use of accessory muscles. No significant clubbing noted. Cardiovascular: Regular rate and rhythm. No murmurs. No edema. Gastrointestinal: Wound VAC noted in place. Mild tenderness to palpation. Musculoskeletal: No cyanosis. Patient is able to move all extremities. Skin: No rashes Neurologic: Follows commands despite sedation. Psychiatric: Alert and oriented x3 with a euthymic affect. Subjective Patient seen and evaluated at bedside this morning. Patient remains intubated and mechanically ventilated. This morning, patient open her eyes spontaneously and appropriately shakes her head in response to questions. Mild abdominal tenderness but otherwise appears relatively comfortable this morning. Review of Systems Review of Systems: Unobtainable due to endotracheal tube Physical Exam Physical Exam: Constitutional: sedated but relatively comfortable-appearing, laying in bed, mechanically ventilated, responsive to verbal and tactile stimuli HEENT: NCAT, no conjunctival injection, intubated CV: regular rhythm, no murmur appreciated, extremities well-perfused, no LE edema Resp: intubated and mechanically ventilated, good air movement, lung sounds clear GI: soft, nondistended, nonrigid, wound vac in place, mild tenderness to palpation, BS present MSK: SCDs in place Skin: warm, dry, no rash appreciated Neuro: sedated and mechanically ventilated, opens eyes to voice, answers questions appropriately with nodding Results & Data Results & Data ([facility]) Vital Signs (Past 12 Hours) Vital Signs Temp Pulse Resp BP Pulse Ox 07/09/21 06:05 85 128/80 98 07/09/21 05:04 79 108/63 98 07/09/21 04:04 36.8 C 69 93/58 L 98 07/09/21 03:36 16 07/09/21 03:04 67 101/63 100 07/09/21 02:04 65 100/63 99 07/09/21 01:04 69 92/58 L 98 07/09/21 00:04 75 89/56 L 91 07/09/21 00:00 83 07/08/21 23:47 16 07/08/21 23:04 37 C 67 116/69 99 07/08/21 22:04 67 97/61 L 99 07/08/21 21:04 67 97/61 L 98 07/08/21 20:22 36.8 C 65 94/60 L 99 Resident Activity Tracking Resident Involvement: Resident Care Provided Care Provided: Adult Hospital Medicine
[2021-07-09] MEDS: LANSOPRAZOLE 30 MG SOLTAB PO SCH (09:24)
[2021-07-09] MEDS: MIDAZOLAM BOLUS FROM BAG IV PRN (10:43)
[2021-07-09] MEDS ORDERED: CALCIUM GLUCONATE 10% 1,000 MG in SODIUM CHLORIDE 0.9% 50 ML IV ONE (11:30)
--- NOTE | 2021-07-09 11:37 | Billing Data ---
Date of Service July 09, 2021 Coding Level of Care Code 95728 Subseq Hosp Care Lvl 3
--- NOTE | 2021-07-09 12:21 | Surgery Progress Note ---
Date of Service July 09, 2021 Assessment & Plan (1) TOA (tubo-ovarian abscess): Plan: -Continue mechanical ventilation with sedation -Follow vitals, favor fluids over pressors if needed -Plan to return to OR tomorrow for exploratory laparotomy, possible bowel re section, possible ostomy, possible closure (2) Small bowel obstruction: Admission and Anticipated Discharge Date Admission Date: July 03, 2021 Subjective Pt seen and examined. Sedated and intubated. Follows commands. No acute events overnight. Afebrile. Physical Exam Gastrointestinal (Abdomen): Abdomen with wound vac in place, appropriately TTP, Results & Data ([facility]) Vital Signs (Past 12 Hours) Vital Signs Temp Pulse Resp BP Pulse Ox 07/09/21 12:00 67 90/56 L 99 07/09/21 11:31 36.8 C 67 93/56 L 99 07/09/21 11:02 70 16 99 07/09/21 11:00 67 99 07/09/21 10:16 79 109/74 99 07/09/21 10:00 70 99 07/09/21 09:00 72 111/68 99 07/09/21 08:04 64 93/57 L 99 07/09/21 08:00 36.8 C 07/09/21 07:24 71 16 99 07/09/21 07:04 70 93/58 L 99 07/09/21 06:05 85 128/80 98 07/09/21 05:04 79 108/63 98 07/09/21 04:04 36.8 C 69 93/58 L 98 07/09/21 03:36 16 07/09/21 03:04 67 101/63 100 07/09/21 02:04 65 100/63 99 07/09/21 01:04 69 92/58 L 98 PG Care Time/CCT Total # of Minutes Spent Total Time Spent with Patient: Total time spent is greater than 50% in coordination of care (as documented) at patient's floor/unit and/or counseling patient: Coding Level of Care Code None Diagnoses TOA (tubo-ovarian abscess) N70.93 Small bowel obstruction K56.609
--- NOTE | 2021-07-09 15:08 | Hospitalist Progress Note ---
Date of Service July 09, 2021 Assessment & Plan (1) TOA (tubo-ovarian abscess): Plan: Sepsis-POA Tubo-ovarian abscess -CT ABD:Tubular hypoattenuating lesions with septation, mucosal enhancement and thickening as well as surrounding edema could represent pyosalpinx/tubo-ovarian abscess. Further LABORATORY IMMUNOLOGIST evaluation and possible pelvic ultrasound might be considered. Diverticulosis of sigmoid colon colon is seen with mild surrounding fat stranding which might represent reactive changes due to close proximity a dose of pelvic inflammatory process versus developing diverticulitis which is less likely. -Transvaginal USD:Complex multiloculated collection within the superior right adnexa, adjacent to the right ovary and superior aspect of the uterus extending to the midline. This corresponds to the collection shown on CT. Measurements difficult to obtain by sonography however the largest component measures approximately 6 x 4 cm. This is suggestive of a tubo-ovarian abscess. -Blood Cx: Negative to date -Serology for chlamydia, Neisseria negative -S/P laparotomy, drainage of right tubo-ovarian abscess, bilateral salpingo- oophorectomy POD #0 -Received IV fluids -IV clindamycin and gentamicin, transition to Levaquin, Flagyl>>>Zosyn Appreciate SIMULATION ANALYST input Peritoneal fluid cultures- Negative to date Persistent leukocytosis Abdominal wound growing alpha strep Plan for exploratory laparotomy tomorrow Small bowel obstruction Extensive pelvic inflammatory phlegmon CT ABD:Interval development of a small bowel obstruction with transition point within the abdominal right lower quadrant adjacent to the abscess. -S/P right hemicolectomy, omentectomy, sigmoid serosal tear repair POD #0 Appreciate surgery help Continue wound Vac Plan for exploratory laparotomy tomorrow (2) Positive test: Plan: Initial hcg is positive, hcg quant of 3 Pelvic ultrasound without intrauterine gestational sac. (3) Hypertension: Plan: BP initially elevated BP stable today Monitor (4) Hypomagnesemia: Plan: Replace as needed (5) Hypokalemia: Plan: Replace electrolytes as needed (6) UTI (urinary tract infection): Plan: Urine Cx growing smith sensitive E coli IV cefoxitin, Levaquin>> zosyn Diarrhea stool for c diff Negative DVT Px: Teds, scds Disposition: Per primary service Admission and Anticipated Discharge Date Admission Date: July 03, 2021 Subjective Patient is seen and examined at bedside Currently intubated and sedated Afebrile today Plan for tomorrow for exploratory laparotomy Review of Systems Review of Systems: All systems reviewed & are unremarkable except as noted in Subjective Physical Exam Physical Exam: Physical Exam: Vitals signs as noted above General Appearance:Moderately built and nourished, no apparent distress, +Intubated Head: normocephalic, Atraumatic Eyes: normal inspection, EOMI Neck: supple, Trachea midline Respiratory/Chest: Normal breath sounds, CTA Cardiovascular: S1, S2, No murmur Abdomen/GI:Soft, + Surgical wound, Wound Vac Extremities/Musculoskeletal:normal inspection, no edema Neurologic/Psych:AAOX3, grossly no focal neurological deficits Skin: normal color, warm Results & Data Results & Data ([facility]) Vital Signs (Past 12 Hours) Vital Signs Temp Pulse Resp BP Pulse Ox 07/09/21 14:00 67 94/56 L 100 07/09/21 13:00 69 85/55 L 96 07/09/21 12:00 67 90/56 L 99 07/09/21 11:31 36.8 C 67 93/56 L 99 07/09/21 11:02 70 16 99 07/09/21 11:00 67 99 07/09/21 10:16 79 109/74 99 07/09/21 10:00 70 99 07/09/21 09:00 72 111/68 99 07/09/21 08:04 64 93/57 L 99 07/09/21 08:00 36.8 C 07/09/21 07:24 71 16 99 07/09/21 07:04 70 93/58 L 99 07/09/21 06:05 85 128/80 98 07/09/21 05:04 79 108/63 98 07/09/21 04:04 36.8 C 69 93/58 L 98 07/09/21 03:36 16 Laboratory Results Short CBC 07/09/21 Range/Units 04:38 WBC 18.96 H (4.8-10.8) K/uL Hgb 11.2 L (12.0-16.0) g/dL Hct 33.4 L (37-47) % Plt Count 476 H (130-400) K/uL BMP 07/09/21 04:38 Sodium 139 Potassium 4.5 Chloride 106 Carbon Dioxide 26 BUN 11 Creatinine 0.72 Glucose 133 H Calcium 7.6 L
--- NOTE | 2021-07-09 15:55 | Anesthesiology Consultation ---
Date of Service July 09, 2021 The patient remains intubated in the ICU. Consent will need to be obtained from her . Assessment & Plan Chart Review Chart Review: Acceptable Risk for Surgery (necessary surgery) and Patient NOT seen in Pre Admission Testing Consults Requested none History Surgery Operation Date: 07/08/21 08:30 Proposed Procedures p Laparoscopic Assisted Vaginal Hysterecto - Emmy Lomas MD Operation Date: 07/10/21 12:00 Proposed Procedures p Exploratory Laparotomy and Wound Closure, Possible Bowel Resection - Luke Batista DO Height/Weight Height: 5 ft 7 in Weight: 74.2 kg Allergies Allergy/AdvReac Type Severity Reaction Status Date / Time No Known Allergies Allergy Unverified 07/03/21 15:30 Medications Home Medications Medication Instructions Recorded Confirmed Last Taken omeprazole 20 mg capsule,delayed 20 mg PO DAILY 07/03/21 07/04/21 Unknown release ibuprofen 600 mg tablet 600 mg PO TID 07/04/21 07/04/21 Unknown Active Medications Generic Name Dose Route Start Last Admin Trade Name Jimmy PRN Reason Stop Dose Admin Fentanyl Citrate 50 mcg 07/08/21 13:36 07/08/21 18:34 Fentanyl Bolus From Bag IV 07/22/21 13:35 50 mcg Q60M PRN Administration Pain or Agitation Hydromorphone HCl 2 mg 07/08/21 14:08 07/09/21 11:27 Hydromorphone Inj 2 Mg/Ml Syr/Vial IV 07/22/21 14:07 2 mg Q2H PRN Administration Pain Sodium Chloride 1,000 mls @ 75 mls/hr 07/08/21 13:00 07/09/21 15:29 Nss 1000ml IV 08/07/21 12:59 Not Given .[id number] BROOKE Piperacillin Sod/Tazobactam 115 mls @ 28.75 mls/hr 07/08/21 19:00 07/09/21 15:29 Sod 3.375 gm/ Dextrose IV 07/18/21 18:59 Infused Q8H BROOKE Infusion Protocol Fentanyl Citrate 1,250 mcg in 250 mls @ 35 mls/hr 07/08/21 13:45 07/09/21 09:24 Fentanyl Drip IV 07/22/21 13:44 175 mcg/hr .[id number] BROOKE 35 mls/hr Administration Protocol 175 MCG/HR Midazolam HCl 125 mg in 250 mls @ 16 mls/hr 07/08/21 13:36 07/09/21 10:43 Versed IV 08/07/21 13:35 8 mg/hr .[id number] PRN 16 mls/hr Agitation Titration Protocol 8 MG/HR Lansoprazole 30 mg 07/08/21 14:15 07/09/21 09:24 Lansoprazole 30 Mg Soltab PO 08/07/21 14:14 30 mg QAM BROOKE Administration Midazolam HCl 2 mg 07/08/21 13:36 07/09/21 10:43 Midazolam Bolus From Bag IV 08/07/21 13:35 2 mg Q60M PRN Administration Sedation Miscellaneous 1 ea 07/08/21 18:00 07/09/21 08:57 Icu Electrolyte Replacement Protocol N/A 07/15/21 17:59 Not Given [email or web address]@[id number] BROOKE Protocol NPO Date Last Intake of Fluids: 07/07/21 Time Last Intake of Fluids: 12:00 Last Intake of Fluids Comment: sip of h20 with benadryl Date Last Intake of Solids: 07/07/21 Time Last Intake of Solids: 08:00 Past Medical History Medical History Anemia GERD (gastroesophageal reflux disease) TOA (tubo-ovarian abscess) Past Surgical History Surgical History H/O right hemicolectomy grade 1 view with Mac 3 blade Social History Smoking Status: Never smoker Hx Alcohol Use: No Hx Substance Use: No Physical Exam Vital Signs Last Vital Signs Temp 36.8 C 07/09/21 11:31 Pulse 67 07/09/21 14:00 Resp 16 07/09/21 11:02 BP 94/56 L 07/09/21 14:00 Pulse Ox 100 07/09/21 14:00 Testing Laboratory Results 07/09/21 04:38 07/09/21 04:38 PT 13.3 Seconds (9.0-12.0) H 07/08/21 12:54 INR 1.3 (0.9-1.1) H 07/08/21 12:54 HCG, Quant 3 mIU/ml 07/04/21 13:10 Urine Color Dark Yellow 07/03/21 Unknown Urine Appearance Cloudy (Clear) A 07/03/21 Unknown Urine pH 5.5 (4.5-7.5) 07/03/21 Unknown Ur Specific [place] 1.031 (1.000-1.030) H 07/03/21 Unknown Urine Protein 3+ (Negative) H 07/03/21 Unknown Urine Glucose (UA) Negative (Negative) 07/03/21 Unknown Urine Ketones Trace (Negative) H 07/03/21 Unknown Urine Nitrite Positive (Negative) A 07/03/21 Unknown Ur Leukocyte Esterase Trace (Negative) H 07/03/21 Unknown Urine WBC (Auto) 10-30 /hpf (0-5) H 07/03/21 Unknown Urine RBC (Auto) 0-4 /hpf (0-4) 07/03/21 Unknown U Hyaline Cast (Auto) 10-30 /lpf (0-5) H 07/03/21 Unknown U Epithel Cells (Auto) >30 /lpf (0-5) H 07/03/21 Unknown Urine Bacteria (Auto) 4+ (Negative) H 07/03/21 Unknown 07/08/21 09:50 Gram Stain - Final Abdomen, Right Lower Quadrant Aerobic and Anaerobic Culture - Preliminary Alpha strep 07/08/21 09:35 Gram Stain - Final Peritoneal Fluid Aerobic and Anaerobic Culture - Preliminary No growth to date. 07/03/21 19:35 Aerobic Blood Culture - Final Blood No growth in Aerobic bottle after 5 days. Anaerobic Blood Culture - Final No growth in Anaerobic bottle after 5 days. 07/03/21 19:35 Aerobic Blood Culture - Final Blood No growth in Aerobic bottle after 5 days. Anaerobic Blood Culture - Final No growth in Anaerobic bottle after 5 days. 07/03/21 Unknown Urine Culture - Final Urine,Clean Catch Escherichia coli 07/09/21 11:43 POC Glucose 104 H 07/04/21 07/03/21 13:10 Unknown HCG, Quant 3 4
--- NOTE | 2021-07-09 17:09 | XRay Report ---
XR chest 1V portable CLINICAL HISTORY: hypoxia COMPARISON STUDY: July 08, 2021 FINDINGS: No pneumothorax. No pleural effusion. Minimal atelectasis at bilateral bases. Persistent mild elevation of the right hemidiaphragm. Cardiomediastinal silhouette is within normal limits in size. No significant pulmonary vascular congestion.. Osseous structures: unremarkable Tip of endotracheal tube is projecting 4.3 cm above abbie. Stable position of gastric tube with tip and fenestrated side-port outside of [id number] and below level of hemidiaphragm. IMPRESSION: 1. Minimal atelectasis at bilateral bases, stable since prior. 2. Support apparatus as above. ACT 112: Negative or not required by law. The above report was generated using voice recognition software. It may contain grammatical, syntax o r spelling errors. Electronically signed by: Neela Barrera DO 07/09/2021 5:07 PM
[2021-07-10] MEDS: HYDROmorphone INJ 2 MG/ML SYR/VIAL IV PRN ×2 (00:43→09:18)
[2021-07-10] MEDS: fentaNYL DRIP 1,250 MCG/250 ML BAG IV SCH ×2 (01:09→09:18)
[2021-07-10] MEDS: PIPERACILLIN/TAZOBACTAM 3.375 GM in DEXTROSE 5% 100 ML IV SCH ×3 (02:41→18:29)
[2021-07-10 06:18] LABS: Hematocrit (blood only) 34.4 % (37-47); Hemoglobin 10.9 g/dL (12.0-16.0); Mean Corpuscular Hemoglobin 30.9 pg (25-34); Mean Corpuscular Hgb Conc 31.7 g/dL (32-36); Mean Corpuscular Volume 97.5 fL (80-100); Mean Platelet Volume 9.3 fL (7.4-10.4); Platelet Count 531 K/uL (130-400); RDW Coefficient of Variation 14.3 % (11.5-14.5); RDW Standard Deviation 51.2 fL (36.4-46.3); Red Blood Count 3.53 M/uL (4.2-5.4); White Blood Count 19.51 K/uL (4.8-10.8)
[2021-07-10 06:43] LABS: BUN Creatinine Ratio 19.4 (10-20); Calcium 7.6 mg/dl (8.5-10.1); Creatinine Clr Calc Pharmacy 86.4 ml/min; Est GFR (African American) 103.2 ml/min; Magnesium 2.4 mg/dl (1.8-2.4); Phosphorus 3.4 mg/dl (2.5-4.9); Potassium 4.1 mmol/L (3.5-5.1)
[2021-07-10] MEDS: ICU ELECTROLYTE REPLACEMENT PROTOCOL SCH ×2 (06:44→11:02)
[2021-07-10 06:49] LABS: Basophils # (auto) 0.04 K/uL (0-0.2); Basophils % (auto) 0.2 %; Eosinophils # (auto) 0.21 K/uL (0-0.5); Eosinophils % (auto) 1.1 %; Immature Granulocytes # (auto) 1.18 K/uL (0.00-0.02); Lymphocytes # (auto) 2.02 K/uL (1.2-3.4); Lymphocytes % (auto) 10.4 %; Monocytes % (auto) 5.1 %; Neutrophils # (auto) 15.06 K/uL (1.4-6.5); Neutrophils % (auto) 77.2 %; RBC Morphology Unremarkable
--- NOTE | 2021-07-10 07:38 | Critical Care Progress Note ---
Date of Service July 10, 2021 Assessment & Plan (1) TOA (tubo-ovarian abscess): Plan: Assessment: 46yo female presented on 07/04 with a ten-day history of abdominal pain, found with TOA. Went to OR on 07/08 for ex lap, progressed to SBO, required right hemicolectomy, partial omentectomy, primary repair of sigmoidal serosal tear. Currently admitted to the ICU for mechanical ventilation and postoperative management. Critical care indication: need for mechanical ventilation, risk of life- threatening complications s/p abdominal surgery, open abdomen 24-hour events: borderline hypotensive overnight but did not require pressors Plan: anticipate return to OR on 07/10 for reapproximation of abdominal wound Neurologic CAM ICU negative Sedation: fentanyl, midazolam Analgesia: dilauded Continue with sedation and analgesia as above, wean as tolerated Cardiac BP stable at this time, not requiring pressors Continue cardiac monitoring Respiratory No prior history of respiratory disease Intubated for postoperative respiratory insufficiency; consideration given to extubation, attempting to achieve better pain control; concerned over airway patency and adequate analgesia Continue mechanical ventilation for now Tidal volumes decreased to maintain a lung-protective ventilation strategy Gastrointestinal Diet: NPO Patient with SBO s/p ex lap with right hemicolectomy Low intermittent suction of OG tube PPI restarted given mechanical ventilation >24hr Renal/electrolytes Mild hypocalcemia improving with repletion; hypomagnesemia resolved No MONIKA at this time Continue NSS at 75mL/hr Trend daily BMP Genitourinary No concerns at this time Coombs catheter draining normal-appearing urine at this time Strict I/O's Endocrine BSG stable ICU hypoglycemia protocol Hematologic Patient with mild new anemia to 10.9 Follow daily CBC Blood type: A positive Infectious disease TOA: continue zosyn Leukocytosis and thrombocytosis persist, suspect 2/2 infection, postoperative inflammation Patient remains afebrile; continue to monitor fever curve Nasal MRSA swab negative (07/08) Integumentary No concerns at this time Lines/access PIV x2, ET tube, NG tube Prophylaxis DVT ppx: SCDs GI ppx: lansoprazole Thank you the opportunity to participate in this patient's care. Please refer to Dr. Cortez's documentation for further recommendations. Admission and Anticipated Discharge Date Admission Date: July 03, 2021 Supervising Physician Co-Signing Physician Notes Patient seen and examined with resident physician. I agree with his assessment and plan aside for any additions/exceptions noted: Patient was successfully extubated postoperatively. Surgery was able to successfully washout her abdomen close the abdominal wound. Cultures from the tubo-ovarian abscess are growing alpha strep, gram-negative rods and staph species. Continue Zosyn. Vancomycin added. If MRSA is not identified in abdominal cultures, then vancomycin likely be discontinued. Patient is stable for downgrade to telemetry at this point. Subjective Patient seen and evaluated at bedside this morning. Overnight, patient's BP varied from normotensive to mildly hypotensive but did not require pressor support. This morning, patient is alert and able to respond to questions. Patient denies CP, SOB, abdominal pain, and nausea at this time. ROS limited due to presence of ET tube. Review of Systems Review of Systems: See HPI Physical Exam Physical Exam: Constitutional: asleep but arouses with verbal or tactile stimulation, laying in bed in no acute distress, mechanically ventulated HEENT: PERRLA, MMM, ET tube in place CV: regular rhythm, no murmur appreciated, extremities well-perfused Resp: intubated and mechanically ventilated, good air movement, lung sounds clear bilaterally GI: soft, nondistended, nonrigid, wound vac in place, some tenderness to palpation, BS present MSK: SCDs in place Neuro: sedated and mechanically ventilated, opens eyes to voice, nods or shakes head appropriately to questioning Results & Data Results & Data ([facility]) Vital Signs (Past 12 Hours) Vital Signs Temp Pulse Resp BP Pulse Ox 07/10/21 07:00 76 92/55 L 98 07/10/21 06:00 94 H 98/57 L 97 07/10/21 05:00 80 105/66 96 07/10/21 04:08 79 16 97 07/10/21 04:00 36.9 C 80 105/64 98 07/10/21 03:00 36.8 C 78 93/58 L 97 07/10/21 02:00 36.9 C 76 88/57 L 97 07/10/21 01:00 79 90/54 L 95 07/10/21 00:00 36.7 C 77 96/62 L 98 07/09/21 23:23 78 07/09/21 23:00 78 93/54 L 96 07/09/21 22:14 16 07/09/21 22:00 37 C 71 102/63 96 07/09/21 21:19 72 16 97 07/09/21 21:00 77 91/57 L 98 07/09/21 20:00 75 95/62 L 96 Resident Activity Tracking Resident Involvement: Resident Care Provided Care Provided: Adult Hospital Medicine
[2021-07-10] MEDS: LANSOPRAZOLE 30 MG SOLTAB PO SCH (08:01)
--- NOTE | 2021-07-10 08:57 | Surgery Progress Note ---
Date of Service July 10, 2021 Assessment & Plan (1) TOA (tubo-ovarian abscess): Plan: -Continue mechanical ventilation with sedation -Plan to return to OR today for exploratory laparotomy, possible bowel resection, possible ostomy, possible closure (2) Small bowel obstruction: Admission and Anticipated Discharge Date Admission Date: July 03, 2021 Subjective Pt seen and examined. No acute events overnight. No pressors. Follows commands on vent. Afebrile. Review of Systems Constitutional: no fever and no chills Physical Exam Gastrointestinal (Abdomen): Abdomen with wound vac in place, appropriately TTP, serosanguinous output in vac Results & Data ([facility]) Vital Signs (Past 12 Hours) Vital Signs Temp Pulse Resp BP Pulse Ox 07/10/21 08:00 74 107/65 99 07/10/21 07:30 16 07/10/21 07:00 76 92/55 L 98 07/10/21 06:00 94 H 98/57 L 97 07/10/21 05:00 80 105/66 96 07/10/21 04:08 79 16 97 07/10/21 04:00 36.9 C 80 105/64 98 07/10/21 03:00 36.8 C 78 93/58 L 97 07/10/21 02:00 36.9 C 76 88/57 L 97 07/10/21 01:00 79 90/54 L 95 07/10/21 00:00 36.7 C 77 96/62 L 98 07/09/21 23:23 78 07/09/21 23:00 78 93/54 L 96 07/09/21 22:14 16 07/09/21 22:00 37 C 71 102/63 96 07/09/21 21:19 72 16 97 07/09/21 21:00 77 91/57 L 98 PG Care Time/CCT Total # of Minutes Spent Total Time Spent with Patient: Total time spent is greater than 50% in coordination of care (as documented) at patient's floor/unit and/or counseling patient: Coding Level of Care Code None Diagnoses TOA (tubo-ovarian abscess) N70.93 Small bowel obstruction K56.609
[2021-07-10] MEDS ORDERED: MIDAZOLAM HCL 1 MG/ML 2ML VIAL ONE (10:59)
[2021-07-10] MEDS ORDERED: fentaNYL citrate 100 MCG/2 ML VIAL ONE ×2 (11:55→12:52)
[2021-07-10] MEDS ORDERED: SUGAMMADEX SODIUM 200 MG/2 ML VIAL IV ONE (12:18)
[2021-07-10] MEDS ORDERED: ROCURONIUM BROMIDE 10 MG/ML 5 ML VIAL IV ONE (12:29)
[2021-07-10] MEDS ORDERED: PROPOFOL IV EMULSION 10 MG/ML 20 ML VIAL IV ONE (12:29)
[2021-07-10] MEDS ORDERED: ONDANSETRON INJ 2 MG/ML 2 ML VIAL ONE (12:30)
--- NOTE | 2021-07-10 13:05 | Post Operative Brief Note ---
PG Immediate Post Op with CF Date of Surgery July 10, 2021 Pre & Post Diagnosis Operation Date: 07/10/21 12:00 Pre-Op Diagnosis: Open Abdomen Post-Op Diagnosis: Open Abdomen I identified the patient and participated in the time-out.: Yes Procedure Operation Date: 07/10/21 12:00 Actual Procedures p Reexploration Abdominal Laparotomy, Abdominal Washout, Abdominal Wall Closure(Not Applicable) - Luke Batista DO Surgeon Luke Batista DO Gra[employer] [address] Dr Hoffmann Estimated Blood Loss 25 Findings Consistent with Post-Op Diagnosis Specimens Specimen Description: None Drains Luke Drain (19fr), Coombs Catheter and Deep Water Drain Anesthesia Type General Complications none Disposition Disposition: Recovery Room
[2021-07-10] MEDS ORDERED: LABETALOL HCL IV 5 MG/ML 20ML IV PRN (13:14)
[2021-07-10] MEDS ORDERED: fentaNYL citrate 100 MCG/2 ML VIAL IV PRN (13:14)
[2021-07-10] MEDS ORDERED: FLUMAZENIL 0.1 MG/1 ML 10 ML VIAL IV PRN (13:14)
[2021-07-10] MEDS ORDERED: ONDANSETRON INJ 2 MG/ML 2 ML VIAL IV PRN (13:14)
[2021-07-10] MEDS ORDERED: NALOXONE HCL 0.4 MG/1 ML VIAL/CARP IV PRN (13:14)
[2021-07-10] MEDS ORDERED: ATROPINE SULFATE 0.1 MG/ML 10ML SYR IV PRN (13:14)
[2021-07-10] MEDS ORDERED: PROMETHAZINE HCL 12.5 MG in SODIUM CHLORIDE 0.9% 50 ML IV PRN (13:14)
[2021-07-10] MEDS ORDERED: ePHEDrine sulfate 50 MG/ML AMP IV PRN (13:14)
[2021-07-10] MEDS ORDERED: HYDROmorphone INJ 0.5 MG/0.5 ML SYR IV PRN (13:25)
--- NOTE | 2021-07-10 13:40 | Anesthesiology Progress Note ---
Date of Service July 10, 2021 Anesthesia Post Procedure Vital Signs Vital Signs: Temp Pulse Pulse Resp BP BP Pulse Ox 07/10/21 13:30 108 H 25 H 148/98 H 96 07/10/21 13:15 108 H 25 H 154/98 H 96 07/10/21 11:19 83 16 98 07/10/21 11:13 36.3 C L 79 16 114/67 99 07/10/21 11:01 87 114/67 99 07/10/21 10:00 74 92/63 L 99 07/10/21 09:00 81 126/79 99 07/10/21 08:00 37.4 C 74 107/65 99 07/10/21 07:30 16 07/10/21 07:00 76 92/55 L 98 07/10/21 06:00 94 H 98/57 L 97 07/10/21 05:00 80 105/66 96 07/10/21 04:08 79 16 97 07/10/21 04:00 36.9 C 80 105/64 98 07/10/21 03:00 36.8 C 78 93/58 L 97 07/10/21 02:00 36.9 C 76 88/57 L 97 07/10/21 01:00 79 90/54 L 95 07/10/21 00:00 36.7 C 77 96/62 L 98 07/09/21 23:23 78 07/09/21 23:00 78 93/54 L 96 07/09/21 22:14 16 07/09/21 22:00 37 C 71 102/63 96 07/09/21 21:19 72 16 97 07/09/21 21:00 77 91/57 L 98 07/09/21 20:00 75 95/62 L 96 07/09/21 19:00 36.6 C 79 119/73 95 07/09/21 17:00 89 96/60 L 94 07/09/21 16:20 89 128/73 90 07/09/21 16:00 36.8 C 80 102/66 100 07/09/21 15:16 72 16 100 07/09/21 15:00 81 97/65 L 100 07/09/21 14:00 67 94/56 L 100 Pain Intensity Lower Abdomen: Pain Intensity: 0 Transfer of Care Handoff Completed per policy Notes Mental Status: alert / awake / arousable Patient Amnestic to Procedure: Yes Nausea / Vomiting: adequately controlled Pain: adequately controlled Airway Patency, RR, SpO2: stable & adequate BP & HR: stable & adequate Hydration State: stable & adequate Anesthetic Complications: no major complications apparent
--- NOTE | 2021-07-10 14:06 | Operative Report ---
PG Post Operative Report Pre & Post Diagnosis Operation Date: 07/10/21 12:00 Pre-Op Diagnosis: Open Abdomen Post-Op Diagnosis: Open Abdomen I identified the patient and participated in the time-out.: Yes Procedure Operation Date: 07/10/21 12:00 Actual Procedures p Reexploration Abdominal Laparotomy, Abdominal Washout, Abdominal Wall Closure(Not Applicable) - Luke Batista DO Surgeon Luke Batista DO Tree [address] Dr Hoffmann Estimated Blood Loss 25 Findings See Below Intact ileocolonic anastomosis without signs of obstruction or ischemia Sigmoid colon without signs of ischemia or perforation Specimens None Drains 19 Fr Luke Drain in the pelvis/abscess cavity Anesthesia Type General Complications none Disposition Accompanied Patient To Recovery: Yes Disposition: Recovery Room Indications 46 yo female s/p drainage of tubo-ovarian abscess, R hemicolectomy with open abdomen Description of Procedure The patient was brought to the OR and placed in the supine position with both arms abducted. At this time she was already under general endotracheal anesthesia. She was given appropriate pre-operative antibiotics. Outer dressing and foam sponge was removed from the abdomen. Her abdomen was prepped and draped in the usual sterile fashion. Timeout was called. The procedure was verified as Exploratory laparotomy, possible bowel resection, possible ostomy. Surgical, anesthesia and nursing teams agreed and the procedure was begun. The inner portion of the wound vac was removed and discarded. There were filmy interloop small bowel adhesions lysed bluntly. Multiple liters of warm saline were placed in the abdomen to irrigate. We then inspected the ileocolonic anastomosis which was intact, patent and without signs of ischemia. At this point the small bowel was eviscerated and ran from Ligament of Treitz to the anastomosis and was free of pathology. There was no ischemic changes noted. The bowel was slightly distended. The sigmoid colon was then inspeced and the area where there was a serosal tear was inspected after dissecting away a portion of the abscess cavity away from it. It was healthy and without ischemia. The area was oversewn in a Lembert fashion using 3-0 Silk suture. At this point the wound was then irrigated until clear. Hemostasis was achieved using electrocautery. Hemostasis was complete. A 19 [place]ian Luke drain was placed in the pelvis and brought out through a stab incision in the left abdomen. The fascia was then closed in a running fashion using 2 #0 looped PDS suture starting superiorly and inferiorly and meeting in the middle. Skin was closed with hernán over a Marcelo drain. Sterile dressing was applied. All needle and sponge counts were correct x 2. At this point the patient was awakened from anesthesia, extubated and transported to PACU in stable condition. I attest to the content of the Intraoperative Record and any orders documented therein. Any exceptions are noted below.
--- NOTE | 2021-07-10 14:25 | Billing Data ---
Date of Service July 10, 2021 Coding Level of Care Code 75196 Subseq Hosp Care Lvl 2
[2021-07-10] MEDS ORDERED: VANCOMYCIN CONSULT ACTIVE PRN (14:29)
[2021-07-10] MEDS ORDERED: VANCOMYCIN HCL 1,500 MG in SODIUM CHLORIDE 0.9% 500 ML IV ONE (14:30)
--- NOTE | 2021-07-10 14:51 | Pharmacy Report ---
Pharmacy Abx Dose Short Note - Date of Service July 10, 2021 - Assessment & Plan Assessment * 46 year old F receiving VANCOMYCIN + ZOSYN for treatment of tuboovarian abscess, s/p exp lap, abdominal washout, R hemicolectomy * Day 2 Zosyn, Day 1 Vancomycin. Vancomycin added today due to new growth of staph species in peritoneal fluid. * Cultures taken from abdomen also growing GNR and alpha strep * Renal fxn stable. No pressor requirements. Plan Vancomycin * 1500mg (~20mg/kg) x 1 loading dose * Maint dose: 1000mg (13.6mg/kg) IV Q 12 hours * Goal trough level for intra-abd infxn : 10 to 20 mcg/mL or AUC:JEROD 400-600 * Will check trough level w/ 3rd or 4th dose if therapy to continue. Zosyn * continue 3.375gm ext-infusion Q 8 hrs for BMI < 35 and eCrCl > 20cc/min Pharmacy will continue to follow and will adjust dose/frequency as necessary. Thank you.
[2021-07-10] MEDS: SODIUM CHLORIDE 0.9% 1000ML 1,000 ML IV SCH ×2 (14:58→22:55)
[2021-07-10] MEDS: HYDROmorphone INJ 1 MG/ML SYRINGE IV PRN ×4 (14:58→22:54)
--- NOTE | 2021-07-10 15:13 | Hospitalist Progress Note ---
Date of Service July 10, 2021 Assessment & Plan (1) TOA (tubo-ovarian abscess): Plan: Sepsis-POA Tubo-ovarian abscess -CT ABD:Tubular hypoattenuating lesions with septation, mucosal enhancement and thickening as well as surrounding edema could represent pyosalpinx/tubo-ovarian abscess. 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 Diverticulosis of sigmoid colon colon is seen with mild surrounding fat stranding which might represent reactive changes due to close proximity a dose of pelvic inflammatory process versus developing diverticulitis which is less likely. -Transvaginal USD:Complex multiloculated collection within the superior right adnexa, adjacent to the right ovary and superior aspect of the uterus extending to the midline. This corresponds to the collection shown on CT. Measurements difficult to obtain by sonography however the largest component measures approximately 6 x 4 cm. This is suggestive of a tubo-ovarian abscess. -Blood Cx: Negative to date -Serology for chlamydia, Neisseria negative -Peritoneal fluid culture growing staph species -Abdominal wound growing alpha strep, gram-negative bacilli -S/P laparotomy, drainage of right tubo-ovarian abscess, bilateral salpingo- oophorectomy POD #2 -S/P Reexploration Abdominal Laparotomy, Abdominal Washout, Abdominal Wall Closure POD #0 -Received IV fluids -IV clindamycin and gentamicin, transition to Levaquin, Flagyl>>>Zosyn -Appreciate NEON TUBE BENDER, Surgery and Critical Care input Persistent leukocytosis Continue Wound Care Add Vancomycin NPO for now Extubated today Small bowel obstruction Extensive pelvic inflammatory phlegmon CT ABD:Interval development of a small bowel obstruction with transition point within the abdominal right lower quadrant adjacent to the abscess. -S/P right hemicolectomy, omentectomy, sigmoid serosal tear repair POD #2 --S/P Reexploration Abdominal Laparotomy, Abdominal Washout, Abdominal Wall Closure POD #0 Appreciate surgery help Continue wound care Management as above (2) Positive test: Plan: Initial hcg is positive, hcg quant of 3 Pelvic ultrasound without intrauterine gestational sac. (3) Hypertension: Plan: BP slightly elevated Monitor (4) Hypomagnesemia: Plan: Replace as needed (5) Hypokalemia: Plan: Replace electrolytes as needed (6) UTI (urinary tract infection): Plan: Urine Cx growing smith sensitive E coli IV cefoxitin, Levaquin>> zosyn Completed the course Diarrhea stool for c diff Negative DVT Px: Teds, scds Disposition: Per primary service Admission and Anticipated Discharge Date Admission Date: July 03, 2021 Subjective Patient is seen and examined at bedside Intubated this morning. Had reexploration of abdominal laparotomy, abdominal washout and abdominal wall closure today Extubated postoperatively Discussed with ICU team today Unable to obtain history this morning as intubated. Review of Systems Review of Systems: Unobtainable due to endotracheal tube Physical Exam Physical Exam: Physical Exam: Vitals signs as noted above General Appearance:Moderately built and nourished, no apparent distress, +Intubated Head: normocephalic, Atraumatic Eyes: normal inspection, EOMI Neck: supple, Trachea midline Respiratory/Chest: Normal breath sounds, CTA Cardiovascular: S1, S2, No murmur Abdomen/GI:Soft, + Surgical wound, Wound Vac Extremities/Musculoskeletal:normal inspection, no edema Neurologic/Psych:AAOX3, grossly no focal neurological deficits Skin: normal color, warm Results & Data Results & Data ([facility]) Vital Signs (Past 12 Hours) Vital Signs Temp Pulse Pulse Resp BP BP Pulse Ox 07/10/21 14:04 102 H 24 159/89 H 96 07/10/21 13:40 104 H 26 H 144/86 H 95 07/10/21 13:30 108 H 25 H 148/98 H 96 07/10/21 13:15 108 H 25 H 154/98 H 96 07/10/21 11:19 83 16 98 07/10/21 11:13 36.3 C L 79 16 114/67 99 07/10/21 11:01 87 114/67 99 07/10/21 10:00 74 92/63 L 99 07/10/21 09:00 81 126/79 99 07/10/21 08:00 37.4 C 74 107/65 99 07/10/21 07:30 16 07/10/21 07:00 76 92/55 L 98 07/10/21 06:00 94 H 98/57 L 97 07/10/21 05:00 80 105/66 96 07/10/21 04:08 79 16 97 07/10/21 04:00 36.9 C 80 105/64 98 Laboratory Results Short CBC 07/10/21 Range/Units 05:34 WBC 19.51 H (4.8-10.8) K/uL Hgb 10.9 L (12.0-16.0) g/dL Hct 34.4 L (37-47) % Plt Count 531 H (130-400) K/uL [facility] 07/10/21 05:34 Sodium 137 Potassium 4.1 Chloride 105 Carbon Dioxide 27 BUN 16 Creatinine 0.80 Glucose 112 H Calcium 7.6 L
--- NOTE | 2021-07-10 15:57 | Gynecologic Progress Note ---
Date of Service July 10, 2021 Assessment & Plan Admission and Anticipated Discharge Date Admission Date: July 03, 2021 Subjective Patient seen and examined in ICU room. I was in her case as standby. General surgery team operated and close her while I was watching. Patient is responsive and recognize me. Pain is under control with medications, She declines chest pain, shortness of breath, dizziness Vital signs stable afebrile, Abdomen is soft, appropriately tender, dressing is dry and intact and clean. Urine output is adequate, Orders per ICU and general surgery team, Continue to monitor closely. Results & Data ([facility]) Vital Signs (Past 12 Hours) Vital Signs Temp Pulse Pulse Resp BP BP Pulse Ox 07/10/21 15:00 37.0 C 113 H 19 150/84 H 92 07/10/21 14:34 114 H 25 H 146/94 H 95 07/10/21 14:04 103 H 25 H 159/89 H 96 07/10/21 13:40 104 H 26 H 144/86 H 95 07/10/21 13:30 108 H 25 H 148/98 H 96 07/10/21 13:15 108 H 25 H 154/98 H 96 07/10/21 11:19 83 16 98 07/10/21 11:13 36.3 C L 79 16 114/67 99 07/10/21 11:01 87 114/67 99 07/10/21 10:00 74 92/63 L 99 07/10/21 09:00 81 126/79 99 07/10/21 08:00 37.4 C 74 107/65 99 07/10/21 07:30 16 07/10/21 07:00 76 92/55 L 98 07/10/21 06:00 94 H 98/57 L 97 07/10/21 05:00 80 105/66 96 07/10/21 04:08 79 16 97 07/10/21 04:00 36.9 C 80 105/64 98
[2021-07-10] MEDS: FAMOTIDINE 20 MG in SYRINGE 3 ML IV SCH (20:24)
[2021-07-11] MEDS: HYDROmorphone INJ 1 MG/ML SYRINGE IV PRN ×9 (01:05→22:48)
[2021-07-11] MEDS: PIPERACILLIN/TAZOBACTAM 3.375 GM in DEXTROSE 5% 100 ML IV SCH ×3 (02:39→20:10)
[2021-07-11] MEDS ORDERED: VANCOMYCIN HCL 1,000 MG in SODIUM CHLORIDE 0.9% 250 ML IV SCH (04:00)
[2021-07-11] MEDS: SODIUM CHLORIDE 0.9% 1000ML 1,000 ML IV SCH ×2 (05:41→16:11)
[2021-07-11 06:57] LABS: Hematocrit (blood only) 35.7 % (37-47); Hemoglobin 11.3 g/dL (12.0-16.0); Mean Corpuscular Hgb Conc 31.7 g/dL (32-36); Mean Corpuscular Volume 98.1 fL (80-100); Platelet Count 618 K/uL (130-400); RDW Coefficient of Variation 14.2 % (11.5-14.5); RDW Standard Deviation 51.2 fL (36.4-46.3); Red Blood Count 3.64 M/uL (4.2-5.4); White Blood Count 25.67 K/uL (4.8-10.8)
[2021-07-11 07:18] LABS: Basophils # (auto) 0.04 K/uL (0-0.2); Basophils % (auto) 0.2 %; Eosinophils # (auto) 0.09 K/uL (0-0.5); Eosinophils % (auto) 0.4 %; Immature Granulocytes # (auto) 1.34 K/uL (0.00-0.02); Immature Granulocytes % (auto) 5.2 %; Lymphocytes # (auto) 1.09 K/uL (1.2-3.4); Lymphocytes % (auto) 4.2 %; Monocytes # (auto) 1.02 K/uL (0.11-0.59); Neutrophils # (auto) 22.09 K/uL (1.4-6.5)
[2021-07-11 07:41] LABS: BUN Creatinine Ratio 14.8 (10-20); Creatinine Clr Calc Pharmacy 109.7 ml/min; Est GFR (African American) 125.6 ml/min; Est GFR (Non-African American) 108.3 ml/min; Magnesium 2.6 mg/dl (1.8-2.4); Phosphorus 3.6 mg/dl (2.5-4.9); Potassium 4.5 mmol/L (3.5-5.1)
[2021-07-11] MEDS: FAMOTIDINE 20 MG in SYRINGE 3 ML IV SCH ×2 (08:55→20:10)
[2021-07-11] MEDS ORDERED: ACETAMINOPHEN 1000 MG/100 ML IV IV PRN (10:22)
--- NOTE | 2021-07-11 10:22 | Hospitalist Progress Note ---
Date of Service July 11, 2021 Assessment & Plan (1) TOA (tubo-ovarian abscess): Plan: Sepsis-POA Tubo-ovarian abscess -CT ABD:Tubular hypoattenuating lesions with septation, mucosal enhancement and thickening as well as surrounding edema could represent pyosalpinx/tubo-ovarian abscess. Further [employer]GR[employer] DIRECTOR evaluation and possible pelvic ultrasound might be considered. Diverticulosis of sigmoid colon colon is seen with mild surrounding fat stranding which might represent reactive changes due to close proximity a dose of pelvic inflammatory process versus developing diverticulitis which is less likely. -Transvaginal USD:Complex multiloculated collection within the superior right adnexa, adjacent to the right ovary and superior aspect of the uterus extending to the midline. This corresponds to the collection shown on CT. Measurements difficult to obtain by sonography however the largest component measures approximately 6 x 4 cm. This is suggestive of a tubo-ovarian abscess. -Blood Cx: Negative to date -Serology for chlamydia, Neisseria negative -Peritoneal fluid culture growing staph species and corynebacterium - final -Abdominal wound growing alpha strep, gram-negative bacilli - final -S/P laparotomy, drainage of right tubo-ovarian abscess, bilateral salpingo- oophorectomy POD #3 -S/P Reexploration Abdominal Laparotomy, Abdominal Washout, Abdominal Wall Closure POD #1 -Appreciate [employer], Surgery Persistent leukocytosis, 25.67k today Continue Wound Care Continue antibiotics with IV vanco and Zosyn NPO for now Continue IVF IV famotidine for GI prophylaxis Small bowel obstruction Extensive pelvic inflammatory phlegmon CT ABD:Interval development of a small bowel obstruction with transition point within the abdominal right lower quadrant adjacent to the abscess. -S/P right hemicolectomy, omentectomy, sigmoid serosal tear repair POD #3 --S/P Reexploration Abdominal Laparotomy, Abdominal Washout, Abdominal Wall Closure POD #1 Appreciate surgery help Continue wound care Management as above (2) Positive test: Plan: Initial hcg is positive, hcg quant of 3 Pelvic ultrasound without intrauterine gestational sac. (3) Hypertension: Plan: BP slightly elevated Monitor, likely 2/2 to pain (4) Hypomagnesemia: Plan: repleted, mag mildly elevated today at 2.6 (5) Hypokalemia: Plan: repleted, monitor (6) UTI (urinary tract infection): Plan: Urine Cx growing smith sensitive E coli IV cefoxitin, Levaquin>> zosyn Treated - csatro cath remains in place Diarrhea stool for c diff Negative DVT Px: Teds, scds Disposition: Per primary service Pt was seen and examined in collaboration with Dr. Renner, please see addendum Thank you for this consultation. We will follow the patient with you during their hospital stay. You can reach a member of the [facility] Hospitalist Team 19/05 via hospitalist role on tiger text. Call call and see if they have an opening Admission and Anticipated Discharge Date Admission Date: July 03, 2021 Subjective Patient was seen and examined in room 243. Follow-up tubo-ovarian abscess status post exploratory laparotomy with reexploration, abdominal washout and abdominal wall closure. She is sitting up in bed currently complaining of abdominal pain. Pain is currently 6 out of 10. Pain is worse with moving and breathing. She denies fever, chills, sweats, lightheadedness, dizziness, chest pain, shortness breath, cough, nausea or vomiting. She remains n.p.o. Review of Systems Review of Systems: All systems reviewed & are unremarkable except as noted in HPI & below Physical Exam Physical Exam: Gen: Acutely ill-appearing female, sitting up in bed, NAD, A&O x3 HEENT: Normocephalic, atraumatic, conjunctivae moist, sclerae anicteric, mucous membranes moist. Lung: Clear to Auscultation bilaterally, no wheezes/rales/rhonchi Heart: Regular rate, regular rhythm, no murmurs, rubs, or gallops Abdomen: Dressing CDI, FREDDIE drain intact soft, appropriately tender, ND Extremities: No edema, SCDs in place Skin: Warm, no rash, negative turgor. : castro cath draining yellow urine Results & Data Results & Data ([facility]) Vital Signs (Past 12 Hours) Vital Signs Temp Pulse Pulse Resp BP BP Pulse Ox 07/11/21 08:17 36.7 C 91 H 18 151/87 H 94 07/11/21 05:00 96 H 07/11/21 04:00 37.4 C 94 H 26 H 145/85 H 93 07/11/21 03:00 92 H 22 144/85 H 93 07/11/21 02:00 92 H 21 144/82 H 93 07/11/21 01:00 93 H 24 142/81 H 94 07/11/21 00:00 37.5 C 93 H 24 144/81 H 93 07/10/21 23:34 97 H 07/10/21 23:00 99 H 24 124/76 92 Laboratory Results Short CBC 07/11/21 Range/Units 06:37 WBC 25.67 H (4.8-10.8) K/uL Hgb 11.3 L (12.0-16.0) g/dL Hct 35.7 L (37-47) % Plt Count 618 H (130-400) K/uL BMP 07/11/21 06:37 Sodium 136 Potassium 4.5 Chloride 105 Carbon Dioxide 26 BUN 9 D Creatinine 0.63 Glucose 120 H Calcium 8.0 L Medications Administered Medication List Hydromorphone HCl (Hydromorphone Inj 1 Mg/Ml Syringe) 1 mg IV Q2H PRN; Protocol PRN Reason: Pain Stop: 07/24/21 13:24 Last Admin: 07/11/21 07:30 Dose: 1 mg Documented by: [id number] Admin: 07/11/21 05:19 Dose: 1 mg Documented by: [id number] Admin: 07/11/21 03:09 Dose: 1 mg Documented by: [id number] Admin: 07/11/21 01:05 Dose: 1 mg Documented by: [id number] Admin: 07/10/21 22:54 Dose: 1 mg Documented by: [id number] Admin: 07/10/21 20:23 Dose: 1 mg Documented by: [id number] Admin: 07/10/21 18:32 Dose: 1 mg Documented by: [id number] Admin: 07/10/21 14:58 Dose: 1 mg Documented by: [id number] Piperacillin Sod/Tazobactam (Sod 3.375 gm/ Dextrose) 115 mls @ 28.75 mls/hr IV Q8H [facility]; Protocol Stop: 07/18/21 18:59 Last Infusion: 07/11/21 07:18 Dose: 0 mls/hr Documented by: [id number] Admin: 07/11/21 02:39 Dose: 28.8 mls/hr Documented by: [id number] Infusion: 07/10/21 22:53 Dose: 0 mls/hr Documented by: [id number] Admin: 07/10/21 18:29 Dose: 28.8 mls/hr Documented by: [id number] Infusion: 07/10/21 13:52 Dose: 0 mls/hr Documented by: [id number] Admin: 07/10/21 11:02 Dose: 28.8 mls/hr Documented by: [id number] Infusion: 07/10/21 06:46 Dose: 0 mls/hr Documented by: [id number] Admin: 07/10/21 02:41 Dose: 28.8 mls/hr Documented by: [id number] Infusion: 07/09/21 21:23 Dose: 0 mls/hr Documented by: [id number] Admin: 07/09/21 17:23 Dose: 28.8 mls/hr Documented by: [id number] Infusion: 07/09/21 15:29 Dose: 0 mls/hr Documented by: [id number] Admin: 07/09/21 11:26 Dose: 28.5 mls/hr Documented by: [id number] Infusion: 07/09/21 06:32 Dose: 0 mls/hr Documented by: [id number] Admin: 07/09/21 02:30 Dose: 28.8 mls/hr Documented by: [id number] Infusion: 07/08/21 22:34 Dose: 0 mls/hr Documented by: [id number] Admin: 07/08/21 18:41 Dose: 28.8 mls/hr Documented by: [id number] Famotidine 20 mg/ Syringe 5 mls @ 2.5 mls/min IV Q12H [facility] Stop: 08/09/21 20:59 Last Admin: 07/11/21 08:55 Dose: 2.5 mls/min Documented by: [id number] Admin: 07/10/21 20:24 Dose: 2.5 mls/min Documented by: [id number] Sodium Chloride (Nss 1000ml) 1,000 mls @ 100 mls/hr IV .Q10H [facility] Stop: 08/09/21 14:14 Last Admin: 07/11/21 05:41 Dose: 100 mls/hr Documented by: [id number] Infusion: 07/11/21 05:41 Dose: 0 mls/hr Documented by: [id number] Infusion: 07/11/21 05:34 Dose: 0 mls/hr Documented by: [id number] Admin: 07/10/21 22:55 Dose: 125 mls/hr Documented by: [id number] Infusion: 07/10/21 22:55 Dose: 125 mls/hr Documented by: [id number] Infusion: 07/10/21 17:38 Dose: 125 mls/hr Documented by: [id number] Infusion: 07/10/21 14:58 Dose: 0 mls/hr Documented by: [id number] Admin: 07/10/21 14:58 Dose: 125 mls/hr Documented by: [id number] Discontinued Medications Acetaminophen (Acetaminophen 325 Mg Tab) 650 mg PO Q4H PRN PRN Reason: Pain or Fever Stop: 08/02/21 17:59 Last Admin: 07/07/21 19:49 Dose: 650 mg Documented by: [id number] Admin: 07/07/21 06:10 Dose: 650 mg Documented by: [id number] Admin: 07/06/21 23:49 Dose: 650 mg Documented by: [id number] Admin: 07/06/21 15:50 Dose: 650 mg Documented by: [id number] Admin: 07/05/21 15:04 Dose: 650 mg Documented by: [id number] Admin: 07/05/21 07:48 Dose: 650 mg Documented by: [id number] Admin: 07/04/21 23:25 Dose: 650 mg Documented by: [id number] Admin: 07/04/21 14:15 Dose: 650 mg Documented by: [id number] Admin: 07/04/21 09:18 Dose: 650 mg Documented by: [id number] Admin: 07/04/21 03:25 Dose: 650 mg Documented by: [id number] Bupivacaine HCl (Bupivacaine 0.5 % 5 Mg/1 Ml Mpf 30ml Vial) Confirm Administered Dose 30 ml .ROUTE .STK-MED ONE Stop: 07/08/21 08:03 Last Admin: 07/08/21 13:31 Dose: Not Given Documented by: [id number] Diphenhydramine HCl (Diphenhydramine Capsule 25 Mg Cap) 25 mg PO NOW ONE Stop: 07/07/21 22:41 Last Admin: 07/07/21 23:23 Dose: 25 mg Documented by: [id number] Epinephrine HCl (Epinephrine Inj 1 Mg/Ml Amp) Confirm Administered Dose 1 mg .ROUTE .STK-MED ONE Stop: 07/08/21 08:03 Last Admin: 07/08/21 13:31 Dose: Not Given Documented by: [id number] Fentanyl Citrate (Fentanyl Citrate 1250mcg/250ml Nss) Confirm Administered Dose 1,250 mcg IV .STK-MED ONE Stop: 07/08/21 12:34 Last Admin: 07/08/21 13:44 Dose: Not Given Documented by: [id number] Fentanyl Citrate (Fentanyl Bolus From Bag) 50 mcg IV Q60M PRN PRN Reason: Pain or Agitation Stop: 07/22/21 13:35 Last Admin: 07/10/21 05:30 Dose: 50 mcg Documented by: [id number] Admin: 07/10/21 03:58 Dose: 50 mcg Documented by: [id number] Admin: 07/10/21 01:09 Dose: 50 mcg Documented by: [id number] Admin: 07/09/21 22:11 Dose: 50 mcg Documented by: [id number] Admin: 07/08/21 18:34 Dose: 50 mcg Documented by: [id number] Admin: 07/08/21 14:45 Dose: 50 mcg Documented by: [id number] Admin: 07/08/21 14:09 Dose: 50 mcg Documented by: [id number] Hydromorphone HCl (Hydromorphone Inj 2 Mg/Ml Syr/Vial) 2 mg IV Q2H PRN PRN Reason: Pain Stop: 07/22/21 14:07 Last Admin: 07/10/21 09:18 Dose: 2 mg Documented by: [id number] Admin: 07/10/21 00:43 Dose: 2 mg Documented by: [id number] Admin: 07/09/21 16:24 Dose: 2 mg Documented by: [id number] Admin: 07/09/21 11:27 Dose: 2 mg Documented by: [id number] Admin: 07/09/21 09:23 Dose: 2 mg Documented by: [id number] Admin: 07/09/21 06:02 Dose: 2 mg Documented by: [id number] Admin: 07/09/21 02:32 Dose: 2 mg Documented by: [id number] Admin: 07/08/21 23:40 Dose: 2 mg Documented by: [id number] Admin: 07/08/21 18:56 Dose: 2 mg Documented by: [id number] Admin: 07/08/21 16:55 Dose: 2 mg Documented by: [id number] Admin: 07/08/21 14:54 Dose: 2 mg Documented by: [id number] Sodium Chloride (Nss 1000ml) 2,000 mls @ 999 mls/hr IV .Q2H1M ONE Stop: 07/03/21 16:38 Last Infusion: 07/03/21 19:59 Dose: 0 mls/hr Documented by: [id number] Admin: 07/03/21 16:28 Dose: 999 mls/hr Documented by: [id number] Infusion: 07/03/21 16:28 Dose: 999 mls/hr Documented by: [id number] Admin: 07/03/21 15:06 Dose: 999 mls/hr Documented by: [id number] Sodium Chloride (Nss 1000ml) 2,000 mls @ 999 mls/hr IV .Q2H1M ONE Stop: 07/03/21 16:47 Last Infusion: 07/03/21 20:00 Dose: 0 mls/hr Documented by: [id number] Admin: 07/03/21 17:16 Dose: 999 mls/hr Documented by: [id number] Ceftriaxone Sodium (Rocephin) 1,000 mg in 50 mls @ 100 mls/hr IV NOW STA Stop: 07/03/21 17:01 Last Infusion: 07/03/21 17:53 Dose: 0 mls/hr Documented by: [id number] Admin: 07/03/21 17:07 Dose: 100 mls/hr Documented by: [id number] Doxycycline Hyclate 100 mg/ (Dextrose) 110 mls @ 50 mls/hr IV NOW STA Stop: 07/03/21 18:43 Last Infusion: 07/03/21 20:09 Dose: 0 mls/hr Documented by: [id number] Admin: 07/03/21 17:52 Dose: 50 mls/hr Documented by: [id number] Lactated Ringer's (Lr) 1,000 mls @ 100 mls/hr IV .Q10H [facility] Stop: 08/02/21 17:59 Last Admin: 07/08/21 13:47 Dose: Not Given Documented by: [id number] Admin: 07/08/21 13:45 Dose: Not Given Documented by: [id number] Infusion: 07/08/21 13:45 Dose: 0 mls/hr Documented by: [id number] Admin: 07/08/21 06:50 Dose: 100 mls/hr Documented by: [id number] Infusion: 07/08/21 05:46 Dose: 100 mls/hr Documented by: [id number] Admin: 07/07/21 19:46 Dose: 100 mls/hr Documented by: [id number] Infusion: 07/07/21 17:41 Dose: 100 mls/hr Documented by: [id number] Infusion: 07/07/21 14:00 Dose: 100 mls/hr Documented by: [id number] Infusion: 07/07/21 12:04 Dose: 100 mls/hr Documented by: [id number] Infusion: 07/07/21 06:20 Dose: 75 mls/hr Documented by: [id number] Admin: 07/07/21 06:13 Dose: 75 mls/hr Documented by: [id number] Infusion: 07/07/21 06:10 Dose: 75 mls/hr Documented by: [id number] Admin: 07/06/21 16:50 Dose: 75 mls/hr Documented by: [id number] Infusion: 07/06/21 14:10 Dose: 75 mls/hr Documented by: [id number] Infusion: 07/06/21 06:25 Dose: 75 mls/hr Documented by: [id number] Admin: 07/06/21 00:50 Dose: 75 mls/hr Documented by: [id number] Infusion: 07/05/21 23:56 Dose: 75 mls/hr Documented by: [id number] Infusion: 07/05/21 14:11 Dose: 75 mls/hr Documented by: [id number] Infusion: 07/05/21 13:10 Dose: 0 mls/hr Documented by: [id number] Infusion: 07/05/21 12:20 Dose: 75 mls/hr Documented by: [id number] Infusion: 07/05/21 11:17 Dose: 0 mls/hr Documented by: [id number] Infusion: 07/05/21 09:25 Dose: 75 mls/hr Documented by: [id number] Infusion: 07/05/21 08:42 Dose: 0 mls/hr Documented by: [id number] Admin: 07/05/21 07:49 Dose: 75 mls/hr Documented by: [id number] Infusion: 07/05/21 07:36 Dose: 75 mls/hr Documented by: [id number] Infusion: 07/05/21 05:58 Dose: 75 mls/hr Documented by: [id number] Infusion: 07/05/21 05:10 Dose: 0 mls/hr Documented by: [id number] Infusion: 07/04/21 22:03 Dose: 75 mls/hr Documented by: [id number] Infusion: 07/04/21 21:29 Dose: 0 mls/hr Documented by: [id number] Infusion: 07/04/21 20:44 Dose: 75 mls/hr Documented by: [id number] Infusion: 07/04/21 20:18 Dose: 0 mls/hr Documented by: [id number] Admin: 07/04/21 16:27 Dose: 75 mls/hr Documented by: [id number] Infusion: 07/04/21 15:32 Dose: 0 mls/hr Documented by: [id number] Infusion: 07/04/21 10:15 Dose: 75 mls/hr Documented by: [id number] Admin: 07/04/21 05:19 Dose: 125 mls/hr Documented by: [id number] Infusion: 07/04/21 05:19 Dose: 125 mls/hr Documented by: [id number] Admin: 07/03/21 21:46 Dose: 125 mls/hr Documented by: [id number] Cefoxitin Sodium (Mefoxin) 2,000 mg in 60 mls @ 100 mls/hr IV Q6H [facility]; Protocol Stop: 07/05/21 20:59 Last Infusion: 07/05/21 09:25 Dose: 0 mls/hr Documented by: [id number] Admin: 07/05/21 08:42 Dose: 100 mls/hr Documented by: [id number] Infusion: 07/05/21 03:41 Dose: 0 mls/hr Documented by: [id number] Admin: 07/05/21 03:05 Dose: 100 mls/hr Documented by: [id number] Infusion: 07/04/21 22:03 Dose: 100 mls/hr Documented by: [id number] Admin: 07/04/21 21:27 Dose: 100 mls/hr Documented by: [id number] Infusion: 07/04/21 16:06 Dose: 100 mls/hr Documented by: [id number] Admin: 07/04/21 15:30 Dose: 100 mls/hr Documented by: [id number] Infusion: 07/04/21 09:42 Dose: 0 mls/hr Documented by: [id number] Admin: 07/04/21 09:06 Dose: 100 mls/hr Documented by: [id number] Infusion: 07/04/21 04:01 Dose: 0 mls/hr Documented by: [id number] Admin: 07/04/21 03:25 Dose: 100 mls/hr Documented by: [id number] Infusion: 07/03/21 22:51 Dose: 0 mls/hr Documented by: [id number] Admin: 07/03/21 22:15 Dose: 100 mls/hr Documented by: [id number] Magnesium Sulfate/Dextrose (Magnesium Sulfate / D5w) 1 gm in 100 mls @ 50 mls/hr IV 0945 ONE Stop: 07/04/21 11:44 Last Infusion: 07/04/21 12:23 Dose: 0 mls/hr Documented by: [id number] Admin: 07/04/21 10:23 Dose: 50 mls/hr Documented by: [id number] Clindamycin Phosphate 900 mg/ (Dextrose) 56 mls @ 112 mls/hr IV Q8H [facility] Stop: 07/14/21 12:59 Last Infusion: 07/08/21 13:48 Dose: 0 mls/hr Documented by: [id number] Admin: 07/05/21 05:11 Dose: 112 mls/hr Documented by: [id number] Infusion: 07/04/21 20:44 Dose: 112 mls/hr Documented by: [id number] Admin: 07/04/21 20:14 Dose: 112 mls/hr Documented by: [id number] Infusion: 07/04/21 13:35 Dose: 0 mls/hr Documented by: [id number] Admin: 07/04/21 13:05 Dose: 112 mls/hr Documented by: [id number] Gentamicin Sulfate 500 mg/ (Dextrose) 112.5 mls @ 100 mls/hr IV Q24H [facility] Stop: 07/14/21 13:59 Last Infusion: 07/08/21 13:49 Dose: 0 mls/hr Documented by: [id number] Admin: 07/04/21 14:15 Dose: 100 mls/hr Documented by: [id number] Metronidazole (Flagyl) 500 mg in 100 mls @ 100 mls/hr IV Q8H [facility]; Protocol Stop: 07/14/21 11:59 Last Infusion: 07/08/21 13:46 Dose: 0 mls/hr Documented by: [id number] Admin: 07/08/21 03:49 Dose: 100 mls/hr Documented by: [id number] Infusion: 07/07/21 20:46 Dose: 100 mls/hr Documented by: [id number] Admin: 07/07/21 19:46 Dose: 100 mls/hr Documented by: [id number] Infusion: 07/07/21 13:18 Dose: 0 mls/hr Documented by: [id number] Admin: 07/07/21 12:06 Dose: 100 mls/hr Documented by: [id number] Infusion: 07/07/21 04:47 Dose: 100 mls/hr Documented by: [id number] Admin: 07/07/21 03:47 Dose: 100 mls/hr Documented by: [id number] Infusion: 07/06/21 20:40 Dose: 100 mls/hr Documented by: [id number] Admin: 07/06/21 19:40 Dose: 100 mls/hr Documented by: [id number] Infusion: 07/06/21 12:55 Dose: 0 mls/hr Documented by: [id number] Admin: 07/06/21 11:53 Dose: 100 mls/hr Documented by: [id number] Infusion: 07/06/21 04:33 Dose: 100 mls/hr Documented by: [id number] Admin: 07/06/21 03:33 Dose: 100 mls/hr Documented by: [id number] Infusion: 07/05/21 20:36 Dose: 100 mls/hr Documented by: [id number] Admin: 07/05/21 19:36 Dose: 100 mls/hr Documented by: [id number] Infusion: 07/05/21 12:20 Dose: 0 mls/hr Documented by: [id number] Admin: 07/05/21 11:17 Dose: 100 mls/hr Documented by: [id number] Levofloxacin/Dextrose (Levaquin/D5w) 500 mg in 100 mls @ 100 mls/hr IV Q24H [facility]; Protocol Stop: 07/14/21 13:59 Last Infusion: 07/08/21 13:46 Dose: 0 mls/hr Documented by: [id number] Admin: 07/07/21 14:02 Dose: 100 mls/hr Documented by: [id number] Infusion: 07/06/21 14:45 Dose: 0 mls/hr Documented by: [id number] Admin: 07/06/21 13:43 Dose: 100 mls/hr Documented by: [id number] Infusion: 07/05/21 14:11 Dose: 0 mls/hr Documented by: [id number] Admin: 07/05/21 13:10 Dose: 100 mls/hr Documented by: [id number] Levofloxacin/Dextrose (Levaquin/D5w) 500 mg in 100 mls @ 100 mls/hr IV ONCE ONE Stop: 07/08/21 10:23 Last Admin: 07/08/21 13:46 Dose: Not Given Documented by: [id number] Metronidazole (Flagyl) 500 mg in 100 mls @ 100 mls/hr IV ONCE ONE Stop: 07/08/21 10:25 Last Infusion: 07/08/21 13:46 Dose: 0 mls/hr Documented by: [id number] Admin: 07/08/21 09:19 Dose: 100 mls/hr Documented by: [id number] Levofloxacin/Dextrose (Levaquin/D5w) 500 mg in 100 mls @ 100 mls/hr IV ONCE ONE Stop: 07/08/21 10:29 Last Infusion: 07/08/21 13:46 Dose: 0 mls/hr Documented by: [id number] Admin: 07/08/21 08:55 Dose: 100 mls/hr Documented by: [id number] Levofloxacin/Dextrose (Levaquin/D5w) 500 mg in 100 mls @ 100 mls/hr IV ONCE ONE Stop: 07/08/21 10:29 Last Admin: 07/08/21 09:33 Dose: Not Given Documented by: [id number] Sodium Chloride (Nss 1000ml) 1,000 mls @ 75 mls/hr IV .[id number] [facility] Stop: 08/07/21 12:59 Last Infusion: 07/10/21 09:56 Dose: 0 mls/hr Documented by: [id number] Admin: 07/09/21 17:46 Dose: Not Given Documented by: [id number] Infusion: 07/09/21 16:45 Dose: 0 mls/hr Documented by: [id number] Admin: 07/09/21 15:29 Dose: Not Given Documented by: [id number] Admin: 07/09/21 07:02 Dose: 75 mls/hr Documented by: [id number] Infusion: 07/09/21 05:12 Dose: 75 mls/hr Documented by: [id number] Infusion: 07/08/21 18:34 Dose: 75 mls/hr Documented by: [id number] Infusion: 07/08/21 16:14 Dose: 0 mls/hr Documented by: [id number] Infusion: 07/08/21 14:47 Dose: 75 mls/hr Documented by: [id number] Admin: 07/08/21 14:02 Dose: 125 mls/hr Documented by: [id number] Piperacillin Sod/Tazobactam (Sod 3.375 gm/ Dextrose) 115 mls @ 230 mls/hr IV NOW ONE; Protocol Stop: 07/08/21 14:29 Last Infusion: 07/08/21 14:48 Dose: 0 mls/hr Documented by: [id number] Admin: 07/08/21 14:02 Dose: 230 mls/hr Documented by: [id number] Fentanyl Citrate (Fentanyl Drip) 1,250 mcg in 250 mls @ 30 mls/hr IV .Q8H20M [facility]; Protocol Stop: 07/22/21 13:44 Last Titration: 07/10/21 11:30 Dose: 0 mcg/hr, 0 mls/hr Documented by: [id number] Cosigned by: [id number] Admin: 07/10/21 09:18 Dose: 150 mcg/hr, 30 mls/hr Documented by: [id number] Cosigned by: [id number] Titration: 07/10/21 09:18 Dose: 150 mcg/hr, 30 mls/hr Documented by: [id number] Cosigned by: [id number] Titration: 07/10/21 06:51 Dose: 150 mcg/hr, 30 mls/hr Documented by: [id number] Cosigned by: [id number] Admin: 07/10/21 01:09 Dose: 150 mcg/hr, 30 mls/hr Documented by: [id number] Cosigned by: [id number] Titration: 07/10/21 01:06 Dose: 150 mcg/hr, 30 mls/hr Documented by: [id number] Cosigned by: [id number] Titration: 07/09/21 18:57 Dose: 150 mcg/hr, 30 mls/hr Documented by: [id number] Cosigned by: [id number] Admin: 07/09/21 17:44 Dose: Not Given Documented by: [id number] Admin: 07/09/21 17:19 Dose: Not Given Documented by: [id number] Admin: 07/09/21 16:46 Dose: 150 mcg/hr, 30 mls/hr Documented by: [id number] Cosigned by: [id number] Titration: 07/09/21 16:33 Dose: 175 mcg/hr, 35 mls/hr Documented by: [id number] Cosigned by: [id number] Admin: 07/09/21 09:24 Dose: 175 mcg/hr, 35 mls/hr Documented by: [id number] Cosigned by: [id number] Titration: 07/09/21 09:03 Dose: 175 mcg/hr, 35 mls/hr Documented by: [id number] Cosigned by: [id number] Titration: 07/09/21 02:33 Dose: 175 mcg/hr, 35 mls/hr Documented by: [id number] Cosigned by: [id number] Admin: 07/09/21 01:48 Dose: 150 mcg/hr, 30 mls/hr Documented by: [id number] Cosigned by: [id number] Titration: 07/09/21 01:48 Dose: 150 mcg/hr, 30 mls/hr Documented by: [id number] Cosigned by: [id number] Titration: 07/08/21 22:53 Dose: 150 mcg/hr, 30 mls/hr Documented by: [id number] Cosigned by: [id number] Admin: 07/08/21 22:34 Dose: Not Given Documented by: [id number] Titration: 07/08/21 18:55 Dose: 175 mcg/hr, 35 mls/hr Documented by: [id number] Cosigned by: [id number] Admin: 07/08/21 18:46 Dose: 150 mcg/hr, 30 mls/hr Documented by: [id number] Cosigned by: [id number] Titration: 07/08/21 18:46 Dose: 150 mcg/hr, 30 mls/hr Documented by: [id number] Cosigned by: [id number] Titration: 07/08/21 14:59 Dose: 150 mcg/hr, 30 mls/hr Documented by: [id number] Cosigned by: [id number] Titration: 07/08/21 14:11 Dose: 100 mcg/hr, 20 mls/hr Documented by: [id number] Cosigned by: [id number] Titration: 07/08/21 14:09 Dose: 50 mcg/hr, 10 mls/hr Documented by: [id number] Cosigned by: [id number] Admin: 07/08/21 13:53 Dose: 25 mcg/hr, 5 mls/hr Documented by: [id number] Cosigned by: [id number] Midazolam HCl (Versed) 125 mg in 250 mls @ 10 mls/hr IV .Q25H PRN; Protocol PRN Reason: Agitation Stop: 08/07/21 13:35 Last Titration: 07/10/21 11:30 Dose: 0 mg/hr, 0 mls/hr Documented by: [id number] Cosigned by: [id number] Titration: 07/10/21 09:50 Dose: 5 mg/hr, 10 mls/hr Documented by: [id number] Cosigned by: [id number] Titration: 07/10/21 09:00 Dose: 6 mg/hr, 12 mls/hr Documented by: [id number] Cosigned by: [id number] Titration: 07/10/21 08:00 Dose: 6.5 mg/hr, 13 mls/hr Documented by: [id number] Cosigned by: [id number] Titration: 07/10/21 06:51 Dose: 7 mg/hr, 14 mls/hr Documented by: [id number] Cosigned by: [id number] Titration: 07/09/21 18:57 Dose: 7 mg/hr, 14 mls/hr Documented by: [id number] Cosigned by: [id number] Titration: 07/09/21 17:21 Dose: 7 mg/hr, 14 mls/hr Documented by: [id number] Cosigned by: [id number] Admin: 07/09/21 16:52 Dose: 6 mg/hr, 12 mls/hr Documented by: [id number] Cosigned by: [id number] Titration: 07/09/21 16:52 Dose: 8 mg/hr, 16 mls/hr Documented by: [id number] Cosigned by: [id number] Titration: 07/09/21 10:43 Dose: 8 mg/hr, 16 mls/hr Documented by: [id number] Cosigned by: [id number] Admin: 07/09/21 01:48 Dose: 7 mg/hr, 14 mls/hr Documented by: [id number] Cosigned by: [id number] Titration: 07/09/21 01:48 Dose: 7 mg/hr, 14 mls/hr Documented by: [id number] Cosigned by: [id number] Titration: 07/08/21 22:53 Dose: 7 mg/hr, 14 mls/hr Documented by: [id number] Cosigned by: [id number] Titration: 07/08/21 20:00 Dose: 7 mg/hr, 14 mls/hr Documented by: [id number] Cosigned by: [id number] Titration: 07/08/21 18:54 Dose: 6.5 mg/hr, 13 mls/hr Documented by: [id number] Cosigned by: [id number] Titration: 07/08/21 18:00 Dose: 6 mg/hr, 12 mls/hr Documented by: [id number] Cosigned by: [id number] Titration: 07/08/21 17:00 Dose: 5.5 mg/hr, 11 mls/hr Documented by: [id number] Cosigned by: [id number] Titration: 07/08/21 16:00 Dose: 5 mg/hr, 10 mls/hr Documented by: [id number] Cosigned by: [id number] Titration: 07/08/21 14:58 Dose: 4 mg/hr, 8 mls/hr Documented by: [id number] Cosigned by: [id number] Titration: 07/08/21 14:12 Dose: 3 mg/hr, 6 mls/hr Documented by: [id number] Cosigned by: [id number] Titration: 07/08/21 14:09 Dose: 1.5 mg/hr, 3 mls/hr Documented by: [id number] Cosigned by: [id number] Admin: 07/08/21 13:56 Dose: 1 mg/hr, 2 mls/hr Documented by: [id number] Cosigned by: [id number] Magnesium Sulfate/Dextrose (Magnesium Sulfate / D5w) 1 gm in 100 mls @ 50 mls/hr IV Q2H [facility] Stop: 07/08/21 18:29 Last Infusion: 07/08/21 18:35 Dose: 0 mls/hr Documented by: [id number] Admin: 07/08/21 16:50 Dose: 50 mls/hr Documented by: [id number] Infusion: 07/08/21 16:50 Dose: 50 mls/hr Documented by: [id number] Admin: 07/08/21 15:06 Dose: 50 mls/hr Documented by: [id number] Calcium Gluconate 1,000 mg/ (Sodium Chloride) 60 mls @ 240 mls/hr IV TODAY@1430 ONE Stop: 07/08/21 14:44 Last Infusion: 07/08/21 15:56 Dose: 0 mls/hr Documented by: [id number] Admin: 07/08/21 14:50 Dose: 240 mls/hr Documented by: [id number] Calcium Gluconate 1,000 mg/ (Sodium Chloride) 60 mls @ 240 mls/hr IV TODAY@1130 ONE Stop: 07/09/21 11:44 Last Infusion: 07/09/21 11:46 Dose: 0 mls/hr Documented by: [id number] Admin: 07/09/21 11:25 Dose: 240 mls/hr Documented by: [id number] Vancomycin HCl 1,500 mg/ (Sodium Chloride) 530 mls @ 200 mls/hr IV ONE ONE Stop: 07/10/21 17:08 Last Infusion: 07/10/21 17:38 Dose: 0 mls/hr Documented by: [id number] Admin: 07/10/21 14:58 Dose: 200 mls/hr Documented by: [id number] Vancomycin HCl 1,000 mg/ (Sodium Chloride) 270 mls @ 200 mls/hr IV Q12H [facility] Stop: 07/21/21 03:59 Last Infusion: 07/11/21 05:25 Dose: 0 mls/hr Documented by: [id number] Infusion: 07/11/21 03:55 Dose: 200 mls/hr Documented by: [id number] Infusion: 07/11/21 03:27 Dose: 0 mls/hr Documented by: [id number] Admin: 07/11/21 03:09 Dose: 200 mls/hr Documented by: [id number] Ibuprofen (Ibuprofen 600 Mg Tab) 600 mg PO Q6H PRN PRN Reason: Pain Stop: 08/03/21 16:14 Last Admin: 07/07/21 21:12 Dose: 600 mg Documented by: [id number] Admin: 07/07/21 08:14 Dose: 600 mg Documented by: [id number] Admin: 07/06/21 12:07 Dose: 600 mg Documented by: [id number] Admin: 07/06/21 01:32 Dose: 600 mg Documented by: [id number] Admin: 07/05/21 11:23 Dose: 600 mg Documented by: [id number] Admin: 07/05/21 05:10 Dose: 600 mg Documented by: [id number] Admin: 07/04/21 20:13 Dose: 600 mg Documented by: [id number] Ioversol (Optiray 320 100ml) 94 ml IV ONCE ONE Stop: 07/03/21 15:22 Last Admin: 07/03/21 15:21 Dose: 94 ml Documented by: [id number] Ioversol (Optiray 320 100ml) 93 ml IV ONCE ONE Stop: 07/07/21 09:43 Last Admin: 07/07/21 09:43 Dose: 93 ml Documented by: [id number] Ketorolac Tromethamine (Ketorolac Tromethamine 15 Mg/Ml Vial) 15 mg IV NOW ONE Stop: 07/03/21 14:48 Last Admin: 07/03/21 15:11 Dose: 15 mg Documented by: [id number] Ketorolac Tromethamine (Ketorolac Tromethamine 15 Mg/Ml Vial) 15 mg IV NOW ONE Stop: 07/03/21 21:45 Last Admin: 07/04/21 00:22 Dose: Not Given Documented by: [id number] Ketorolac Tromethamine (Ketorolac Tromethamine 15 Mg/Ml Vial) Confirm Administered Dose 15 mg .ROUTE .STK-MED ONE Stop: 07/03/21 22:10 Last Admin: 07/03/21 22:16 Dose: 15 mg Documented by: [id number] Ketorolac Tromethamine (Ketorolac Tromethamine 15 Mg/Ml Vial) 15 mg IV Q6H PRN PRN Reason: Pain Stop: 07/12/21 22:39 Last Admin: 07/08/21 03:46 Dose: 15 mg Documented by: [id number] Lactobacillus Acidophilus (Lactobacillus Acidophilus 1 Gm Pack) 1 gm PO TIDM [facility] Stop: 08/05/21 11:59 Last Admin: 07/08/21 13:50 Dose: Not Given Documented by: [id number] Admin: 07/08/21 13:50 Dose: Not Given Documented by: [id number] Admin: 07/08/21 13:49 Dose: Not Given Documented by: [id number] Admin: 07/07/21 12:35 Dose: Not Given Documented by: [id number] Admin: 07/07/21 08:15 Dose: 1 gm Documented by: [id number] Admin: 07/06/21 16:54 Dose: 1 gm Documented by: [id number] Admin: 07/06/21 12:02 Dose: 1 gm Documented by: [id number] Lansoprazole (Lansoprazole 30 Mg Soltab) 30 mg PO QAM [facility] Stop: 08/07/21 14:14 Last Admin: 07/10/21 08:01 Dose: 30 mg Documented by: [id number] Admin: 07/09/21 09:24 Dose: 30 mg Documented by: [id number] Admin: 07/08/21 16:14 Dose: 30 mg Documented by: [id number] Midazolam HCl (Midazolam Hcl 125mg/250ml D5w) Confirm Administered Dose 125 mg .ROUTE .STK-MED ONE Stop: 07/08/21 12:34 Last Admin: 07/08/21 13:44 Dose: Not Given Documented by: [id number] Midazolam HCl (Midazolam Bolus From Bag) 2 mg IV Q60M PRN PRN Reason: Sedation Stop: 08/07/21 13:35 Last Admin: 07/09/21 10:43 Dose: 2 mg Documented by: [id number] Admin: 07/08/21 20:35 Dose: 2 mg Documented by: [id number] Admin: 07/08/21 18:54 Dose: 2 mg Documented by: [id number] Miscellaneous (Icu Electrolyte Replacement Protocol) 1 ea N/A BID@ [facility]; Protocol Stop: 07/15/21 17:59 Last Admin: 07/10/21 11:02 Dose: Not Given Documented by: [id number] Admin: 07/10/21 06:44 Dose: Not Given Documented by: [id number] Admin: 07/09/21 08:57 Dose: Not Given Documented by: [id number] Admin: 07/09/21 05:23 Dose: Not Given Documented by: [id number] Admin: 07/08/21 16:14 Dose: Not Given Documented by: [id number] Nifedipine (Nifedipine Extended Rel 30 Mg Tabcr) 30 mg PO [facility] Stop: 08/03/21 08:59 Last Admin: 07/08/21 13:45 Dose: Not Given Documented by: [id number] Admin: 07/07/21 08:57 Dose: 30 mg Documented by: [id number] Admin: 07/06/21 09:00 Dose: 30 mg Documented by: [id number] Admin: 07/05/21 08:57 Dose: 30 mg Documented by: [id number] Admin: 07/04/21 09:07 Dose: 30 mg Documented by: [id number] Ondansetron HCl (Ondansetron Inj 2 Mg/Ml 2 Ml Vial) 4 mg IV Q6H PRN PRN Reason: Nausea And Vomiting Stop: 08/02/21 17:59 Last Admin: 07/06/21 23:50 Dose: 4 mg Documented by: [id number] Admin: 07/05/21 18:06 Dose: 4 mg Documented by: [id number] Oxycodone/Acetaminophen (Oxycodone/Acetaminophen 5mg/325mg Tab) 1 tab PO Q4H PRN PRN Reason: Pain Stop: 07/17/21 21:40 Last Admin: 07/04/21 15:28 Dose: 1 tab Documented by: [id number] Pantoprazole Sodium (Pantoprazole 40 Mg Tab) 40 mg PO DAILY [facility] Stop: 08/03/21 08:59 Last Admin: 07/08/21 13:46 Dose: Not Given Documented by: [id number] Admin: 07/07/21 08:57 Dose: 40 mg Documented by: [id number] Admin: 07/06/21 09:00 Dose: 40 mg Documented by: [id number] Admin: 07/05/21 08:57 Dose: 40 mg Documented by: [id number] Admin: 07/04/21 09:51 Dose: 40 mg Documented by: [id number] Potassium Chloride (Potassium Chloride Crtab 20 Meq Tabcr) 40 meq PO ONE ONE Stop: 07/04/21 08:18 Last Admin: 07/04/21 09:18 Dose: 40 meq Documented by: [id number]
--- NOTE | 2021-07-11 10:22 | Surgery Progress Note ---
Date of Service July 11, 2021 Assessment & Plan (1) TOA (tubo-ovarian abscess): Plan: -Start sips of clears -Continue IV ABX -Continue drain -Pain control PRN (2) Small bowel obstruction: Admission and Anticipated Discharge Date Admission Date: July 03, 2021 Subjective Pt seen and examined. Pain not well controlled. Afebrile. NO N/V. No flatus of BM. Physical Exam Gastrointestinal (Abdomen): soft/appropriately TTP, drain in place with serous output, dressing c/d/i Results & Data ([facility]) Vital Signs (Past 12 Hours) Vital Signs Temp Pulse Pulse Resp BP BP Pulse Ox 07/11/21 08:17 36.7 C 91 H 18 151/87 H 94 07/11/21 05:00 96 H 07/11/21 04:00 37.4 C 94 H 26 H 145/85 H 93 07/11/21 03:00 92 H 22 144/85 H 93 07/11/21 02:00 92 H 21 144/82 H 93 07/11/21 01:00 93 H 24 142/81 H 94 07/11/21 00:00 37.5 C 93 H 24 144/81 H 93 07/10/21 23:34 97 H 07/10/21 23:00 99 H 24 124/76 92 PG Care Time/CCT Total # of Minutes Spent Total Time Spent with Patient: Total time spent is greater than 50% in coordination of care (as documented) at patient's floor/unit and/or counseling patient: Coding Level of Care Code None Diagnoses TOA (tubo-ovarian abscess) N70.93 Small bowel obstruction K56.609
[2021-07-11] MEDS ORDERED: ACETAMINOPHEN 10MG/ML PEDIATRIC DOSING IV STA (13:52)
[2021-07-11] MEDS ORDERED: traMADol HCL 50 MG TABLET PO STA (13:52)
[2021-07-11] MEDS ORDERED: ACETAMINOPHEN 1,000 MG/100 ML VIAL IV STA (13:57)
[2021-07-11] MEDS: VANCOMYCIN HCL 1,250 MG in SODIUM CHLORIDE 0.9% 250 ML IV SCH (16:11)
[2021-07-12] MEDS: HYDROmorphone INJ 1 MG/ML SYRINGE IV PRN ×4 (01:03→13:18)
[2021-07-12] MEDS: SODIUM CHLORIDE 0.9% 1000ML 1,000 ML IV SCH ×3 (01:07→20:11)
[2021-07-12] MEDS: traMADol HCL 50 MG TABLET PO PRN ×4 (01:07→22:27)
[2021-07-12] MEDS: PIPERACILLIN/TAZOBACTAM 3.375 GM in DEXTROSE 5% 100 ML IV SCH ×3 (03:23→18:43)
[2021-07-12] MEDS: VANCOMYCIN HCL 1,250 MG in SODIUM CHLORIDE 0.9% 250 ML IV SCH ×3 (03:23→18:43)
--- NOTE | 2021-07-12 08:02 | Hospitalist Progress Note ---
Date of Service July 12, 2021 Assessment & Plan (1) TOA (tubo-ovarian abscess): Plan: Sepsis 2/2 tubo-ovarian abscess S/P laparotomy, drainage of right tubo-ovarian abscess, bilateral salpingo- oophorectomy POD #4 S/P Reexploration Abdominal Laparotomy, Abdominal Washout, Abdominal Wall Closure POD #2 Blood Cx: Negative to date Serology for chlamydia, Neisseria negative Peritoneal fluid culture growing staph species and corynebacterium - final Abdominal wound growing alpha strep, gram-negative bacilli - final WBC downtrending from 25.67 to 21.77 today Appreciate input from general surgery and obgyn Continue Wound Care, antibiotic coverage with IV vanco and Zosyn ID consulted for assistance with deescalation of abx NPO for now with sips of clears per surgery Continue IVF IV famotidine for GI prophylaxis Adding scheduled tylenol and PRN toradol to pain regimen of PRN dilaudid and tramadol PT/OT evaluations ordered, encourage ambulation Small bowel obstruction Extensive pelvic inflammatory phlegmon S/P right hemicolectomy, omentectomy, sigmoid serosal tear repair POD #4 S/P Reexploration Abdominal Laparotomy, Abdominal Washout, Abdominal Wall Closure POD #2 No bowel regimen to be ordered at this time, per surgery Management as above (2) Positive test: Plan: Initial hcg is positive, hcg quant of 3 Pelvic ultrasound without intrauterine gestational sac (3) Hypertension: Plan: BP slightly elevated Monitor, likely 2/2 to pain (4) Hypomagnesemia: Plan: repleted, monitor (5) Hypokalemia: Plan: repleted, monitor (6) UTI (urinary tract infection): Plan: Urine Cx growing smith sensitive E coli IV cefoxitin, Levaquin>> zosyn Treated - castro cath remains in place Diarrhea stool for c diff Negative DVT Px: Teds, scds Start SQ Lovenox tomorrow, okay with surgery Disposition: Per primary service Patient was seen and examined in collaboration with Dr. Renner, please see addendum Thank you for this consultation. We will follow the patient with you during their hospital stay. You can reach a member of the [facility] Hospitalist Team 19/05 via hospitalist role on tiger text. Plan: I have seen and examined the patient and have discussed the case with the provider above. I agree with the assessment and plan as stated. 46 yo F s/p R hemicolectomy by Dr. Batista on 07/08 followed by re-exploration abdominal laparotomy with washout on 07/10. Pain has been controlled with frequent pushes of dilaudid 1mg intravenously every couple of hours overnight. This is an issue with respect to opiate induced constipation and creating addiction. It is clear her pain is not well managed. She was encouraged to use oral narcotics instead and will utilize more non-narcotic Tylenol and NSAIDs in the background. Remains NPO allowed small sips with meds. No flatus or BM yet. Still not m obilizing much. Physical exam as above. Dressing over abdominal wound was c/d/i-incisions were not directly visualized. Abdomen is soft, ND. Pain seems to be mostly incisional. Cont management above. She continues on vanc/zosyn-ID consult was placed for assistance with de-escalation of antibiotics which I agree with as wounds are growing multiple organisms. DO Zurdo Admission and Anticipated Discharge Date Admission Date: July 03, 2021 Subjective Patient was seen and examined in room 243. Follow-up tubo-ovarian abscess status post exploratory laparotomy with reexploration, abdominal washout and abdominal wall closure. Abdominal pain 4/10. Exacerbated with movement and deep breaths. Denies nausea, not passing flatus. No fever, chills, lightheadedness, dizziness, CP, SOB,nausea, vomiting, dysuria. Castro catheter in place draining urine. Review of Systems Review of Systems: At least ten systems reviewed and negative except as noted in the HPI. Physical Exam Physical Exam: General Appearance: WD/WN, vitals as above, NAD, sitting up in bed, conversing without issue Head: normocephalic, atraumatic Eyes: normal inspection, PERRL, conjunctivae normal, anicteric sclerae ENT: external ear and nose normal, oropharynx normal Neck: normal visual inspection, trachea midline, no thyromegaly Respiratory: normal respiratory effort, lungs clear to auscultation, no wheeze, rales, rhonchi. No accessory muscle use Cardiovascular: regular rate, rhythm, no murmur, normal peripheral pulses, no B LE edema. Vessels: no JVD Chest: normal inspection of chest Abdomen/GI: normal bowel sounds, soft, mild bilateral suprapubic TTP, dressing c/d/i, FREDDIE drain with minimal output. No hepatosplenomegaly Extremities/Musculoskeletal: no cyanosis or clubbing, extremities motor strength 5/5 Neurologic: PERRL, CN's II-XI intact bilaterally and moves all extremities Psychiatric: A+Ox3, flattened affect Skin: no rashes, normal color, warm/dry Results & Data Results & Data ([facility]) Vital Signs (Past 12 Hours) Vital Signs Temp Pulse Pulse Pulse Resp BP BP 07/12/21 07:50 36.6 C 80 16 159/89 H 07/12/21 03:26 36.9 C 94 H 18 137/85 07/11/21 22:58 36.8 C 90 18 149/87 H 07/11/21 22:20 85 07/11/21 20:05 155/85 H Pulse Ox 07/12/21 07:50 95 07/12/21 03:26 93 07/11/21 22:58 93 07/11/21 22:20 07/11/21 20:05 Laboratory Results Short CBC 07/12/21 Range/Units 08:18 WBC 21.77 H (4.8-10.8) K/uL Hgb 11.0 L (12.0-16.0) g/dL Hct 33.8 L (37-47) % Plt Count 559 H (130-400) K/uL BMP 07/12/21 08:18 Creatinine 0.49 L Diagnostic Findings Abdomen/Pelvis CT 07/03/21 14:38 CT abd pelvis IV con only CLINICAL HISTORY: fever abd pain COMPARISON STUDY: None. TECHNIQUE: A dose lowering technique was utilized adhering to the principles of ALARA. CT DOSE: 584.97 mGycm FINDINGS: Lower chest: Limited evaluation of lung bases shows no evidence of acute abnormalities.. Liver: The contrast-enhanced liver is normal in size, contour, and attenuation. There is no intrahepatic biliary ductal dilatation. The hepatic veins and portal veins are patent. Focal calcification is seen within right lobe of the liver. Gallbladder: Unremarkable. Spleen: Normal in size and attenuation. Pancreas: Unremarkable. Adrenal glands: Unremarkable. Kidneys: There is symmetric renal cortical enhancement. The kidneys are normal in size without hydronephrosis. Pelvic viscera: Urinary bladder is partially decompressed which limits evaluation. Uterine cavity is mildly enlarged. Tubular hypoattenuating lesions with mucosal thickening, septation, enhancement and surrounding edema is seen. Small amount of free fluid is seen within cul-de-sac. Bowel: Bowel loops are nondilated. Appendix is not well seen. Loops of large bow el are fluid-filled which could be seen in diarrheal state. Mild diverticulosis of sigmoid colon is seen which is associated with mild surrounding fat stranding which might represent developing diverticulitis or reactive changes due to adjacent inflammatory pelvic process. Peritoneum: There is no intraperitoneal free air or abdominal ascites. Vasculature: The abdominal aorta is normal in course and caliber. Adenopathy: None. Skeletal structures: Minimal degenerative changes of the spine. IMPRESSION: 1. Tubular hypoattenuating lesions with septation, mucosal enhancement and thickening as well as surrounding edema could represent pyosalpinx/tubo-ovarian abscess. Further [employer] evaluation and possible pelvic ultrasound might be considered . 2. Diverticulosis of sigmoid colon colon is seen with mild surrounding fat stranding which might represent reactive changes due to close proximity a dose of pelvic inflammatory process versus developing diverticulitis which is less likely. 3. The rest of findings as above. ACT 112: Negative or not required by law. The above report was generated using voice recognition software. It may contain grammatical, syntax or spelling errors. Electronically signed by: Neela Barrera DO 07/03/2021 4:07 PM Transvaginal US 07/03/21 18:15 PELVIC ULTRASOUND CLINICAL HISTORY: suspected TOA with +ve test COMPARISON STUDY: CT of the abdomen and pelvis performed earlier today. TECHNIQUE: Transabdominal and transvaginal sonography of the pelvis was performed. FINDINGS: Uterus measures 9.7 x 4.3 x 5.2 cm. Endometrium measures 4 mm in thickness. No intrauterine gestational sac is identified. There is a small amount of fluid within the pelvis. Left ovary is sonographically normal on transabdominal exam, measuring 2.3 x 1.7 x 2.5 cm. The right ovary is partially obscured, measuring approximately 2.9 x 2.1 x 2.3 cm. Color flow is identified within each ovary. Note is made of a complex superior right adnexal fluid collection, adjacent to the ovary and superior aspect of the uterus. This extends to the midline. This corresponds to the fluid collection shown on CT performed earlier today. Measurements are difficult to obtain by sonography however this measures approximately 6 x 4 cm. This contains hypoechoic material. IMPRESSION: 1. Complex multiloculated collection within the superior right adnexa, adjacent to the right ovary and superior aspect of the uterus extending to the midline. This corresponds to the collection shown on CT. Measurements difficult to obtain by sonography however the largest component measures approximately 6 x 4 cm. This is suggestive of a tubo-ovarian abscess. 2. No intrauterine gestational sac identified. This could be correlated with beta hCG levels. 3. Small amount of fluid within the pelvis. ACT 112: Negative or not required by law. Electronically signed by: Dayron Garcia M.D. 07/03/2021 7:48 PM Pelvis Ultrasound 07/03/21 18:16 PELVIC ULTRASOUND CLINICAL HISTORY: suspected TOA with +ve test COMPARISON STUDY: CT of the abdomen and pelvis performed earlier today. TECHNIQUE: Transabdominal and transvaginal sonography of the pelvis was performed. FINDINGS: Uterus measures 9.7 x 4.3 x 5.2 cm. Endometrium measures 4 mm in thickness. No intrauterine gestational sac is identified. There is a small amount of fluid within the pelvis. Left ovary is sonographically normal on transabdominal exam, measuring 2.3 x 1.7 x 2.5 cm. The right ovary is partially obscured, measuring approximately 2.9 x 2.1 x 2.3 cm. Color flow is identified within each ovary. Note is made of a complex superior right adnexal fluid collection, adjacent to the ovary and superior aspect of the uterus. This extends to the midline. This corresponds to the fluid collection shown on CT performed earlier today. Measurements are difficult to obtain by sonography however this measures approximately 6 x 4 cm. This contains hypoechoic material. IMPRESSION: 1. Complex multiloculated collection within the superior right adnexa, adjacent to the right ovary and superior aspect of the uterus extending to the midline. This corresponds to the collection shown on CT. Measurements difficult to obtain by sonography however the largest component measures approximately 6 x 4 cm. This is suggestive of a tubo-ovarian abscess. 2. No intrauterine gestational sac identified. This could be correlated with beta hCG levels. 3. Small amount of fluid within the pelvis. ACT 112: Negative or not required by law. Electronically signed by: Dayron Garcia M.D. 07/03/2021 7:48 PM Abdomen/Pelvis CT 09/11/21 09:[address] WITH IV CONTRAST CT DOSE: 372.56 mGy.cm HISTORY: Follow up study in a patient with pulmonary abscess tuboovarian abscess, elevated WBC TECHNIQUE: Multiaxial CT images of the abdomen and pelvis were performed following the IV administration of 93 cc of Optiray, A dose lowering technique was utilized adhering to the principles of ALARA. COMPARISON STUDY: Pelvic ultrasound and CT abdomen and pelvis studies 07/03/2021 FINDINGS: Imaged inferior cardiac chambers are unremarkable. Trace left and small right pleural effusions, new from comparison. Minimal subsegmental bibasilar atelectasis. Unremarkable spleen, pancreas, adrenal glands, contracted gallbladder and liver. Patency of the hepatic and portal veins. Indeterminate ill-defined 9 mm hypodense focus of the posterior right hepatic lobe. Alston bcentimeter calcification of the right hepatic lobe. Unremarkable kidneys. No hydronephrosis. Dilation of the right ureter is likely reactive secondary to the inflammatory changes within the pelvis as below. Unremarkable urinary bladder, uterus and left adnexum. Multiloculated air and fluid-filled collection within the right hemipelvis measuring 9.6 x 7.9 cm on image 69 series 3 previously measured approximately 8.0 x 7.3 cm when measured in a similar fashion on comparison study. The amount of air within this collection has increased from comparison. Moderate surrounding inflammatory stranding. Interval development of numerous air and fluid-filled dilated loops of small bowel within the abdomen and pelvis with decompressed terminal ileum. Transition point is noted within the abdominal right lower quadrant adjacent to the adnexal fluid collection. Decompressed ileum with mild colonic diverticulosis. Interloop edema with trace abdominal pelvic ascites. Mild wall thickening of the distal stomach may be secondary to partial distention. A pill fragment is also present within the distal stomach. No acute fracture. IMPRESSION: 1. Mildly increased size of the multiloculated air and fluid-filled peripherally enhancing collection of the right hemipelvis suggestive of a tubo-ovarian abscess measuring up to approximately 9.6 x 7.9 cm. 2. Interval development of a small bowel obstruction with transition point within the abdominal right lower quadrant adjacent to the abscess. 3. Trace abdominal pelvic ascites with small right and trace left pleural effusions. ACT 112: Negative or not required by law. The above report was generated using voice recognition software. It may contain grammatical, syntax or spelling errors. Electronically signed by: Fausto Morrison M.D. 07/07/2021 10:43 AM Chest X-Ray 07/08/21 12:49 XR chest 1V portable HISTORY: Endotracheal tube placement. COMPARISON: None. FINDINGS: No pneumothorax. No pleural effusions. The endotracheal tube terminates approximately 5 cm from the abbie. Nasogastric tube terminates in the proximal stomach. No focal lung consolidations to suggest pneumonia. No kourtney dence for pulmonary edema. IMPRESSION: 1. The endotracheal tube terminates 5 cm from the abbie. This could be advanced by approximately 2 cm. 2. Nasogastric tube terminates in the proximal stomach. This could also be advanced by approximately 5 cm. ACT 112: Negative or not required by law. Electronically signed by: Sony Xavier M.D. 07/08/2021 1:29 PM KUB X-Ray 07/08/21 12:49 KUB HISTORY: OGT placement COMPARISON: Abdomen and pelvis CT 07/07/2021. FINDINGS: Nasogastric tube terminates in the proximal stomach. This should be advanced by approximately 5 to 10 cm. Dilated gas-filled loops of small bowel seen within the abdomen. This suggests a postoperative ileus. There are skin hernán within the lower abdomen. There are suture material within the right midabdomen. No renal calculi. No ureteral calculi. No pneumoperitoneum or pneumatosis. IMPRESSION: Nasogastric tube terminates in the proximal stomach. This should be advanced by approximately 5 to 10 cm. ACT 112: Negative or not required by law. Electronically signed by: Sony Xavier M.D. 07/08/2021 1:30 PM Chest X-Ray 07/09/21 16:39 XR chest 1V portable CLINICAL HISTORY: hypoxia COMPARISON STUDY: July 08, 2021 FINDINGS: No pneumothorax. No pleural effusion. Minimal atelectasis at bilateral bases. Persistent mild elevation of the right hemidiaphragm. Cardiomediastinal silhouette is within normal limits in size. No significant pulmonary vascular congestion.. Osseous structures: unremarkable Tip of endotracheal tube is projecting 4.3 cm above abbie. Stable position of gastric tube with tip and fenestrated side-port outside of [id number] and below level of hemidiaphragm. IMPRESSION: 1. Minimal atelectasis at bilateral bases, stable since prior. 2. Support apparatus as above. ACT 112: Negative or not required by law. The above report was generated using voice recognition software. It may contain grammatical, syntax or spelling errors. Electronically signed by: Neela Barrera DO 07/09/2021 5:07 PM
[2021-07-12] MEDS: FAMOTIDINE 20 MG in SYRINGE 3 ML IV SCH ×2 (08:05→20:11)
[2021-07-12 08:41] LABS: Hematocrit (blood only) 33.8 % (37-47); Mean Corpuscular Hemoglobin 31.3 pg (25-34); Mean Corpuscular Hgb Conc 32.5 g/dL (32-36); Mean Platelet Volume 8.9 fL (7.4-10.4); Platelet Count 559 K/uL (130-400); RDW Standard Deviation 48.8 fL (36.4-46.3); Red Blood Count 3.52 M/uL (4.2-5.4); White Blood Count 21.77 K/uL (4.8-10.8)
[2021-07-12 09:06] LABS: Est GFR (African American) 136.4 ml/min; Est GFR (Non-African American) 117.7 ml/min
[2021-07-12 09:14] LABS: Phosphorus 2.7 mg/dl (2.5-4.9)
[2021-07-12 09:56] LABS: ALC (manual) 0.94 K/uL (1.2-3.4); ANC (manual) 18.94 K/uL (1.4-6.5); Lymphocytes # (manual) 0.94 K/uL (1.2-3.4); Lymphocytes % (manual) 4.3 %; Metamyelocytes % (manual) 0.9 %; Monocytes # (manual) 1.13 K/uL (0.11-0.59); Monocytes % (manual) 5.2 %; Myelocytes # (manual) 0.57 K/uL (0-0); Myelocytes % (manual) 2.6 %; Neutrophils # (manual) 18.94 K/uL (1.4-6.5)
--- NOTE | 2021-07-12 10:43 | Surgery Progress Note ---
Date of Service July 12, 2021 Assessment & Plan (1) TOA (tubo-ovarian abscess): Plan: -Contniue sips of clears -Continue IV ABX -Continue drain -Pain control PRN -Remove Coombs -Repeat labs in AM, WBC trending down (2) Small bowel obstruction: Admission and Anticipated Discharge Date Admission Date: July 03, 2021 Subjective Pt seen and examined. No flatus or BM. No N/V. Abdominal pain improved from yesterday. Afebrile. Physical Exam Gastrointestinal (Abdomen): soft/appropriately TTP, drain in place with serous output, dressing c/d/i Results & Data ([facility]) Vital Signs (Past 12 Hours) Vital Signs Temp Pulse Pulse Resp BP BP Pulse Ox 07/12/21 07:50 36.6 C 80 16 159/89 H 95 07/12/21 03:26 36.9 C 94 H 18 137/85 93 07/11/21 22:58 36.8 C 90 18 149/87 H 93 PG Care Time/CCT Total # of Minutes Spent Total Time Spent with Patient: Total time spent is greater than 50% in coordination of care (as documented) at patient's floor/unit and/or counseling patient: Coding Level of Care Code None Diagnoses TOA (tubo-ovarian abscess) N70.93 Small bowel obstruction K56.609
[2021-07-12] MEDS ORDERED: HYDROmorphone INJ 0.5 MG/0.5 ML SYR IV PRN (13:30)
[2021-07-12] MEDS ORDERED: ACETAMINOPHEN 1000 MG/100 ML IV IV SCH ×2 (14:45→21:00)
--- NOTE | 2021-07-12 15:28 | Gynecologic Progress Note ---
Date of Service July 12, 2021 Assessment & Plan Admission and Anticipated Discharge Date Admission Date: July 03, 2021 Subjective Patient is seen and examined in room 243 Feels well, no complaints other than incisional pain Pain is under control with meds No CP/ SOB/ fever/ chills/Dizziness/ N&V/ VB/ Leg pain Not OOB yet Coombs was removed and has not voided yet. Tolerating sips of clears No flatus Explained about the surgery and findings Vital Signs Temp Pulse Pulse Resp BP Pulse Ox 07/12/21 11:54 36.7 C 80 16 171/92 H 95 07/12/21 07:50 36.6 C 80 16 159/89 H 95 07/12/21 03:26 36.9 C 94 H 18 137/85 93 07/12/21 07/12/21 Range/Units 08:18 08:18 WBC 21.77 H (4.8-10.8) K/uL RBC 3.52 L (4.2-5.4) M/uL Hgb 11.0 L (12.0-16.0) g/dL Hct 33.8 L (37-47) % MCV 96.0 (80-100) fL MCH 31.3 (25-34) pg MCHC 32.5 (32-36) g/dL RDW Std Deviation 48.8 H (36.4-46.3) fL RDW Coeff of Baljeet 14.0 (11.5-14.5) % Plt Count 559 H (130-400) K/uL MPV 8.9 (7.4-10.4) fL Neutrophils % (Manual) 87.0 % Lymphocytes % (Manual) 4.3 % Monocytes % (Manual) 5.2 % Metamyelocytes % (Man) 0.9 % Myelocytes % (Man) 2.6 % Neutrophils # (Manual) 18.94 H (1.4-6.5) K/uL Total Absolute Neuts 18.94 H (1.4-6.5) K/uL Lymphocytes # (Manual) 0.94 L (1.2-3.4) K/uL Total Abs Lymphocytes 0.94 L (1.2-3.4) K/uL Monocytes # (Manual) 1.13 H (0.11-0.59) K/uL Metamyelocytes # (Man) 0.20 H (0-0) K/uL Myelocytes # (Manual) 0.57 H (0-0) K/uL Creatinine 0.49 L (0.6-1.2) mg/dl Est Cr Clr Drug Dosing 141.0 ml/min Est GFR ( Amer) 136.4 ml/min Est GFR (Non-Af Amer) 117.7 ml/min Phosphorus 2.7 (2.5-4.9) mg/dl PE: General: Alert, orientedx3, NAD CVS: S1S2 RRR Lungs: CTAB Abd: soft, appropriately tender, mildly distended, Incisions C/D/I, hernán intact, draining serosanginous fluid into FREDDIE drain, small from clark drain No VB Ext: NT, no edema, AP: 46 yo female s/p Exp. Lap, drainage of TOA, ROMÁN, Right hemicolectomy , pod#4, then 2nd surgery with G surgery team on 07/10 VSS Afebrile doing well WBCC trending down today Continue to monitor closely Orders per G surgery Results & Data ([facility]) Vital Signs (Past 12 Hours) Vital Signs Temp Pulse Pulse Resp BP Pulse Ox 07/12/21 11:54 36.7 C 80 16 171/92 H 95 07/12/21 07:50 36.6 C 80 16 159/89 H 95 07/12/21 03:26 36.9 C 94 H 18 137/85 93
[2021-07-12] MEDS ORDERED: VANCOMYCIN TROUGH ONE (15:30)
[2021-07-12] MEDS: ACETAMINOPHEN 1,000 MG/100 ML VIAL IV SCH ×2 (17:10→21:12)
[2021-07-12] MEDS ORDERED: VANCOMYCIN HCL 1,250 MG in SODIUM CHLORIDE 0.9% 250 ML IV SCH (17:30)
--- NOTE | 2021-07-12 19:41 | Pharmacy Report ---
Pharmacy Vanc AUC Short Note - Date of Service July 12, 2021 - Assessment & Plan Assessment 46 year old F receiving vancomycin and zosyn for treatment of tuboovarian abscess, s/p exp lap, abdominal washout, R hemicolectomy. Peritoneal fluid culture (+) S. epidermidis (methicillin sensitive) and Corynebacterium, abdominal culture preliminarily growing Alpha strep and Bacteroides. Vancomycin trough drawn today appropriately and was ~ a 12hr level. Day # 3 of antimicrobial therapy. Plan Vancomycin * AUC/JEROD is the preferred PK/PD target for vancomycin * Vancomycin trough drawn today @ 1537 - 4.2mcg/mL was subtherapeutic. * Trough level of 12 mcg/mL is predicted to achieve target AUC/JEROD of 400-600 mg/L.hr and may be associated with a 7 % risk of nephrotoxicity * Change to 1250mg IV every 8 hours * Will obtain a trough level at steady state on new regimen Pharmacy will continue to follow and will adjust dose/frequency as necessary. Thank you.
[2021-07-13] MEDS: traMADol HCL 50 MG TABLET PO PRN ×4 (02:27→20:59)
[2021-07-13] MEDS: PIPERACILLIN/TAZOBACTAM 3.375 GM in DEXTROSE 5% 100 ML IV SCH (02:29)
[2021-07-13] MEDS: VANCOMYCIN HCL 1,250 MG in SODIUM CHLORIDE 0.9% 250 ML IV SCH ×2 (02:33→09:30)
[2021-07-13] MEDS: BENZONATATE 100 MG CAPSULE PO PRN ×2 (02:36→19:41)
[2021-07-13] MEDS: ACETAMINOPHEN 1,000 MG/100 ML VIAL IV SCH ×3 (06:02→20:59)
[2021-07-13 07:19] LABS: Hematocrit (blood only) 34.1 % (37-47); Hemoglobin 11.5 g/dL (12.0-16.0); Mean Corpuscular Hemoglobin 32.1 pg (25-34); Mean Corpuscular Hgb Conc 33.7 g/dL (32-36); Mean Corpuscular Volume 95.3 fL (80-100); Mean Platelet Volume 8.7 fL (7.4-10.4); Platelet Count 571 K/uL (130-400); RDW Coefficient of Variation 13.7 % (11.5-14.5); RDW Standard Deviation 47.9 fL (36.4-46.3); Red Blood Count 3.58 M/uL (4.2-5.4); White Blood Count 19.62 K/uL (4.8-10.8)
[2021-07-13 07:49] LABS: BUN Creatinine Ratio 13.1 (10-20); Calcium 8.6 mg/dl (8.5-10.1); Est GFR (African American) 138.3 ml/min; Est GFR (Non-African American) 119.3 ml/min; Phosphorus 2.4 mg/dl (2.5-4.9)
[2021-07-13] MEDS: SODIUM CHLORIDE 0.9% 1000ML 1,000 ML IV SCH (07:57)
[2021-07-13] MEDS: ENOXAPARIN INJ 40 MG/0.4 ML SYR SQ SCH (08:13)
[2021-07-13] MEDS: FAMOTIDINE 20 MG in SYRINGE 3 ML IV SCH ×2 (08:16→20:59)
[2021-07-13 08:59] LABS: Basophils # (auto) 0.03 K/uL (0-0.2); Basophils % (auto) 0.2 %; Eosinophils # (auto) 0.14 K/uL (0-0.5); Eosinophils % (auto) 0.7 %; Immature Granulocytes # (auto) 0.91 K/uL (0.00-0.02); Immature Granulocytes % (auto) 4.6 %; Lymphocytes % (auto) 5.6 %; Monocytes % (auto) 5.1 %; Neutrophils # (auto) 16.44 K/uL (1.4-6.5); Neutrophils % (auto) 83.8 %
--- NOTE | 2021-07-13 09:49 | Surgery Progress Note ---
Date of Service July 13, 2021 Assessment & Plan (1) TOA (tubo-ovarian abscess): Plan: -Start clear liquids -Await return of bowel function -WBC continues to trend down -PPN today, agree as she has been without significant nutrition -Continue drain -Replace dry dressing PRN to incision (2) Small bowel obstruction: Admission and Anticipated Discharge Date Admission Date: July 03, 2021 Subjective Pt seen and examined. Afebrile. Tolerating sips. Abdominal pain improved. Physical Exam Gastrointestinal (Abdomen): soft/appropriately TTP, drain in place with serous output, dressing c/d/i with Marcelo in place Results & Data ([facility]) Vital Signs (Past 12 Hours) Vital Signs Temp Pulse Pulse Resp BP BP Pulse Ox 07/13/21 07:53 36.6 C 81 18 160/93 H 95 07/13/21 05:15 36.7 C 85 18 178/91 H 96 07/13/21 00:00 77 07/12/21 23:03 37.0 C 63 20 134/78 98 PG Care Time/CCT Total # of Minutes Spent Total Time Spent with Patient: Total time spent is greater than 50% in coordination of care (as documented) at patient's floor/unit and/or counseling patient: Coding Level of Care Code None Diagnoses TOA (tubo-ovarian abscess) N70.93 Small bowel obstruction K56.609
--- NOTE | 2021-07-13 10:39 | Hospitalist Progress Note ---
Date of Service July 13, 2021 Assessment & Plan (1) TOA (tubo-ovarian abscess): (2) Small bowel obstruction: Plan: Sepsis 2/2 tubo-ovarian abscess Small bowel obstruction with extensive pelvic inflammatory phlegmon S/P laparotomy, drainage of right tubo-ovarian abscess, bilateral salpingo- oophorectomy POD #5 S/P Reexploration Abdominal Laparotomy, Abdominal Washout, Abdominal Wall Closure POD #3 Blood Cx: Negative to date Serology for chlamydia, Neisseria negative Peritoneal fluid culture growing staph species and corynebacterium - final Abdominal wound growing alpha strep, gram-negative bacilli - final WBC downtrending 25.67 > 21.77 >19.62 Per ID recommendations: * Plan to deescalate IV vanco and Zosyn to Unasyn 3 gm iv [id number], which can be switched to Augmentin 875 mg po bid when patient is ready for discharge * Anticipate total 7-14 days of abx therapy from 07/10/21 granted there was no obvious residual abscess noted at the end of the abd washout patient had on 07/10/21 * If there was an area of question for possible abscess not explored during the last OR procedure, recommend to repeat CT A/P to r/o any residual abscess before deciding duration of abx therapy Diet advanced to clears by general surgery Will also start PPN today,as patient been without significant nutrition for >3 days NPO for now with sips of clears per surgery, await return of bowel function IV famotidine for GI prophylaxis Appreciate input from general surgery and obgyn Continue Wound Care Pain regimen of scheduled tylenol and PRN toradol, dilaudid and tramadol PT/OT evaluations ordered, encourage ambulation (3) Positive test: Plan: Initial hcg is positive, hcg quant of 3 Pelvic ultrasound without intrauterine gestational sac (4) Hypertension: Plan: BP slightly elevated Monitor, likely 2/2 to pain (5) Hypomagnesemia: Plan: repleted, monitor (6) Hypokalemia: Plan: repleted, monitor (7) UTI (urinary tract infection): Plan: Urine Cx growing smith sensitive E coli IV cefoxitin, Levaquin>> zosyn Treated - castro cath remains in place Diarrhea stool for c diff Negative DVT Px:SQ Lovenox Disposition: Admitted to [facility]. Medicine to take over as primary Patient was seen and examined in collaboration with Dr. Renner, please see addendum Thank you for this consultation. We will follow the patient with you during their hospital stay. You can reach a member of the [facility] Hospitalist Team 19/05 via hospitalist role on tiger text. (8) Post-operative state: Admission and Anticipated Discharge Date Admission Date: July 03, 2021 Supervising Physician Co-Signing Physician Notes I have seen and examined the patient and have discussed the case with the provider above. I agree with the assessment and plan as stated. Ambulating more, castro out. No flatus or BM yet. Pain is better-management of pain appears to be more effective. She is utilizing the Tramadol more. Physical exam with dressing c/d/i. abdomen soft, ND. She is hemodynamically stable and afebrile, oxygenating well on room air. Will transfer to med/surg floor to continue convalescence/recovery. Encouraged to mobilize out of bed. Defer bowel regimen to surgical team as she is s/p bowel surgery. She is overall improved. Per ID abx changed to Unasyn with transition to Augmentin at time of discharge. She is improving clinically. Agree with above. Medicine service now primary attending. DO Kimberly Renner Patient was seen and examined in room 243. Follow-up tubo-ovarian abscess status post exploratory laparotomy with reexploration, abdominal washout and abdominal wall closure. Abdominal pain improved to 2/10 today. Ambulating in room to use restroom, encouraged ambulation in the halls. Denies nausea, not passing flatus yet. No fever, chills, lightheadedness, dizziness, CP, SOB, nausea, vomiting, dysuria. Review of Systems Review of Systems: At least ten systems reviewed and negative except as noted in the HPI. Physical Exam Physical Exam: General Appearance: WD/WN, vitals as above, NAD, sitting up in bed, conversing without issue Head: normocephalic, atraumatic Eyes: normal inspection, PERRL, conjunctivae normal, anicteric sclerae ENT: external ear and nose normal, oropharynx normal Neck: normal visual inspection, trachea midline, no thyromegaly Respiratory: normal respiratory effort, lungs clear to auscultation, no wheeze, rales, rhonchi. No accessory muscle use Cardiovascular: regular rate, rhythm, no murmur, normal peripheral pulses, no BLE edema. Vessels: no JVD Chest: normal inspection of chest Abdomen/GI: normal bowel sounds, soft, mild bilateral suprapubic TTP, dressing c/d/i, drain visualized. No hepatosplenomegaly Extremities/Musculoskeletal: no cyanosis or clubbing, extremities motor strength 5/5 Neurologic: PERRL, CN's II-XI intact bilaterally and moves all extremities Psychiatric: A+Ox3 Skin: no rashes, normal color, warm/dry Results & Data Results & Data ([facility]) Vital Signs (Past 12 Hours) Vital Signs Temp Pulse Pulse Resp BP BP Pulse Ox 07/13/21 07:53 36.6 C 81 18 160/93 H 95 07/13/21 05:15 36.7 C 85 18 178/91 H 96 07/13/21 00:00 77 07/12/21 23:03 37.0 C 63 20 134/78 98 Laboratory Results Short CBC 07/13/21 Range/Units 07:09 WBC 19.62 H (4.8-10.8) K/uL Hgb 11.5 L (12.0-16.0) g/dL Hct 34.1 L (37-47) % Plt Count 571 H (130-400) K/uL BMP 07/13/21 07:09 Sodium 138 Potassium 4.0 Chloride 104 Carbon Dioxide 27 BUN 6 L Creatinine 0.47 L Glucose 115 H Calcium 8.6 Liver Function 07/13/21 Range/Units 07:09 Total Bilirubin 0.3 (0.2-1) mg/dl AST 30 (15-37) U/L ALT 47 (12-78) U/L Alkaline Phosphatase 101 (45-117) U/L Diagnostic Findings Abdomen/Pelvis CT 07/03/21 14:38 CT abd pelvis IV con only CLINICAL HISTORY: fever abd pain COMPARISON STUDY: None. TECHNIQUE: A dose lowering technique was utilized adhering to the principles of ALARA. CT DOSE: 584.97 mGycm FINDINGS: Lower chest: Limited evaluation of lung bases shows no evidence of acute abnormalities.. Liver: The contrast-enhanced liver is normal in size, contour, and attenuation. There is no intrahepatic biliary ductal dilatation. The hepatic veins and portal veins are patent. Focal calcification is seen within right lobe of the liver. Gallbladder: Unremarkable. Spleen: Normal in size and attenuation. Pancreas: Unremarkable. Adrenal glands: Unremarkable. Kidneys: There is symmetric renal cortical enhancement. The kidneys are normal in size without hydronephrosis. Pelvic viscera: Urinary bladder is partially decompressed which limits evaluatio n. Uterine cavity is mildly enlarged. Tubular hypoattenuating lesions with mucosal thickening, septation, enhancement and surrounding edema is seen. Small amount of free fluid is seen within cul-de-sac. Bowel: Bowel loops are nondilated. Appendix is not well seen. Loops of large bowel are fluid-filled which could be seen in diarrheal state. Mild diverticulosis of sigmoid colon is seen which is associated with mild surrounding fat stranding which might represent developing diverticulitis or reactive changes due to adjacent inflammatory pelvic process. Peritoneum: There is no intraperitoneal free air or abdominal ascites. Vasculature: The abdominal aorta is normal in course and caliber. Adenopathy: None. Skeletal structures: Minimal degenerative changes of the spine. IMPRESSION: 1. Tubular hypoattenuating lesions with septation, mucosal enhancement and thickening as well as surrounding edema could represent pyosalpinx/tubo-ovarian abscess. Further CO[employer]ER evaluation and possible pelvic ultrasound might be considered . 2. Diverticulosis of sigmoid colon colon is seen with mild surrounding fat stranding which might represent reactive changes due to close proximity a dose of pelvic inflammatory process versus developing diverticulitis which is less likely. 3. The rest of findings as above. ACT 112: Negative or not required by law. The above report was generated using voice recognition software. It may contain grammatical, syntax or spelling errors. Electronically signed by: Neela Barrera DO 07/03/2021 4:07 PM Transvaginal US 07/03/21 18:15 PELVIC ULTRASOUND CLINICAL HISTORY: suspected TOA with +ve test COMPARISON STUDY: CT of the abdomen and pelvis performed earlier today. TECHNIQUE: Transabdominal and transvaginal sonography of the pelvis was performed. FINDINGS: Uterus measures 9.7 x 4.3 x 5.2 cm. Endometrium measures 4 mm in thickness. No intrauterine gestational sac is identified. There is a small amount of fluid within the pelvis. Left ovary is sonographically normal on transabdominal exam, measuring 2.3 x 1.7 x 2.5 cm. The right ovary is partially obscured, measuring approximately 2.9 x 2.1 x 2.3 cm. Color flow is identified within each ovary. Note is made of a complex superior right adnexal fluid collection, adjacent to the ovary and superior aspect of the uterus. This ext ends to the midline. This corresponds to the fluid collection shown on CT performed earlier today. Measurements are difficult to obtain by sonography however this measures approximately 6 x 4 cm. This contains hypoechoic material. IMPRESSION: 1. Complex multiloculated collection within the superior right adnexa, adjacent to the right ovary and superior aspect of the uterus extending to the midline. This corresponds to the collection shown on CT. Measurements difficult to obtain by sonography however the largest component measures approximately 6 x 4 cm. This is suggestive of a tubo-ovarian abscess. 2. No intrauterine gestational sac identified. This could be correlated with beta hCG levels. 3. Small amount of fluid within the pelvis. ACT 112: Negative or not required by law. Electronically signed by: Dayron Garcia M.D. 07/03/2021 7:48 PM Pelvis Ultrasound 07/03/21 18:16 PELVIC ULTRASOUND CLINICAL HISTORY: suspected TOA with +ve test COMPARISON STUDY: CT of the abdomen and pelvis performed earlier today. TECHNIQUE: Transabdominal and transvaginal sonography of the pelvis was performed. FINDINGS: Uterus measures 9.7 x 4.3 x 5.2 cm. Endometrium measures 4 mm in thickness. No intrauterine gestational sac is identified. There is a small amount of fluid within the pelvis. Left ovary is sonographically normal on transabdominal exam, measuring 2.3 x 1.7 x 2.5 cm. The right ovary is partially obscured, measuring approximately 2.9 x 2.1 x 2.3 cm. Color flow is identified within each ovary. Note is made of a complex superior right adnexal fluid collection, adjacent to the ovary and superior aspect of the uterus. This extends to the midline. This corresponds to the fluid collection shown on CT performed earlier today. Measurements are difficult to obtain by sonography however this measures approximately 6 x 4 cm. This contains hypoechoic material. IMPRESSION: 1. Complex multiloculated collection within the superior right adnexa, adjacent to the right ovary and superior aspect of the uterus extending to the midline. This corresponds to the collection shown on CT. Measurements difficult to obtain by sonography however the largest component measures approximately 6 x 4 cm. This is suggestive of a tubo-ovarian abscess. 2. No intrauterine gestational sac identified. This could be correlated with beta hCG levels. 3. Small amount of fluid within the pelvis. ACT 112: Negative or not required by law. Electronically signed by: Dayron Garcia M.D. 07/03/2021 7:48 PM Abdomen/Pelvis CT 07/07/21 09:[address] WITH IV CONTRAST CT DOSE: 372.56 mGy.cm HISTORY: Follow up study in a patient with pulmonary abscess tuboovarian absce ss, elevated WBC TECHNIQUE: Multiaxial CT images of the abdomen and pelvis were performed following the IV administration of 93 cc of Optiray, A dose lowering technique was utilized adhering to the principles of ALARA. COMPARISON STUDY: Pelvic ultrasound and CT abdomen and pelvis studies 07/03/2021 FINDINGS: Imaged inferior cardiac chambers are unremarkable. Trace left and small right pleural effusions, new from comparison. Minimal subsegmental bibasilar atelectasis. Unremarkable spleen, pancreas, adrenal glands, contracted gallbladder and liver. Patency of the hepatic and portal veins. Indeterminate ill-defined 9 mm hypodense focus of the posterior right hepatic lobe. Subcentimeter calcification of the right hepatic lobe. Unremarkable kidneys. No hydronephrosis. Dilation of the right ureter is likely reactive secondary to the inflammatory changes within the pelvis as below. Unremarkable urinary bladder, uterus and left adnexum. Multiloculated air and fluid-filled collection within the right hemipelvis measuring 9.6 x 7.9 cm on image 69 series 3 previously measured approximately 8.0 x 7.3 cm when measured in a similar fashion on comparison study. The amount of air within this collection has increased from comparison. Moderate surrounding inflammatory stranding. Interval development of numerous air and fluid-filled dilated loops of small bowel within the abdomen and pelvis with decompressed terminal ileum. Transition point is noted within the abdominal right lower quadrant adjacent to the adnexal fluid collection. Decompressed ileum with mild colonic diverticulosis. Interloop edema with trace abdominal pelvic ascites. Mild wall thickening of the distal stomach may be secondary to partial distention. A pill fragment is also present within the distal stomach. No acute fracture. IMPRESSION: 1. Mildly increased size of the multiloculated air and fluid-filled peripherally enhancing collection of the right hemipelvis suggestive of a tubo-ovarian abscess measuring up to approximately 9.6 x 7.9 cm. 2. Interval development of a small bowel obstruction with transition point within the abdominal right lower quadrant adjacent to the abscess. 3. Trace abdominal pelvic ascites with small right and trace left pleural effusions. ACT 112: Negative or not required by law. The above report was generated using voice recognition software. It may contain grammatical, syntax or spelling errors. Electronically signed by: Fausto Morrison M.D. 07/07/2021 10:43 AM Chest X-Ray 07/08/21 12:49 XR chest 1V portable HISTORY: Endotracheal tube placement. COMPARISON: None. FINDINGS: No pneumothorax. No pleural effusions. The endotracheal tube terminates approximately 5 cm from the abbie. Nasogastric tube terminates in the proximal stomach. No focal lung consolidations to suggest pneumonia. No evidence for pulmonary edema. IMPRESSION: 1. The endotracheal tube terminates 5 cm from the abbie. This could be advanced by approximately 2 cm. 2. Nasogastric tube terminates in the proximal stomach. This could also be advanced by approximately 5 cm. ACT 112: Negative or not required by law. Electronically signed by: Snoy Xavier M.D. 07/08/2021 1:29 PM KUB X-Ray 07/08/21 12:49 KUB HISTORY: OGT placement COMPARISON: Abdomen and pelvis CT 07/07/2021. FINDINGS: Nasogastric tube terminates in the proximal stomach. This should be advanced by approximately 5 to 10 cm. Dilated gas-filled loops of small bowel seen within the abdomen. This suggests a postoperative ileus. There are skin hernán within the lower abdomen. There are suture material within the right midabdomen. No renal calculi. No ureteral calculi. No pneumoperitoneum or pneumatosis. IMPRESSION: Nasogastric tube terminates in the proximal stomach. This should be advanced by approximately 5 to 10 cm. ACT 112: Negative or not required by law. Electronically signed by: Sony Xavier M.D. 07/08/2021 1:30 PM Chest X-Ray 07/09/21 16:39 XR chest 1V portable CLINICAL HISTORY: hypoxia COMPARISON STUDY: July 08, 2021 FINDINGS: No pneumothorax. No pleural effusion. Minimal atelectasis at bilateral bases. Persistent mild elevation of the right hemidiaphragm. Cardiomediastinal silhouette is within normal limits in size. No significant pulmonary vascular congestion.. Osseous structures: unremarkable Tip of endotracheal tube is projecting 4.3 cm above abbie. Stable position of gastric tube with tip and fenestrated side-port outside of [id number] and below level of hemidiaphragm. IMPRESSION: 1. Minimal atelectasis at bilateral bases, stable since prior. 2. Support apparatus as above. ACT 112: Negative or not required by law. The above report was generated using voice recognition software. It may contain grammatical, syntax or spelling errors. Electronically signed by: Neela Barrera DO 07/09/2021 5:07 PM
[2021-07-13] MEDS ORDERED: DEXTROSE 10% 1,000 ML IV PRN (10:45)
[2021-07-13] MEDS ORDERED: TPN/PPN CONSULT PHARMACY PRN (10:51)
[2021-07-13] MEDS: KETOROLAC TROMETHAMINE 15 MG/ML VIAL IV PRN ×2 (10:55→19:41)
[2021-07-13] MEDS ORDERED: PIPERACILLIN/TAZOBACTAM 4.5 GM in DEXTROSE 5% 100 ML IV SCH (11:00)
[2021-07-13 11:55] LABS: Bilirubin,Total 0.3 mg/dl (0.2-1); Magnesium 2.2 mg/dl (1.8-2.4)
[2021-07-13] MEDS ORDERED: Custom Peripheral Pn 2,400 ML in TPN BAG 0 ML IV SCH (16:00)
[2021-07-13] MEDS: AMPICILLIN/SULBACTAM SOD 3,000 MG in 0.9 % SODIUM CHLORIDE 100 ML IV SCH ×2 (18:12→23:41)
[2021-07-14] MEDS: traMADol HCL 50 MG TABLET PO PRN ×3 (03:13→17:19)
[2021-07-14] MEDS: KETOROLAC TROMETHAMINE 15 MG/ML VIAL IV PRN ×2 (03:13→23:10)
[2021-07-14] MEDS: ACETAMINOPHEN 1,000 MG/100 ML VIAL IV SCH ×3 (06:00→22:53)
[2021-07-14] MEDS: AMPICILLIN/SULBACTAM SOD 3,000 MG in 0.9 % SODIUM CHLORIDE 100 ML IV SCH ×4 (06:16→23:10)
[2021-07-14 06:56] LABS: BUN Creatinine Ratio 21.5 (10-20); Calcium 8.3 mg/dl (8.5-10.1); Creatinine Clr Calc Pharmacy 168.5 ml/min; Est GFR (African American) 144.6 ml/min; Est GFR (Non-African American) 124.8 ml/min; Magnesium 2.2 mg/dl (1.8-2.4); Potassium 3.8 mmol/L (3.5-5.1)
[2021-07-14 07:05] LABS: Phosphorus 3.4 mg/dl (2.5-4.9)
[2021-07-14 07:18] LABS: Hematocrit (blood only) 34.6 % (37-47); Mean Corpuscular Hgb Conc 31.8 g/dL (32-36); Mean Corpuscular Volume 97.5 fL (80-100); Mean Platelet Volume 9.1 fL (7.4-10.4); Platelet Count 655 K/uL (130-400); RDW Coefficient of Variation 13.8 % (11.5-14.5); RDW Standard Deviation 49.4 fL (36.4-46.3); Red Blood Count 3.55 M/uL (4.2-5.4); White Blood Count 17.12 K/uL (4.8-10.8)
--- NOTE | 2021-07-14 07:32 | Surgery Progress Note ---
Date of Service July 14, 2021 Assessment & Plan (1) H/O exploratory laparotomy: Plan: Patient with expected ileus from intra-abdominal inflammation Her vital signs are stable Her urine output is adequate Drain is mostly serous She is taking some clear liquids I suspect she continues to have an ileus She is now on PPN which should help with her protein status Encourage mobilization, continue IV antibiotics, obviously continues to need in- hospital care Admission and Anticipated Discharge Date Admission Date: July 03, 2021 Results & Data ([facility]) Vital Signs (Past 12 Hours) Vital Signs Temp Pulse Pulse Resp BP Pulse Ox 07/13/21 23:42 80 162/93 H 07/13/21 21:26 37.1 C 92 H 19 171/107 H 96 PG Care Time/CCT Total # of Minutes Spent Total Time Spent with Patient: Total time spent is greater than 50% in coordination of care (as documented) at patient's floor/unit and/or counseling patient: Coding Level of Care Code None Diagnoses H/O exploratory laparotomy Z98.890
[2021-07-14] MEDS: ENOXAPARIN INJ 40 MG/0.4 ML SYR SQ SCH (09:26)
[2021-07-14] MEDS: FAMOTIDINE 20 MG in SYRINGE 3 ML IV SCH ×2 (09:27→20:32)
--- NOTE | 2021-07-14 12:16 | Hospitalist Progress Note ---
Date of Service July 14, 2021 Assessment & Plan (1) Sepsis: Plan: Sepsis urinary tubo-ovarian abscess status post laparotomy and drainage of right TOA with bilateral salpingo-oophorectomy. She is resuscitated, continue per plan below. (2) TOA (tubo-ovarian abscess): Plan: Postoperative state, recovering well, possible postoperative ileus but now passing flatus. Continue aggressive pain management to help with blood pressure control. She is ambulating independently, continue broad-spectrum IV antibiotics with Unasyn. (3) Small bowel obstruction: Plan: Presented with a small bowel obstruction with extensive pelvic inflammatory phlegmon status post Right hemicolectomy with repair of a sigmoid serosal tear. Postoperative ileus as above, but now is passing flatus, continue current management. (4) Post-operative state: Plan: Diet advanced to clears by general surgery, PPN started 07/13. Further diet advancement per surgery team IV famotidine for GI prophylaxis Appreciate input from general surgery and obgyn Continue Wound and drain Care Encourage ambulation Continue pain control efforts with scheduled Tylenol punctuated by as needed tramadol (5) Positive test: Plan: Initial hcg is positive, hcg quant of 3 Pelvic ultrasound without intrauterine gestational sac (6) Hypertension: Plan: This patient likely has situational elevation in blood pressure due to pain and hospitalization. She has no known history of hypertension and is not on antihypertensives as outpatient. (7) UTI (urinary tract infection): Plan: Pansensitive E. coli, continues on Unasyn, Coombs is out (8) Right ACL tear: Plan: Ambulating independently with brace in place, follow-up with orthopedics as outpatient (9) DVT prophylaxis: Plan: Lovenox Full code Dispo-to home when medically cleared by surgery [facility] and Anticipated Discharge Date Admission Date: July 03, 2021 Subjective 46-year-old female status post right hemicolectomy and drainage of a tubo- ovarian abscess. She underwent a second surgery 2 days later for exploratory laparotomy. She is postop day 4 from her second surgery and doing well. Pain is present in the incision but manageable. She is now passing flatus but no BM. Peripheral nutrition is running. She denies any nausea, vomiting, fevers, chills or other issues at this time. She is ambulating independently Review of Systems Review of Systems: At least ten systems were reviewed and negative except as indicated in HPI above. Physical Exam Physical Exam: CONSTITUTIONAL: WNWD, vitals as above, generally well- appearing EYES: EOMI bilaterally, PERRL, normal conjunctivae, no scleral icterus ENT: external ear and nose normal, MMM RESPIRATORY: clear to auscultation bilaterally, no crackles, rales or wheezes, normal respiratory effort CARDIOVASCULAR: regular rate and rhythm, S1 and 2 heard without murmurs, gallops or rubs, no JVD, no peripheral edema GASTROINTESTINAL: soft, tender to palpation in midline incision which is covered with dressing, clean, dry, intact, drain in place draining serosanguineous fluid, nondistended MUSCULOSKELETAL: strength 5/5 throughout, ambulating independently SKIN: warm and dry NEUROLOGIC: CN 2-12 grossly intact, no sensory deficit, normal cognition, normal speech, no tremor. No gross focal deficits. PSYCHIATRIC: alert cooperative and oriented to person, place and time. Results & Data Results & Data ([facility]) Vital Signs (Past 12 Hours) Vital Signs Temp Pulse Resp BP Pulse Ox 07/14/21 10:46 76 16 175/97 H 07/14/21 07:49 37 C 92 H 20 176/104 H 95 Laboratory Results Short CBC 07/14/21 Range/Units 05:58 WBC 17.12 H (4.8-10.8) K/uL Hgb 11.0 L (12.0-16.0) g/dL Hct 34.6 L (37-47) % Plt Count 655 H (130-400) K/uL BMP 07/14/21 05:57 Sodium 137 Potassium 3.8 Chloride 105 Carbon Dioxide 27 BUN 9 Creatinine 0.41 L Glucose 146 H Calcium 8.3 L Medications Administered Current Inpatient Medications Benzonatate (Benzonatate 100 Mg Capsule) 100 mg PO TID PRN PRN Reason: Cough Stop: 08/11/21 09:43 Last Admin: 07/13/21 19:41 Dose: 100 mg Documented by: Enoxaparin Sodium (Enoxaparin Inj 40 Mg/0.4 Ml Syr) 40 mg SQ Q24H BROOKE Stop: 08/12/21 08:59 Last Admin: 07/14/21 09:26 Dose: 40 mg Documented by: Hydromorphone HCl (Hydromorphone Inj 0.5 Mg/0.5 Ml Syr) 0.5 mg IV Q3H PRN; Protocol PRN Reason: Pain Stop: 07/24/21 13:24 Famotidine 20 mg/ Syringe 5 mls @ 2.5 mls/min IV Q12H BROOKE Stop: 08/09/21 20:59 Last Admin: 07/14/21 09:27 Dose: 2.5 mls/min Documented by: Acetaminophen (Ofirmev) 1,000 mg in 100 mls @ 400 mls/hr IV Q8 BROOKE Stop: 07/15/21 14:59 Last Infusion: 07/14/21 06:16 Dose: Infused Documented by: Dextrose (D10w) 1,000 mls @ 0 mls/hr IV .Q0M PRN PRN Reason: protocol (see label comments) Stop: 08/12/21 10:44 Nutrition (Parenteral) 2,400 (ml/ TPN BAG) 2,400 mls @ 100 mls/hr IV .Q24H BROOKE; Protocol Stop: 07/14/21 15:59 Last Admin: 07/13/21 17:33 Dose: 100 mls/hr Documented by: Ampicillin Sodium/Sulbactam Sodium 3,000 mg/ Sodium Chloride 108 mls @ 200 mls/hr IV Q6H BROOKE; Protocol Stop: 07/23/21 17:59 Last Admin: 07/14/21 12:03 Dose: 200 mls/hr Documented by: Nutrition (Parenteral) 2,400 (ml/ TPN BAG) 2,400 mls @ 100 mls/hr IV .Q24H BROOKE; Protocol Stop: 07/15/21 15:59 Ketorolac Tromethamine (Ketorolac Tromethamine 15 Mg/Ml Vial) 15 mg IV Q6H PRN PRN Reason: Pain Stop: 07/17/21 14:31 Last Admin: 07/14/21 03:13 Dose: 15 mg Documented by: Miscellaneous Information (Tpn/Ppn Consult Pharmacy) 1 ea N/A UD PRN PRN Reason: Consult Stop: 08/12/21 10:50 Tramadol HCl (Tramadol Hcl 50 Mg Tablet) 50 mg PO Q4H PRN PRN Reason: Pain Stop: 08/10/21 13:51 Last Admin: 07/14/21 09:35 Dose: 50 mg Documented by:
[2021-07-14] MEDS ORDERED: Custom Peripheral Pn 2,400 ML in TPN BAG 0 ML IV SCH (16:00)
[2021-07-15] MEDS: traMADol HCL 50 MG TABLET PO PRN ×2 (05:52→14:05)
[2021-07-15] MEDS: ACETAMINOPHEN 1,000 MG/100 ML VIAL IV SCH ×2 (06:01→14:58)
[2021-07-15] MEDS: AMPICILLIN/SULBACTAM SOD 3,000 MG in 0.9 % SODIUM CHLORIDE 100 ML IV SCH ×4 (06:24→23:34)
--- NOTE | 2021-07-15 06:55 | Surgery Progress Note ---
Date of Service July 15, 2021 Assessment & Plan (1) H/O exploratory laparotomy: Plan: She looks much better this morning Much brighter affect Passing flatus and had a small bowel movement Wants to try more food On PPN-last albumin was very low-we will need to continue Advance to full liquids Encourage ambulation Continue IV antibiotics Admission and Anticipated Discharge Date Admission Date: July 03, 2021 Results & Data ([facility]) Vital Signs (Past 12 Hours) Vital Signs Temp Pulse Resp BP Pulse Ox 07/14/21 23:28 37 C 77 16 167/81 H 95 PG Care Time/CCT Total # of Minutes Spent Total Time Spent with Patient: Total time spent is greater than 50% in coordination of care (as documented) at patient's floor/unit and/or counseling patient: Coding Level of Care Code None Diagnoses H/O exploratory laparotomy Z98.890
[2021-07-15 07:59] LABS: Calcium 8.7 mg/dl (8.5-10.1); Creatinine Clr Calc Pharmacy 150.2 ml/min; Est GFR (African American) 139.2 ml/min; Est GFR (Non-African American) 120.1 ml/min; Magnesium 2.3 mg/dl (1.8-2.4); Potassium 4.9 mmol/L (3.5-5.1)
[2021-07-15] MEDS: amLODIPine BESYLATE 5 MG TAB PO SCH (09:35)
[2021-07-15] MEDS: FAMOTIDINE 20 MG in SYRINGE 3 ML IV SCH ×2 (09:36→20:05)
[2021-07-15] MEDS: ENOXAPARIN INJ 40 MG/0.4 ML SYR SQ SCH (09:36)
--- NOTE | 2021-07-15 10:42 | Hospitalist Progress Note ---
Date of Service July 15, 2021 Assessment & Plan (1) Sepsis: Plan: Sepsis urinary tubo-ovarian abscess status post laparotomy and drainage of right TOA with bilateral salpingo-oophorectomy. She is resuscitated, continue per plan below. (2) TOA (tubo-ovarian abscess): Plan: Postoperative state, recovering well, possible postoperative ileus but now passing flatus. Continue aggressive pain management to help with blood pressure control. She is ambulating independently, continue broad-spectrum IV antibiotics with Unasyn. (3) Small bowel obstruction: Plan: Presented with a small bowel obstruction with extensive pelvic inflammatory phlegmon status post Right hemicolectomy with repair of a sigmoid serosal tear. Postoperative ileus as above, but now is passing flatus, no BM yet, continue current management. (4) Post-operative state: Plan: Diet advanced to full liquids by general surgery, PPN started 07/13. Further diet advancement per surgery team IV famotidine for GI prophylaxis Appreciate input from general surgery and obgyn Continue Wound and drain Care Encourage ambulation Continue pain control efforts with scheduled Tylenol punctuated by as needed tramadol (5) Positive test: Plan: Initial hcg is positive, hcg quant of 3 Pelvic ultrasound without intrauterine gestational sac (6) Hypertension: Plan: This patient likely has situational elevation in blood pressure due to pain and hospitalization. She has no known history of hypertension and is not on antihypertensives as outpatient. Started amlodipine 5mg this am. (7) UTI (urinary tract infection): Plan: Pansensitive E. coli, continues on Unasyn, Coombs is out (8) Right ACL tear: Plan: Ambulating independently with brace in place, follow-up with orthopedics as outpatient (9) DVT prophylaxis: Plan: Lovenox Full code Dispo-to home when medically cleared by surgery Tressa Renner DO [facility] Admission and Anticipated Discharge Date Admission Date: July 03, 2021 Subjective 46-year-old female status post right hemicolectomy and drainage of a tubo- ovarian abscess. She underwent a second surgery 2 days later for exploratory laparotomy. She is postop day 5 from her second surgery and continues to do well. Incisional pain continues to improve. She is now passing flatus and some minimal stool with one of the episodes. No formed BM at this time. Peripheral nutrition is running. She notes to have had an IV replaced 3 times overnight. Denies any other nausea, vomiting, fevers, chills or other issues. She is ambulating independently. Drain still in place. Review of Systems Review of Systems: At least ten systems were reviewed and negative except as indicated in HPI above. Physical Exam Physical Exam: CONSTITUTIONAL: WNWD, vitals as above, generally well- appearing EYES: normal conjunctivae, no scleral icterus ENT: external ear and nose normal, MMM RESPIRATORY: clear to auscultation bilaterally, no crackles, rales or wheezes, normal respiratory effort CARDIOVASCULAR: regular rate and rhythm, S1 and 2 heard without murmurs, gallops or rubs, no JVD, no peripheral edema GASTROINTESTINAL: soft, tender to palpation in midline incision which is covered with dressing, clean, dry, intact, drain in place draining serosanguineous fluid, nondistended MUSCULOSKELETAL: strength 5/5 throughout, ambulating independently SKIN: warm and dry NEUROLOGIC: CN 2-12 grossly intact, no sensory deficit, normal cognition, normal speech, no tremor. No gross focal deficits. PSYCHIATRIC: alert cooperative and oriented to person, place and time. Results & Data Results & Data ([facility]) Vital Signs (Past 12 Hours) Vital Signs Temp Pulse Resp BP Pulse Ox 07/15/21 07:35 37.1 C 85 20 169/89 H 96 07/14/21 23:28 37 C 77 16 167/81 H 95 Laboratory Results [facility] 07/15/21 06:10 Sodium 139 Potassium 4.9 D Chloride 106 Carbon Dioxide 27 BUN 11 Creatinine 0.46 L Glucose 111 H Calcium 8.7 Medications Administered Current Inpatient Medications Amlodipine Besylate (Amlodipine Besylate 5 Mg Tab) 5 mg PO QAM [facility] Stop: 08/14/21 08:59 Last Admin: 07/15/21 09:35 Dose: 5 mg Documented by: Benzonatate (Benzonatate 100 Mg Capsule) 100 mg PO TID PRN PRN Reason: Cough Stop: 08/11/21 09:43 Last Admin: 07/13/21 19:41 Dose: 100 mg Documented by: Enoxaparin Sodium (Enoxaparin Inj 40 Mg/0.4 Ml Syr) 40 mg SQ Q24H BROOKE Stop: 08/12/21 08:59 Last Admin: 07/15/21 09:36 Dose: 40 mg Documented by: Hydromorphone HCl (Hydromorphone Inj 0.5 Mg/0.5 Ml Syr) 0.5 mg IV Q3H PRN; Protocol PRN Reason: Pain Stop: 07/24/21 13:24 Last Admin: 07/14/21 20:32 Dose: 0.5 mg Documented by: Famotidine 20 mg/ Syringe 5 mls @ 2.5 mls/min IV Q12H BROOKE Stop: 08/09/21 20:59 Last Admin: 07/15/21 09:36 Dose: 2.5 mls/min Documented by: Acetaminophen (Ofirmev) 1,000 mg in 100 mls @ 400 mls/hr IV Q8 BROOKE Stop: 07/15/21 14:59 Last Infusion: 07/15/21 06:24 Dose: Infused Documented by: Dextrose (D10w) 1,000 mls @ 0 mls/hr IV .Q0M PRN PRN Reason: protocol (see label comments) Stop: 08/12/21 10:44 Ampicillin Sodium/Sulbactam Sodium 3,000 mg/ Sodium Chloride 108 mls @ 200 mls/hr IV Q6H BROOKE; Protocol Stop: 07/23/21 17:59 Last Infusion: 07/15/21 06:59 Dose: Infused Documented by: Nutrition (Parenteral) 2,400 (ml/ TPN BAG) 2,400 mls @ 100 mls/hr IV .Q24H BROOKE; Protocol Stop: 07/15/21 15:59 Last Admin: 07/14/21 17:27 Dose: 100 mls/hr Documented by: Nutrition (Parenteral) 2,400 (ml/ TPN BAG) 2,400 mls @ 100 mls/hr IV .Q24H BROOKE; Protocol Stop: 07/16/21 15:59 Ketorolac Tromethamine (Ketorolac Tromethamine 15 Mg/Ml Vial) 15 mg IV Q6H PRN PRN Reason: Pain Stop: 07/17/21 14:31 Last Admin: 07/14/21 23:10 Dose: 15 mg Documented by: Miscellaneous Information (Tpn/Ppn Consult Pharmacy) 1 ea N/A UD PRN PRN Reason: Consult Stop: 08/12/21 10:50 Tramadol HCl (Tramadol Hcl 50 Mg Tablet) 50 mg PO Q4H PRN PRN Reason: Pain Stop: 08/10/21 13:51 Last Admin: 07/15/21 05:52 Dose: 50 mg Documented by:
--- NOTE | 2021-07-15 12:32 | Gynecologic Progress Note ---
Date of Service July 15, 2021 Assessment & Plan Admission and Anticipated Discharge Date Admission Date: July 03, 2021 Subjective Patient is seen and examined in room 378 Feels better, smiling now Pain is under control with PO meds On TPN but started full liquids yesterday and tolerating without N&V. Flatus+, BM+ No VB No fever/ chills/ N&V/ pain in legs Vital Signs Temp Pulse Resp BP Pulse Ox 07/15/21 07:35 37.1 C 85 20 169/89 H 96 07/14/21 23:28 37 C 77 16 167/81 H 95 07/14/21 16:00 36.6 C 82 20 154/90 H 97 Intake and Output 07/14/21 07/15/21 07/15/21 22:59 06:59 14:59 Intake Total 2508 / 3812 616 / 3812 46.667 / 46.667 Output Total Balance 2493 / 3725 576 / 3725 46.667 / 46.667 Intake: IV 2508 / 3132 416 / 3132 46.667 / 46.667 Acetaminophen 1,000 mg In 100 200 / 300 ml @ 400 mls/hr IV Q8 BROOKE Rx#: [id number] Ampicillin/Sulbactam Sod 3,000 108 / 432 216 / 432 46.667 / 46.667 mg In 0.9 % Sodium Chloride 100 ml @ 200 mls/hr IV Q6H BROOKE Rx# :[id number] Custom Peripheral Pn 2,400 ml 2400 / 2400 In TPN Bag 0 ml @ 100 mls/hr IV .Q24H BROOKE Rx#:[id number] Oral 200 / 680 Output: Drain Output Lower Abdomen FREDDIE Other: # Unmeasured Voids 1 07/15/21 07/15/21 07/15/21 Range/Units 12:05 06:10 06:10 Sodium 139 (136-145) mmol/L Potassium 4.9 D (3.5-5.1) mmol/L Chloride 106 (98-107) mmol/L Carbon Dioxide 27 (21-32) mmol/L Anion Gap 6.0 (3-11) BUN 11 (7-18) mg/dl Creatinine 0.46 L (0.6-1.2) mg/dl Est Cr Clr Drug Dosing 150.2 ml/min Est GFR ( Amer) 139.2 ml/min Est GFR (Non-Af Amer) 120.1 ml/min BUN/Creatinine Ratio 23.0 H (10-20) Glucose 111 H (70-99) mg/dl POC Glucose Pending (70-99) mg/dl Calcium 8.7 (8.5-10.1) mg/dl Phosphorus 3.7 (2.5-4.9) mg/dl Magnesium 2.3 (1.8-2.4) mg/dl 07/15/21 Range/Units 05:55 Sodium (136-145) mmol/L Potassium (3.5-5.1) mmol/L Chloride (98-107) mmol/L Carbon Dioxide (21-32) mmol/L Anion Gap (3-11) BUN (7-18) mg/dl Creatinine (0.6-1.2) mg/dl Est Cr Clr Drug Dosing ml/min Est GFR ( Amer) ml/min Est GFR (Non-Af Amer) ml/min BUN/Creatinine Ratio (10-20) Glucose (70-99) mg/dl POC Glucose 120 H (70-99) mg/dl Calcium (8.5-10.1) mg/dl Phosphorus (2.5-4.9) mg/dl Magnesium (1.8-2.4) mg/dl PE: General: Alert, orientedx3, NAD CVS: S1S2 RRR Lungs: CTAB Abd: soft, appropriately tender, less distended, Incisions C/D/I, hernán intact, draining serosanginous fluid into FREDDIE drain No VB Ext: NT, no edema, AP: 46 yo female s/p Exp. Lap, drainage of TOA, ROMÁN, Right hemicolectomy , pod#7, then 2nd surgery with surgery team on 07/10 VSS Afebrile doing well WBCC trending down Continue to monitor closely Orders per surgery and medicine Results & Data ([facility]) Vital Signs (Past 12 Hours) Vital Signs Temp Pulse Resp BP Pulse Ox 07/15/21 07:35 37.1 C 85 20 169/89 H 96
[2021-07-15] MEDS ORDERED: Custom Peripheral Pn 2,400 ML in TPN BAG 0 ML IV SCH (16:00)
[2021-07-16] MEDS: AMPICILLIN/SULBACTAM SOD 3,000 MG in 0.9 % SODIUM CHLORIDE 100 ML IV SCH ×4 (06:22→23:56)
[2021-07-16 07:04] LABS: Hematocrit (blood only) 38.4 % (37-47); Hemoglobin 11.9 g/dL (12.0-16.0); Mean Corpuscular Hemoglobin 30.6 pg (25-34); Mean Corpuscular Volume 98.7 fL (80-100); Mean Platelet Volume 9.4 fL (7.4-10.4); Platelet Count 730 K/uL (130-400); RDW Coefficient of Variation 14.3 % (11.5-14.5); RDW Standard Deviation 51.3 fL (36.4-46.3); Red Blood Count 3.89 M/uL (4.2-5.4)
[2021-07-16] MEDS: ENOXAPARIN INJ 40 MG/0.4 ML SYR SQ SCH (07:11)
[2021-07-16] MEDS: FAMOTIDINE 20 MG in SYRINGE 3 ML IV SCH ×2 (07:12→19:29)
[2021-07-16] MEDS: amLODIPine BESYLATE 5 MG TAB PO SCH (07:13)
[2021-07-16 07:26] LABS: Basophils # (auto) 0.02 K/uL (0-0.2); Basophils % (auto) 0.1 %; Eosinophils % (auto) 1.2 %; Immature Granulocytes # (auto) 0.78 K/uL (0.00-0.02); Immature Granulocytes % (auto) 4.6 %; Lymphocytes # (auto) 1.51 K/uL (1.2-3.4); Lymphocytes % (auto) 8.9 %; Monocytes % (auto) 5.3 %; Neutrophils # (auto) 13.49 K/uL (1.4-6.5); Neutrophils % (auto) 79.9 %
[2021-07-16 07:46] LABS: BUN Creatinine Ratio 20.3 (10-20); Calcium 8.9 mg/dl (8.5-10.1); Creatinine Clr Calc Pharmacy 119.1 ml/min; Est GFR (Non-African American) 111.3 ml/min; Phosphorus 4.2 mg/dl (2.5-4.9)
[2021-07-16 09:34] LABS: Magnesium 2.3 mg/dl (1.8-2.4); Potassium 4.1 mmol/L (3.5-5.1)
--- NOTE | 2021-07-16 09:53 | Surgery Progress Note ---
Date of Service July 16, 2021 Assessment & Plan (1) TOA (tubo-ovarian abscess): Plan: POD 8/6 advance to regular diet will discuss PPN with Dr. Batista Admission and Anticipated Discharge Date Admission Date: July 03, 2021 Supervising Physician Co-Signing Physician Notes I personally saw and evaluated the patient with Ravi Nunn PA-C and agree with the assessment and plan 46 yo female POD#8/6 ex-lap, drainage of TO abscess, right hemicolectomy, repair of sigmoid serosal tear -Advance to regular diet -If tolerates diet and FREDDIE drainage remains stable, ok to be discharged tomorrow -No need for IV ABX from surgical standpoint, Ok with Augmentin -Will remove FREDDIE drain prior to discharge -F/u in 1 week as outpatient for staple removal Subjective having loose BMs, tolerating full liquids, pain control better Physical Exam Gastrointestinal (Abdomen): Inspection/Auscultation: + abdominal surgical drain present (20-30 cc per shift) Percussion/Palpation: abdomen soft Results & Data ([facility]) Vital Signs (Past 12 Hours) Vital Signs Temp Pulse Pulse Resp BP Pulse Ox 07/16/21 08:00 37 C 88 12 151/83 H 96 07/16/21 07:13 37.0 C 89 16 151/83 H 96 07/15/21 22:37 36.9 C 77 18 147/81 H 94 PG Care Time/CCT Total # of Minutes Spent Total Time Spent with Patient: Total time spent is greater than 50% in coord ination of care (as documented) at patient's floor/unit and/or counseling patient: Coding Level of Care Code None Diagnoses TOA (tubo-ovarian abscess) N70.93
[2021-07-16] MEDS ORDERED: oxyCODONE/ACETAMINOPHEN 5mg/325mg TAB PO PRN ×2 (09:55)
--- NOTE | 2021-07-16 10:27 | Progress Note ---
Date of Service July 16, 2021 Assessment & Plan (1) TOA (tubo-ovarian abscess): Plan: POD 8/6 Ex laparotomy Drainage of TOA ROMÁN Right hemicolectomy Pt on PO food and tolerating it well Surgery managing pt 's care Admission and Anticipated Discharge Date Admission Date: July 03, 2021 Review of Systems Review of Systems: All systems reviewed & are unremarkable except as noted in HPI & below Physical Exam Constitutional: WD/WN, vitals as above Eyes: PERRL, conjunctivae normal, anicteric sclerae ENMT: external ear and nose normal, oropharynx normal Neck: trachea midline, no thyromegaly Respiratory: normal respiratory effort, lungs clear to auscultation Cardiovascular: RRR, no murmur, no edema Chest (Breasts): normal inspection/palpation of breasts Gastrointestinal (Abdomen): normal bowel sounds, soft, nontender, no hepatosplenomegaly Musculoskeletal: no cyanosis or clubbing, extremities motor strength 5/5 Skin: + incision (Incision clean,dry and intact) Neurologic: patellar DTR's 2+ bilat, sensation intact Psychiatric: A+Ox3, euthymic affect Genitourinary: no vaginal lesions, no adnexal mass Lymphatic: no cervical or axillary lymphadenopathy Results & Data ([facility]) Vital Signs (Past 12 Hours) Vital Signs Temp Pulse Pulse Resp BP Pulse Ox 07/16/21 10:20 36.9 C 87 87 12 154/89 H 97 07/16/21 08:00 37 C 88 12 151/83 H 96 07/16/21 07:13 37.0 C 89 16 151/83 H 96 07/15/21 22:37 36.9 C 77 18 147/81 H 94
--- NOTE | 2021-07-16 12:03 | Hospitalist Progress Note ---
Date of Service July 16, 2021 Assessment & Plan (1) Sepsis: (2) TOA (tubo-ovarian abscess): (3) Small bowel obstruction: Plan: Sepsis 2/2 tubo-ovarian abscess - POA, now resolved Small bowel obstruction with extensive pelvic inflammatory phlegmon S/P laparotomy, drainage of right tubo-ovarian abscess, bilateral salpingo- oophorectomy POD #5 S/P Reexploration Abdominal Laparotomy, Abdominal Washout, Abdominal Wall Closure POD #3 Blood Cx: Negative to date Serology for chlamydia, Neisseria negative Peritoneal fluid culture growing staph species and corynebacterium - final Abdominal wound growing alpha strep, gram-negative bacilli - final WBC downtrending 25.67 > 21.77 >19.62 > 16.90 Per ID recommendations: De-escalated IV vanco and Zosyn to Unasyn 3 gm iv [id number], which can be switched to Augmentin 875 mg po bid when patient is ready for discharge Anticipate total 7-14 days of abx therapy from 07/10/21 granted there was no obvious residual abscess noted at the end of the abd washout patient had on 07/10/21 If there was an area of question for possible abscess not explored during the last OR procedure, recommend to repeat CT A/P to r/o any residual abscess before deciding duration of abx therapy Diet advanced to low fiber by surgery Tolerated lunch will d/c PPN IV famotidine for GI prophylaxis Appreciate input from general surgery and obgyn Continue Wound Care Pain regimen of scheduled tylenol and PRN toradol, dilaudid and tramadol -pain much more controlled PT/OT evaluations reviewed continue to encourage ambulation around room as well as incentive spirometry (4) Hypertension: Plan: No known prior history of hypertension Blood pressures have been elevated throughout hospitalization, likely in setting of situation and pain Amlodipine 5 mg started on 07/15 Mild improvement with blood pressure 154/89 today Continue to monitor, if remains elevated will titrate to 10 mg tomorrow on 07/17. (5) Thrombocytosis: Plan: pt with gradually increasing plt, 730 today continues with leukocytosis despite antibiotics will follow will discuss with gen surg for repeat imaging, as well as obtain cxr, ua and stool if diarrhea to r/o infectious etiology repeat CT a/P per discussion with ID to determine antibiotic duration (6) Hypomagnesemia: Plan: Repleted, mag 2.3 today (7) Hypokalemia: Plan: Repleted, mag 4.1 today (8) Anemia: Plan: hgb 11.9, stable (9) Right ACL tear: Plan: confirmed with MRI OP on 05/31/21 will follow up with ortho as outpt ambulating independently with brace in place (10) DVT prophylaxis: Plan: SQ Lovenox Dispo: Med/Surg, d/c to home when able to tolerate regular diet and medically cleared by surgery FULL CODE PCP: [facility] Pt was seen and examined in collaboration with Dr. Renner, please see addendum Please contact via [place] text with questions or concerns to Aleida Gandara ([facility]). Admission and Anticipated Discharge Date Admission Date: July 03, 2021 Supervising Physician Co-Signing Physician Notes I have seen and examined the patient and have discussed the case with the provider above. I agree with the assessment and plan as stated. 46-year-old female postoperative state status post laparotomy abdominal washout right hemicolectomy and incision and drainage of right tubo-ovarian abscess with left salpingo-oophorectomy. She is postop day 6 from her second surgery and doing well. Pain is well controlled and her drain output is minimal. She is tolerating solid food at this point and off PPN. A couple of loose stools today which is expected. With her consistently elevated white count despite broad- spectrum IV antibiotics and rising platelet count, notably an acute phase reactant repeat CT imaging of the belly was performed. This reveals a small abscess present which was discussed with the surgeon. Should be amenable to treatment with continued IV antibiotics, however will discuss further with ID in a.m. She is otherwise stable, feeling well clinically and eager to go home. No evidence of pneumonia on chest x-ray.Zurdo DO Subjective Patient in room 378-2. Follow-up tubo-ovarian abscess status post exploratory laparotomy with reexploration, abdominal washout and abdominal wall closure. She is sitting up in bed and overall feels much improved. She has very dull abdominal pain, 1.5 out of 10. She tolerated her full liquid diet for breakfast. She denies any fever, chills, sweats, lightheadedness, dizziness, chest pain, shortness of breath, cough, nausea, vomiting or constipation. She is now moving her bowels and passing flatus. She had 2 loose bowel movements this morning. She is up and walking around her room. Review of Systems Review of Systems: All systems reviewed & are unremarkable except as noted in HPI & below Physical Exam Physical Exam: Gen: WD/WN, NAD, A&O x3 HEENT: Normocephalic, atraumatic, conjunctivae moist, sclerae anicteric, mucous membranes moist. Lung: Clear to Auscultation bilaterally, no wheezes/rales/rhonchi Heart: Regular rate, regular rhythm, no murmurs, rubs, or gallops Abdomen: Soft, NT, mildly distended + BS x 4. Incisions healing well, FREDDIE drain with minimal output. Extremities: No edema Skin: Warm, no rash, negative turgor. Results & Data Results & Data ([facility]) Vital Signs (Past 12 Hours) Vital Signs Temp Pulse Pulse Resp BP Pulse Ox 07/16/21 10:20 36.9 C 87 87 12 154/89 H 97 07/16/21 08:00 37 C 88 12 151/83 H 96 07/16/21 07:13 37.0 C 89 16 151/83 H 96 Laboratory Results Short CBC 07/16/21 Range/Units 06:37 WBC 16.90 H (4.8-10.8) K/uL Hgb 11.9 L (12.0-16.0) g/dL Hct 38.4 (37-47) % Plt Count 730 H (130-400) K/uL BMP 07/16/21 07/16/21 06:37 08:35 Sodium 137 Potassium 4.1 D Chloride 106 Carbon Dioxide 25 BUN 12 Creatinine 0.58 L Glucose 139 H Calcium 8.9 Medications Administered Current Inpatient Medications Amlodipine Besylate (Amlodipine Besylate 5 Mg Tab) 5 mg PO QAM BROOKE Stop: 08/14/21 08:59 Last Admin: 07/16/21 07:13 Dose: 5 mg Documented by: Benzonatate (Benzonatate 100 Mg Capsule) 100 mg PO TID PRN PRN Reason: Cough Stop: 08/11/21 09:43 Last Admin: 07/13/21 19:41 Dose: 100 mg Documented by: Enoxaparin Sodium (Enoxaparin Inj 40 Mg/0.4 Ml Syr) 40 mg SQ Q24H BR[place]KE Stop: 08/12/21 08:59 Last Admin: 07/16/21 07:11 Dose: 40 mg Documented by: Hydromorphone HCl (Hydromorphone Inj 0.5 Mg/0.5 Ml Syr) 0.5 mg IV Q3H PRN; Protocol PRN Reason: Pain Stop: 07/24/21 13:24 Last Admin: 07/14/21 20:32 Dose: 0.5 mg Documented by: Famotidine 20 mg/ Syringe 5 mls @ 2.5 mls/min IV Q12H BR[place]KE Stop: 08/09/21 20:59 Last Admin: 07/16/21 07:12 Dose: 2.5 mls/min Documented by: Dextrose (D10w) 1,000 mls @ 0 mls/hr IV .Q0M PRN PRN Reason: protocol (see label comments) Stop: 08/12/21 10:44 Ampicillin Sodium/Sulbactam Sodium 3,000 mg/ Sodium Chloride 108 mls @ 200 mls/hr IV Q6H BROOKE; Protocol Stop: 07/23/21 17:59 Last Infusion: 07/16/21 07:00 Dose: Infused Documented by: Nutrition (Parenteral) 2,400 (ml/ TPN BAG) 2,400 mls @ 100 mls/hr IV .Q24H BROOKE; Protocol Stop: 07/16/21 15:59 Last Admin: 07/15/21 16:54 Dose: 100 mls/hr Documented by: Ketorolac Tromethamine (Ketorolac Tromethamine 15 Mg/Ml Vial) 15 mg IV Q6H PRN PRN Reason: Pain Stop: 07/17/21 14:31 Last Admin: 07/14/21 23:10 Dose: 15 mg Documented by: Miscellaneous Information (Tpn/Ppn Consult Pharmacy) 1 ea N/A UD PRN PRN Reason: Consult Stop: 08/12/21 10:50 Oxycodone/Acetaminophen (Oxycodone/Acetaminophen 5mg/325mg Tab) 1 tab PO Q4H PRN PRN Reason: Pain Stop: 07/30/21 09:54 Oxycodone/Acetaminophen (Oxycodone/Acetaminophen 5mg/325mg Tab) 2 tab PO Q4H PRN PRN Reason: Pain Stop: 07/30/21 09:54 Tramadol HCl (Tramadol Hcl 50 Mg Tablet) 50 mg PO Q4H PRN PRN Reason: Pain Stop: 08/10/21 13:51 Last Admin: 07/15/21 14:05 Dose: 50 mg Documented by: (1) Sepsis Sepsis acute organ dysfunction status: unspecified Sepsis type: sepsis due to unspecified organism Qualified Code(s): A41.9 - Sepsis, unspecified organism
--- NOTE | 2021-07-16 15:13 | XRay Report ---
XR chest 2V PA/lateral HISTORY: 46 years-old Female persistent wbc acute leukocytosis COMPARISON: Chest radiograph 07/09/2021 TECHNIQUE: PA and lateral views of the chest FINDINGS: Cardiomediastinal and hilar silhouettes are within normal limits. No pneumothorax, or overt pulmonary edema. Mild blunting of the posterior costophrenic angles. No lobar airspace consolidation. Interval removal of the endotracheal and enteric tubes. Bones appear grossly intact. IMPRESSION: 1. Trace pleural effusions. 2. No airspace consolidation. ACT 112: Negative or not required by law. The above report was generated using voice recognition software. It may contain grammatical, syntax o r spelling errors. Electronically signed by: Fausto Morrison M.D. 07/16/2021 3:12 PM
[2021-07-16 15:25] LABS: Appearance Urine Clear (Clear); Bilirubin Urine Negative (Negative); Blood Urine Negative (Negative); Color Urine Yellow; Glucose Urine UA Negative (Negative); Ketones Urine Negative (Negative); Leukocyte Esterase Urine Negative (Negative); Nitrite Urine Negative (Negative); Protein Urine Negative (Negative); Specific Gravity Urine 1.013 (1.000-1.030); Urobilinogen Urine Negative (Negative)
[2021-07-16] MEDS ORDERED: OPTIRAY 320 100ml IV ONE (17:04)
--- NOTE | 2021-07-16 17:37 | CT Scan Report ---
CT SCAN OF THE ABDOMEN AND PELVIS WITH IV CONTRAST CLINICAL HISTORY: Leukocytosis. Thrombocytosis. COMPARISON STUDY: Abdominal CT dated 07/07/2021. TECHNIQUE: Following the IV administration of 94 cc of Optiray 320, CT scan of the abdomen and pelvi s is performed from the lung bases to the proximal femora. Images are reviewed in the axial, sagittal , and coronal planes. IV contrast was administered without complication. A dose lowering technique wa s utilized adhering to the principles of ALARA. CT DOSE: 324.24 mGy.cm FINDINGS: Lung bases: The heart is normal in size and without pericardial effusion. There is elevation of the r ight hemidiaphragm with segmental atelectasis at the right lung base. Subsegmental atelectasis is see n on the left. There is no airspace consolidation typical for pneumonia or pleural effusion. There is a tiny hiatal hernia. Liver: The contrast-enhanced liver is normal in size, contour, and attenuation. There is no intrahepa tic biliary ductal dilatation. The hepatic veins and portal veins are patent. A 10 mm hypodensity in the right lobe seen on image #72 may represent a small hemangioma but cannot be definitively characte rized on today's examination. Gallbladder: Contracted and grossly unremarkable. Spleen: Normal in size and attenuation. Pancreas: Unremarkable. Adrenal glands: Unremarkable. Kidneys: The contrast enhanced kidneys are normal in size and without hydronephrosis. The kidneys enh ance symmetrically. Abdominal vasculature: The abdominal aorta is normal in course and caliber. Bowel: There is postoperative change from right ileocecal resection with ileocolic anastomosis. There are mildly distended and fluid-filled loops of small bowel which measure up to 3 cm in diameter. No transition point is identified, and the appearance favors ileus. There are mildly thick-walled loops of small bowel in the lower abdomen and pelvis. There is no pneumatosis intestinalis or portal venous gas. There is sigmoid diverticulosis without CT evidence of acute diverticulitis. Peritoneum: A surgical drain is in place from a left pelvic approach. The tip is coiled in the right lower quadrant. No intraperitoneal free air is identified. There is a small residual multiloculated f luid collection in the central pelvis. The largest loculation is seen on image #329 and measures 3.3 x 1.5 cm. A more inferior loculation on image #350 measures up to 2 cm. Induration is seen throughout the mesentery. Lymphadenopathy: None. Pelvic viscera: The bladder, uterus, and adnexa are normal as visualized. Skeletal structures: No lytic or blastic lesions are seen. Soft tissues: There is a midline surgical incision with associated soft tissue induration and skin cl ips in place. IMPRESSION: 1. There is postoperative change from ileocecal resection and ileocolic anastomosis with a surgical d rain in the pelvis is above. This is new from 07/07/2021. 2. There is a small residual multiloculated fluid collection in the central pelvis, typical in appear ance for abscess. 3. The small bowel loops are mildly distended and fluid-filled. No transition point is identified and the appearance favors ileus. Clinical correlation will be required. 4. There are thick-walled loops of small bowel in the lower abdomen and pelvis. This may be related t o adjacent inflammation/peritonitis and/or a nonspecific enteritis. Clinical correlation will be requ ired. 5. Additional findings as above. ACT 112: Negative or not required by law. Electronically signed by: Scottie Reyna M.D. 07/16/2021 5:36 PM
[2021-07-17] MEDS: AMPICILLIN/SULBACTAM SOD 3,000 MG in 0.9 % SODIUM CHLORIDE 100 ML IV SCH (05:30)
[2021-07-17 06:34] LABS: Basophils # (auto) 0.03 K/uL (0-0.2); Basophils % (auto) 0.2 %; Eosinophils # (auto) 0.17 K/uL (0-0.5); Eosinophils % (auto) 1.2 %; Hematocrit (blood only) 41.4 % (37-47); Hemoglobin 12.7 g/dL (12.0-16.0); Immature Granulocytes # (auto) 0.57 K/uL (0.00-0.02); Immature Granulocytes % (auto) 3.9 %; Lymphocytes # (auto) 1.46 K/uL (1.2-3.4); Mean Corpuscular Hemoglobin 30.4 pg (25-34); Mean Corpuscular Hgb Conc 30.7 g/dL (32-36); Mean Platelet Volume 10.3 fL (7.4-10.4); Monocytes # (auto) 1.07 K/uL (0.11-0.59); Monocytes % (auto) 7.3 %; Neutrophils # (auto) 11.26 K/uL (1.4-6.5); Neutrophils % (auto) 77.4 %; Platelet Count 569 K/uL (130-400); RDW Coefficient of Variation 14.7 % (11.5-14.5); RDW Standard Deviation 52.6 fL (36.4-46.3); Red Blood Count 4.18 M/uL (4.2-5.4); White Blood Count 14.56 K/uL (4.8-10.8)
[2021-07-17 06:56] LABS: Albumin Level 2.7 gm/dl (3.4-5.0); BUN Creatinine Ratio 19.2 (10-20); Creatinine Clr Calc Pharmacy 117.1 ml/min; Est GFR (African American) 128.3 ml/min; Est GFR (Non-African American) 110.7 ml/min; Magnesium 2.2 mg/dl (1.8-2.4); Potassium 4.1 mmol/L (3.5-5.1)
[2021-07-17 06:58] LABS: Albumin Globulin Ratio 0.6 (0.9-2); Bilirubin,Total 0.4 mg/dl (0.2-1); Globulin 4.2 gm/dl (2.5-4.0); Total Protein 6.9 gm/dl (6.4-8.2)
--- NOTE | 2021-07-17 08:33 | Surgery Progress Note ---
Date of Service July 17, 2021 Assessment & Plan (1) TOA (tubo-ovarian abscess): Plan: POD 9/7 small pelvic abscess, cont abx per ID will remove drain stable for d/c soon, will remove hernán next week Admission and Anticipated Discharge Date Admission Date: July 03, 2021 Subjective tolerating diet, bowels forming, minimal pain Physical Exam Gastrointestinal (Abdomen): Inspection/Auscultation: + abdominal surgical incision (no erythema) and + abdominal surgical drain present (5 cc overnight) Results & Data ([facility]) Vital Signs (Past 12 Hours) Vital Signs Temp Pulse Pulse Resp BP Pulse Ox 07/17/21 07:53 36.7 C 86 14 136/81 95 07/16/21 22:19 36.9 C 85 15 147/78 H 97 PG Care Time/CCT Total # of Minutes Spent Total Time Spent with Patient: Total time spent is greater than 50% in coordination of care (as documented) at patient's floor/unit and/or counseling patient: Coding Level of Care Code None Diagnoses TOA (tubo-ovarian abscess) N70.93
[2021-07-17] MEDS: FAMOTIDINE 20 MG in SYRINGE 3 ML IV SCH (08:57)
[2021-07-17] MEDS: amLODIPine BESYLATE 5 MG TAB PO SCH (08:57)
[2021-07-17] MEDS: ENOXAPARIN INJ 40 MG/0.4 ML SYR SQ SCH (08:57)
[2021-07-17] MEDS ORDERED: AMOXICILLIN/CLAVULANATE 875 MG TAB PO SCH (12:00)
[2021-07-17 12:12] LABS: Prothrombin Time 10.3 Seconds (9.0-12.0)
[2021-07-17 12:47] LABS: Albumin Level 3.1 gm/dl (3.4-5.0); Bilirubin Direct 0.2 mg/dl (0-0.2); Bilirubin,Total 0.3 mg/dl (0.2-1); Total Protein 7.5 gm/dl (6.4-8.2)
[2021-07-17 13:09] LABS: Hepatitis B Surf Ag Rflx Conf Neg (Neg)
[2021-07-17 13:38] LABS: Hepatitis C IgG 13Yrs+Old_Rflx Neg (Neg)
--- NOTE | 2021-07-17 14:01 | Hospitalist Progress Note ---
Date of Service July 17, 2021 Assessment & Plan Admission and Anticipated Discharge Date Admission Date: July 03, 2021 Results & Data Results & Data ([facility]) Vital Signs (Past 12 Hours) Vital Signs Temp Pulse Resp BP Pulse Ox 07/17/21 07:53 36.7 C 86 14 136/81 95
[2021-07-17] MEDS: traMADol HCL 50 MG TABLET PO PRN (14:43)
--- NOTE | 2021-07-17 15:06 | Discharge Summary ---
Date of Service July 17, 2021 Admission HPI Per Admitting Provider The patient is a 46-year-old who presented to the Emergency Room with complaints of right abdominal pain x10 days. CT scan done showed possible tubo-ovarian abscess. The patient reports the pain has been dull and achy over the last 10 days and was getting worse. She denies any shortness of breath, chills, fever, nausea or vomiting. The pain however, was worse with twisting, turning or bending. Admission Exam Per Admitting Provider PHYSICAL EXAMINATION: GENERAL: Well-developed, well-nourished white female in moderate discomfort, but in no acute distress. VITAL SIGNS: Blood pressure 156/75, pulse of 94, respirations 18, temperature 97.9. HEART: S1 and S2, regular rhythm and rate. LUNGS: Clear to auscultation bilaterally. ABDOMEN: Slightly tender, nondistended, no guarding, no rebound. EXTREMITIES: No cyanosis, clubbing or edema. Principal Diagnosis Sepsis Tubo-ovarian abscess Small bowel obstruction Sigmoid serosal tear UTI Hypokalemia Hypomagnesemia High blood pressure Thrombocytosis Anemia Known right ACL tear, present on admission Discharge Exam Gen: WD/WN, female, sitting up at bedside, NAD, A&O x3 HEENT: Normocephalic, atraumatic, conjunctivae moist, sclerae anicteric, mucous membranes moist. Lung: Clear to Auscultation bilaterally, no wheezes/rales/rhonchi Heart: Regular rate, regular rhythm, no murmurs, rubs, or gallops Abdomen: Soft, minimally distended, NT,+BS x 4, dressing CDI, FREDDIE drain removed Extremities: No edema Skin: Warm, no rash, negative turgor. Discharge Data Allergies Allergy/AdvReac Type Severity Reaction Status Date / Time No Known Allergies Allergy Unverified 07/03/21 15:30 Consultations 07/03/21 16:56 ED Decision to Admit Stat 07/04/21 07:39 Consult Hospitalist Routine 07/07/21 11:24 Consult General Surgery Routine 07/12/21 09:45 Consult Infectious Diseases Routine Procedures Performed Operation Date: 07/08/21 08:30 Actual Procedures p Right Hemicolectomy, Primary Repair Sigmoid Serosal Tear, Application of Abthera Wound Vac(Not Applicable) - Luke A. Lester, DO s Laparotomy, Drainage and Excision of Right Tubo-Ovarian Abscess, Left Salpingo-Oophorectomy - Emmy Lomas MD Operation Date: 07/10/21 12:00 Actual Procedures p Reexploration Abdominal Laparotomy, Abdominal Washout, Abdominal Wall Closure(Not Applicable) - Luke Batista, DO Ordered Studies Abdomen/Pelvis CT 07/03/21 14:38 CT abd pelvis IV con only CLINICAL HISTORY: fever abd pain COMPARISON STUDY: None. TECHNIQUE: A dose lowering technique was utilized adhering to the principles of ALARA. CT DOSE: 584.97 mGycm FINDINGS: Lower chest: Limited evaluation of lung bases shows no evidence of acute abnormalities.. Liver: The contrast-enhanced liver is normal in size, contour, and attenuation. There is no intrahepatic biliary ductal dilatation. The hepatic veins and portal veins are patent. Focal calcification is seen within right lobe of the liver. Gallbladder: Unremarkable. Spleen: Normal in size and attenuation. Pancreas: Unremarkable. Adrenal glands: Unremarkable. Kidneys: There is symmetric renal cortical enhancement. The kidneys are normal in size without hydronephrosis. Pelvic viscera: Urinary bladder is partially decompressed which limits evaluation. Uterine cavity is mildly enlarged. Tubular hypoattenuating lesions with mucosal thickening, septation, enhancement and surrounding edema is seen. Small amount of free fluid is seen within cul-de-sac. Bowel: Bowel loops are nondilated. Appendix is not well seen. Loops of large bowel are fluid-filled which could be seen in diarrheal state. Mild diverticulosis of sigmoid colon is seen which is associated with mild surroun ding fat stranding which might represent developing diverticulitis or reactive changes due to adjacent inflammatory pelvic process. Peritoneum: There is no intraperitoneal free air or abdominal ascites. Vasculature: The abdominal aorta is normal in course and caliber. Adenopathy: None. Skeletal structures: Minimal degenerative changes of the spine. IMPRESSION: 1. Tubular hypoattenuating lesions with septation, mucosal enhancement and thickening as well as surrounding edema could represent pyosalpinx/tubo-ovarian abscess. Further [employer] evaluation and possible pelvic ultrasound might be considered . 2. Diverticulosis of sigmoid colon colon is seen with mild surrounding fat stranding which might represent reactive changes due to close proximity a dose of pelvic inflammatory process versus developing diverticulitis which is less likely. 3. The rest of findings as above. ACT 112: Negative or not required by law. The above report was generated using voice recognition software. It may contain grammatical, syntax or spelling errors. Electronically signed by: Neela Barrera DO 07/03/2021 4:07 PM Transvaginal US 07/03/21 18:15 PELVIC ULTRASOUND CLINICAL HISTORY: suspected TOA with +ve test COMPARISON STUDY: CT of the abdomen and pelvis performed earlier today. TECHNIQUE: Transabdominal and transvaginal sonography of the pelvis was performed. FINDINGS: Uterus measures 9.7 x 4.3 x 5.2 cm. Endometrium measures 4 mm in thickness. No intrauterine gestational sac is identified. There is a small amount of fluid within the pelvis. Left ovary is sonographically normal on transabdominal exam, measuring 2.3 x 1.7 x 2.5 cm. The right ovary is partially obscured, measuring approximately 2.9 x 2.1 x 2.3 cm. Color flow is identified within each ovary. Note is made of a complex superior right adnexal fluid collection, adjacent to the ovary and superior aspect of the uterus. This extends to the midline. This corresponds to the fluid collection shown on CT performed earlier today. Measurements are difficult to obtain by sonography however this measures approximately 6 x 4 cm. This contains hypoechoic material. IMPRESSION: 1. Complex multiloculated collection within the superior right adnexa, adjacent to the right ovary and superior aspect of the uterus extending to the midline. This corresponds to the collection shown on CT. Measurements difficult to obtain by sonography however the largest component measures approximately 6 x 4 cm. This is suggestive of a tubo-ovarian abscess. 2. No intrauterine gestational sac identified. This could be correlated with beta hCG levels. 3. Small amount of fluid within the pelvis. ACT 112: Negative or not required by law. Electronically signed by: Dayron Garcia M.D. 07/03/2021 7:48 PM Pelvis Ultrasound 07/03/21 18:16 PELVIC ULTRASOUND CLINICAL HISTORY: suspected TOA with +ve test COMPARISON STUDY: CT of the abdomen and pelvis performed earlier today. TECHNIQUE: Transabdominal and transvaginal sonography of the pelvis was performed. FINDINGS: Uterus measures 9.7 x 4.3 x 5.2 cm. Endometrium measures 4 mm in thickness. No intrauterine gestational sac is identified. There is a small amount of fluid within the pelvis. Left ovary is sonographically normal on transabdominal exam, measuring 2.3 x 1.7 x 2.5 cm. The right ovary is partially obscured, measuring approximately 2.9 x 2.1 x 2.3 cm. Color flow is identified within each ovary. Note is made of a complex superior right adnexal fluid collection, adjacent to the ovary and superior aspect of the uterus. This extends to the midline. This corresponds to the fluid collection shown on CT performed earlier today. Measurements are difficult to obtain by sonography however this measures approximately 6 x 4 cm. This contains hypoechoic material. IMPRESSION: 1. Complex multiloculated collection within the superior right adnexa, adjacent to the right ovary and superior aspect of the uterus extending to the midline. This corresponds to the collection shown on CT. Measurements difficult to obtain by sonography however the largest component measures approximately 6 x 4 cm. This is suggestive of a tubo-ovarian abscess. 2. No intrauterine gestational sac identified. This could be correlated with beta hCG levels. 3. Small amount of fluid within the pelvis. ACT 112: Negative or not required by law. Electronically signed by: Dayron Garcia M.D. 07/03/2021 7:48 PM Abdomen/Pelvis CT 07/07/21 09:[address] WITH IV CONTRAST CT DOSE: 372.56 mGy.cm HISTORY: Follow up study in a patient with pulmonary abscess tuboovarian abscess, elevated WBC TECHNIQUE: Multiaxial CT images of the abdomen and pelvis were performed following the IV administration of 93 cc of Optiray, A dose lowering technique was utilized adhering to the principles of ALARA. COMPARISON STUDY: Pelvic ultrasound and CT abdomen and pelvis studies 07/03/2021 FINDINGS: Imaged inferior cardiac chambers are unremarkable. Trace left and small right pleural effusions, new from comparison. Minimal subsegmental bibasilar atelectasis. Unremarkable spleen, pancreas, adrenal glands, contracted gallbladder and liver. Patency of the hepatic and portal veins. Indeterminate ill-defined 9 mm hypodense focus of the posterior right hepatic lobe. Subcentimeter calcification of the right hepatic lobe. Unremarkable kidneys. No hydronephrosis. Dilation of the right ureter is likely reactive secondary to the inflammatory changes within the pelvis as below. Unremarkable urinary bladder, uterus and left adnexum. Multiloculated air and fluid-filled collection within the right hemipelvis measuring 9.6 x 7.9 cm on image 69 series 3 previously measured approximately 8.0 x 7.3 cm when measured in a similar fashion on comparison study. The amount of air within this collection has increased from comparison. Moderate surrounding inflammatory stranding. Interval development of numerous air and fluid-filled dilated loops of small bowel within the abdomen and pelvis with decompressed terminal ileum. Transition point is noted within the abdominal right lower quadrant adjacent to the adnexal fluid collection. Decompressed ileum with mild colonic diverticulosis. Interloop edema with trace abdominal pelvic ascites. Mild wall thickening of the distal stomach may be secondary to partial distention. A pill fragment is also present within the distal stomach. No acute fracture. IMPRESSION: 1. Mildly increased size of the multiloculated air and fluid-filled peripherally enhancing collection of the right hemipelvis suggestive of a tubo-ovarian abscess measuring up to approximately 9.6 x 7.9 cm. 2. Interval development of a small bowel obstruction with transition point within the abdominal right lower quadrant adjacent to the abscess. 3. Trace abdominal pelvic ascites with small right and trace left pleural effusions. ACT 112: Negative or not required by law. The above report was generated using voice recognition software. It may contain grammatical, syntax or spelling errors. Electronically signed by: Fausto Morrison M.D. 07/07/2021 10:43 AM Chest X-Ray 07/08/21 12:49 XR chest 1V portable HISTORY: Endotracheal tube placement. COMPARISON: None. FINDINGS: No pneumothorax. No pleural effusions. The endotracheal tube terminates approximately 5 cm from the abbie. Nasogastric tube terminates in the proximal stomach. No focal lung consolidations to suggest pneumonia. No evidence for pulmonary edema. IMPRESSION: 1. The endotracheal tube terminates 5 cm from the abbie. This could be advanced by approximately 2 cm. 2. Nasogastric tube terminates in the proximal stomach. This could also be advanced by approximately 5 cm. ACT 112: Negative or not required by law. Electronically signed by: Sony Xavier M.D. 07/08/2021 1:29 PM KUB X-Ray 07/08/21 12:49 KUB HISTORY: OGT placement COMPARISON: Abdomen and pelvis CT 07/07/2021. FINDINGS: Nasogastric tube terminates in the proximal stomach. This should be advanced by approximately 5 to 10 cm. Dilated gas-filled loops of small bowel seen within the abdomen. This suggests a postoperative ileus. There are skin hernán within the lower abdomen. There are suture material within the right midabdomen. No renal calculi. No ureteral calculi. No pneumoperitoneum or pneumatosis. IMPRESSION: Nasogastric tube terminates in the proximal stomach. This should be advanced by approximately 5 to 10 cm. ACT 112: Negative or not required by law. Electronically signed by: Sony Xavier M.D. 07/08/2021 1:30 PM Chest X-Ray 07/09/21 16:39 XR chest 1V portable CLINICAL HISTORY: hypoxia COMPARISON STUDY: July 08, 2021 FINDINGS: No pneumothorax. No pleural effusion. Minimal atelectasis at bilateral bases. Persistent mild elevation of the right hemidiaphragm. Cardiomediastinal silhouette is within normal limits in size. No significant pulmonary vascular congestion.. Osseous structures: unremarkable Tip of endotracheal tube is projecting 4.3 cm above abbie. Stable position of gastric tube with tip and fenestrated side-port outside of [id number] and below level of hemidiaphragm. IMPRESSION: 1. Minimal atelectasis at bilateral bases, stable since prior. 2. Support apparatus as above. ACT 112: Negative or not required by law. The above report was generated using voice recognition software. It may contain grammatical, syntax or spelling errors. Electronically signed by: Neela Barrera DO 07/09/2021 5:07 PM Abdomen/Pelvis CT 07/16/21 13:53 CT SCAN OF THE ABDOMEN AND PELVIS WITH IV CONTRAST CLINICAL HISTORY: Leukocytosis. Thrombocytosis. COMPARISON STUDY: Abdominal CT dated 07/07/2021. TECHNIQUE: Following the IV administration of 94 cc of Optiray 320, CT scan of the abdomen and pelvis is performed from the lung bases to the proximal femora. Images are reviewed in the axial, sagittal, and coronal planes. IV contrast was administered without complication. A dose lowering technique was utilized adhering to the principles of ALARA. CT DOSE: 324.24 mGy.cm FINDINGS: Lung bases: The heart is normal in size and without pericardial effusion. There is elevation of the right hemidiaphragm with segmental atelectasis at the right lung base. Subsegmental atelectasis is seen on the left. There is no airspace consolidation typical for pneumonia or pleural effusion. There is a tiny hiatal hernia. Liver: The contrast-enhanced liver is normal in size, contour, and attenuation. There is no intrahepatic biliary ductal dilatation. The hepatic veins and portal veins are patent. A 10 mm hypodensity in the right lobe seen on image #72 may represent a small hemangioma but cannot be definitively characterized on today's examination. Gallbladder: Contracted and grossly unremarkable. Spleen: Normal in size and attenuation. Pancreas: Unremarkable. Adrenal glands: Unremarkable. Kidneys: The contrast enhanced kidneys are normal in size and without hydronephrosis. The kidneys enhance symmetrically. Abdominal vasculature: The abdominal aorta is normal in course and caliber. Bowel: There is postoperative change from right ileocecal resection with ileocolic anastomosis. There are mildly distended and fluid-filled loops of small bowel which measure up to 3 cm in diameter. No transition point is identified, and the appearance favors ileus. There are mildly thick-walled loops of small bowel in the lower abdomen and pelvis. There is no pneumatosis in testinalis or portal venous gas. There is sigmoid diverticulosis without CT evidence of acute diverticulitis. Peritoneum: A surgical drain is in place from a left pelvic approach. The tip is coiled in the right lower quadrant. No intraperitoneal free air is identified. There is a small residual multiloculated fluid collection in the central pelvis. The largest loculation is seen on image #329 and measures 3.3 x 1.5 cm. A more inferior loculation on image #350 measures up to 2 cm. Induration is seen throughout the mesentery. Lymphadenopathy: None. Pelvic viscera: The bladder, uterus, and adnexa are normal as visualized. Skeletal structures: No lytic or blastic lesions are seen. Soft tissues: There is a midline surgical incision with associated soft tissue induration and skin clips in place. IMPRESSION: 1. There is postoperative change from ileocecal resection and ileocolic anastomosis with a surgical drain in the pelvis is above. This is new from 07/07/2021. 2. There is a small residual multiloculated fluid collection in the central pelvis, typical in appearance for abscess. 3. The small bowel loops are mildly distended and fluid-filled. No transition point is identified and the appearance favors ileus. Clinical correlation will be required. 4. There are thick-walled loops of small bowel in the lower abdomen and pelvis. This may be related to adjacent inflammation/peritonitis and/or a nonspecific enteritis. Clinical correlation will be required. 5. Additional findings as above. ACT 112: Negative or not required by law. Electronically signed by: Scottie Reyna M.D. 07/16/2021 5:36 PM XR chest 2V PA/lateral HISTORY: 46 years-old Female persistent wbc acute leukocytosis COMPARISON: Chest radiograph 07/09/2021 TECHNIQUE: PA and lateral views of the chest FINDINGS: Cardiomediastinal and hilar silhouettes are within normal limits. No pneumothorax, or overt pulmonary edema. Mild blunting of the posterior costophrenic angles. No lobar airspace consolidation. Interval removal of the endotracheal and enteric tubes. Bones appear grossly intact. IMPRESSION: 1. Trace pleural effusions. 2. No airspace consolidation. ACT 112: Negative or not required by law. The above report was generated using voice recognition software. It may contain grammatical, syntax or spelling errors. Electronically signed by: Fausto Morrison M.D. 07/16/2021 3:12 PM Hospital Course (1) Sepsis: (2) TOA (tubo-ovarian abscess): (3) Small bowel obstruction: (4) Hypertension: (5) Thrombocytosis: (6) Hypomagnesemia: (7) Hypokalemia: (8) Anemia: (9) Right ACL tear: (10) DVT prophylaxis: This is a 46-year-old female who prior to hospitalization was otherwise healthy and presented to ED on 07/03/2021 secondary to right lower quadrant abdominal pain for several days. CT scan suspicious for tomorrow ovarian abscess. Initial ur ine hCG positive, but serum hCG negative. Transvaginal ultrasound negative for intrauterine gestational sac, but did reveal a complex multiloculated collection in the superior right adnexa suggestive of tubo-ovarian abscess. She was initally treated with broad-spectrum IV antibiotics. She was also found to have smith sensitive e.coli UTI which was treated appropriately with antibiotics. Unfortunately despite antibiotic therapy she developed nausea, abdominal distention and diarrhea. Her white blood cell count trended up and repeat CAT scan was performed. CT scan revealed new evidence of a small bowel obstruction and tubo-ovarian abscess which was slightly larger. She was seen in consultation by general surgery and NG tube was placed. VERIFIER and surgery teams collaborated and opted to undergo urgent exploratory laparotomy together on 07/08 with drainage of right tubo-ovarian abscess by Dr. Herzog and right hemicolectomy with repair of sigmoid serosal tear in setting of SBO by Dr. Ellis under same anesthesia.She was admitted with open abdominal wound to ICU. She returned to OR on 07/10/21 to re exploration abdominal laparotomy, abdominal washout and abdominal wall closure. Post operatively she remained on IV antibiotics vancomycin and zosyn. Infectious disease was consulted throughout hospital stay and she was eventually de escalated to IV unasyn q6h. She was started on IV PPN given NPO status. Post operative course was complicated by pain control, constipation and high blood pressure. She was placed on oral antihypertensive amlodipine which has resulted in good reduction of blood pressure. Her electrolytes were monitored and replaced during hospitalization. She gradually had diet advanced and was weaned off of PPN. On day prior to discharge a repeat CT was performed which revealed residual abscess to central pelvis. Case was discussed further with general surgery and ID. Her Freddie drains were removed. ID recommended de escalated antibiotic further to oral Augmentin 875mg TID for 3-4 weeks. It is recommended she follow up in 1 week with general surgery for staple removal. She is to have a repeat CT scan of abd/pelvis with contrast in 3-4 weeks post discharge to ensure complete resolution of abscess. Lastly on day of discharge she was noted to have mild elevated in transaminases. Her AST, ALT and alk phosphatase was 183, 388 and 156 respectively. Her album in improved to 3.1. Her INR was 1.0. This was discussed with gastroenterology team. Further recommended acute hepatitis panel. It is felt likely secondary to beta-lactam antibiotic versus PPN therapy. Is recommended she have repeat LFT panel as outpatient in 3 days. On day of discharge her vitals were stable with a BP of 136/81 and she was in good spirits eager to go home. She was tolerating a low fiber diet with out adverse effect and moving bowels. Patient is being treated during a high acuity pandemic covid surg. She was deemed medically stable by general surgery and felt stable to be discharged to home. Total Time Total Time Spent Total Time Spent (In Minutes): 90 minutes was spent face to face examination of patient, discussion and collaboration with specialists including general surgery, infectious disease and GI, and preparing necessary patient instructions and educating patient for discharge. Discharge Plan Discharge Items Patient Disposition: Home - Self-Care Reason For Visit: TUBOOVARIAN ABSCESS Discharge Diagnosis: Sepsis Tubo ovarian abscess Small Bowel Obstruction High blood pressure Low magnesium Low Potassium Anemia Condition on Discharge: Good Activity: As commented below Lifting: No more than 10 pounds Bathing Comment: OK to shower Driving/Machine Use: Resume 3 days after discharge Non-emergency contact: Surgeon Call non-emergency contact if: you have any medication questions, your pain is not controlled, you have a fever, your temperature is above 101.5 and your wound has increased redness Follow-up/Referrals: Luke Batista DO [Physician] - (Please call to make an appt to have hernán removed next week) Dejah Del Angel DO [Primary Care Provider] - 07/20/21 2:20 pm (Date & Time 07/20/2021 2:20 PM Provider Rox Stone MD Department Family Medicine [facility] ) Diet: Regular Addtl Attending Provider Instructions: MEDICATION CHANGES: New Medications Amoxicillin/clauvanic Acid (Augmentin) 875mg by mouth three times a day with food - This is your antibiotic to treat abdominal abscess Amlodipine 5 mg by mouth daily for high blood pressure Tramadol 50mg every 4 hours by mouth as needed for pain SUMMARY OF TEST RESULTS/HOSPITALIZATIONS: You were admitted to [facility] for Sepsis and Tubo ovarian Abscess which was causing a small bowel obstruction. It required surgery to drain the abscess and release and repair the obstruction & further required additional surgery to wash out your abdominal cavity and close your wound. You received IV nutrition to assist in caloric intake and protein intake while you were unable to tolerate anything by mouth. Your electrolytes including magnesium and potassium were low, these were replaced. You were treated with IV antibiotics and followed by infectious disease. It is recommended you continue antibiotics for 4 weeks or until stopped by your PCP. It is recommend you have a follow up CT scan of your abdomen in 3-4 weeks to ensure the small remaining abscess has resolved. During your hospital stay your blood pressure was noted to be elevated. You were started on a blood pressure medication called amlodipine. PENDING TEST RESULTS: None RECOMMENDATIONS FOR FOLLOW-UP: Please follow up with your PCP as scheduled on 07/20/21 @ 2:20 pm, please arrive 15 minutes early Your liver function tests were mildly elevated at discharge and it is recommended you have a repeat liver function test on 07/20/21 at your PCP follow up. Please call your surgeon to have hernán removed in 1 week. Recommend monitoring your blood pressure twice daily and keep a log of your blood pressure. Please bring this with you to your PCP follow up. Recommend taking probiotics while on antibiotics. Avoid Tylenol and Alcohol due to elevated liver functions. You may take ibuprofen 600mg tid as needed for pain. OTHER INSTRUCTIONS: Seek medical attention if you have: * temperature above 101 * chest pain or trouble breathing * abdominal pain, nausea, vomiting * diarrhea, dark stools or bloody stools * any unanswered questions or concerns Call 911 if symptoms are severe. Please take good care of yourself. It has been a pleasure taking care of you. Please take care of yourself. If you have any questions regarding your recent hospitalization please contact [facility] and request [facility] @ [phone]. Aleida Gandara PA-C Pending Studies at Discharge: Yes Studies:: Acute hepatitis panel Stand-Alone Forms: My [facility] [address], Smoking Cessation Medications and DC Order Prescriptions: New tramadol [Ultram] 50 mg tablet 50 mg PO Q4H PRN (Reason: pain) Qty: 10 RF: 0 amlodipine [Norvasc] 5 mg Tablet 5 mg PO QAM 30 Days Qty: 30 RF: 0 amoxicillin-pot clavulanate 875-125 mg tablet 1 tab PO TIDM Qty: 84 RF: 0 Continued omeprazole 20 mg capsule,delayed release(DR/EC) 20 mg PO DAILY RF: 0 Changed ibuprofen 600 mg tablet 600 mg PO TID PRN (Reason: pain) Qty: 60 RF: 0 Discharge Orders: Discharge Order (Routine); Ordered 07/17/21 Ordered By: Aleida Gallegos/Other Patient Handouts: Low-Fiber Diet Admission Data Admit Date/Time: 07/03/21 18:00 Attending Provider: Tressa Renner Admit Provider: Randall Hartley Primary Care Provider: Dejah Del Angel Other Providers: Tressa Renner ; Aleida Maynard ; Sherri Torres ; Smitha Hartley ; Sukumar Monterroso ; Luke Batista ; Sincere Schofield ; Jahaira Youngblood ; New Torres I. ; Emiliano Mao II ; Elba Jansen ; Efren Benjamin Other Interventions: Discharge Summary Assessment (RN) Last Done: 07/17/21 14:33 Supervising Physician Co-Signing Physician Notes I have seen and examined the patient and have discussed the case with the provider above. I agree with the assessment and plan as stated. She is feeling well today and tolerating PO. On exam she is hemodynamically stable with abdomen soft, NTND. She denies any abdominal pain. Heat exam is normal without peripheral edema, and lungs were CTAB. Close follow-up LFTs recommended, thought secondary to Unasyn which was started on 07/13. DO Zurdo
[2021-07-18 02:11] LABS: Hepatitis A Antibody IgM NON-REACTIVE (NON-REACTIVE); Hepatitis B Core Antibody IgM NON-REACTIVE (NON-REACTIVE)
== END 2021-07-17 15:29 | disposition home or self-care (01) | DRG 854 ==
LOC: ED 11:54 → 4N 18:00 → SUATTDRO 18:00 → 1E 07-08 12:43 → 2S 07-11 03:57 → 3N 07-13 21:23
DX: B96.20 Unspecified Escherichia coli [E. coli] as the cause of diseases classified elsewhere; N39.0 Urinary tract infection, site not specified; E83.42 Hypomagnesemia; A41.9 Sepsis, unspecified organism; K56.609 Unspecified intestinal obstruction, unspecified as to partial versus complete obstruction; D64.9 Anemia, unspecified; R19.7 Diarrhea, unspecified; I10 Essential (primary) hypertension; O00.90 Unspecified ectopic pregnancy without intrauterine pregnancy; E83.51 Hypocalcemia; Z98.51 Tubal ligation status; E87.6 Hypokalemia